=== PATIENT | female | born 1950 | race Caucasian/White ===

== ENCOUNTER 2017-06-30 22:21 | Emergency (ER) | payer MEDICARE, OTHER ==
[~2017-06-30] VITALS: Ht 162.6 cm; Wt 108.5 kg
[~2017-06-30 22:21] MED LIST: CYCLOBENZAPRINE10 MG PO; DICLOFENAC SODI75 MG PO; LEVOTHYROXINE100 MCG PO; LEVOTHYROXINE88 MCG PO; LISINOPRIL20 MG PO; LORCET HD 10-31 EACH PO; LOSARTAN POTASS25 MG PO; LOSARTAN-HCTZ1 EAC2 PO; MAGNESIUM OXID400 MG PO; MELOXICAM15 MG PO; METFORMIN HCL1000 MG PO; NORCO 5-325 TA1 EACH PO; SIMVASTATIN20 MG PO; SIMVASTATIN40 MG PO; VENTOLIN HFA18 GM INH
[2017-06-30] MEDS ORDERED: IBUPROFEN800 MG PO (23:01)
[2017-07-01] MEDS ORDERED: TAMIFLU75 MG PO (00:05)
== END 2017-07-01 00:17 | disposition home or self-care (01) ==
LOC: ED 22:21
DX: J11.1 Influenza due to unidentified influenza virus with other respiratory manifestations (principal); E78.00 Pure hypercholesterolemia, unspecified; I10 Essential (primary) hypertension; E03.9 Hypothyroidism, unspecified; E11.9 Type 2 diabetes mellitus without complications; Z87.891 Personal history of nicotine dependence; Z98.84 Bariatric surgery status; Z98.890 Other specified postprocedural states; Z88.5 Allergy status to narcotic agent; Z79.84 Long term (current) use of oral hypoglycemic drugs; Z79.899 Other long term (current) drug therapy
CPT/HCPCS: 71046; 99283

== ENCOUNTER 2019-12-08 11:41 | Emergency (ER) | payer MEDICARE, OTHER ==
[~2019-12-08] VITALS: Ht 162.6 cm; Wt 99.8 kg
[~2019-12-08 11:41] MED LIST changes: +IBUPROFEN800 MG PO; +TAMIFLU75 MG PO
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
[2019-12-08] MEDS ORDERED: BACTRIM DS TAB1 EACH PO (14:50)
--- NOTE | 2019-12-08 16:40 | EKG ---
[facility] [address] [facility] [place] [address] Signed Normal sinus rhythm Nonspecific ST and T wave abnormality Prolonged QT Abnormal ECG When compared with ECG of 15-SEP-2016 10:19, premature atrial complexes are no longer present Vent. rate has decreased BY 40 BPM T wave inversion less evident in Lateral leads Confirmed by TEODORA PEARCE DO ([id number]) on 12/08/2019 4:40:01 PM Electronically Signed By: TEODORA PEARCE DO 12/08/19 1640 PATIENT NAME: JUAN LAZO Electrocardiogram DATE OF : 50 PHYSICIAN: TEODORA PEARCE DO REPORT #: [id number] REPORT IS CONFIDENTIAL AND NOT TO BE RELEASED WITHOUT AUTHORIZATION
== END 2019-12-08 15:57 | disposition home or self-care (01) ==
LOC: ED 11:41
DX: N39.0 Urinary tract infection, site not specified (principal); E87.6 Hypokalemia; R47.81 Slurred speech; I10 Essential (primary) hypertension; E03.9 Hypothyroidism, unspecified; E11.9 Type 2 diabetes mellitus without complications; Z87.891 Personal history of nicotine dependence; Z88.5 Allergy status to narcotic agent; Z79.899 Other long term (current) drug therapy; Z79.84 Long term (current) use of oral hypoglycemic drugs
CPT/HCPCS: 70450; 70496; 70498; 71045; 80053; 81001; 84484; 85025; 85610; 85730; 93005; 93010; 99285-25; J0696; Q9967

== ENCOUNTER 2021-01-19 23:21 | Emergency (ER) | payer MEDICARE, OTHER ==
[~2021-01-19] VITALS: Ht 162.6 cm; Wt 99.8 kg
[~2021-01-19 23:21] MED LIST changes: +BACTRIM DS TAB1 EACH PO; -LOSARTAN-HCTZ1 EAC2 PO
--- OUTSIDE RECORDS SUMMARY | 2021-01-19 23:24 | XMS ---
PreManage Notification: JUAN LAZO Security Registered Nurse Obstetrics Events 1 event(s) in the past 18 months Most recent security events: Elopement at [facility] 11/26/2020 18:34 - Other Details: PATIENT LWBS. CRITERIA MET - PDMP CARE PROVIDERS NICOLASA REYES Internal Medicine: Pulmonary Disease 12/21/2018-Current PHONE: Unknown Tavo has no Care Guidelines for this patient. Care History Medical/Surgical 12/21/2018 [facility] - Patient is currently established with [facility]. If patient is seen in the ED during business hours. Please contact CHWs at [facility]. Care Recommendation: This patient has had 5 [...] care. E.D. VISIT COUNT (12 MO.) 2 [facility] TOTAL 2 NOTE: Visits indicate total known visits. ED/UCC VISIT TRACKING (12 MO.) 01/19/2021 23:22 [facility] [place] TYPE: Emergency COMPLAINT: - COLD SYMPTOMS 11/26/2020 18:34 [facility] [place] TYPE: Emergency COMPLAINT: - POST OP BRUISING INPATIENT VISIT TRACKING (12 MO.) No inpatient visits to display in this time frame [id number]
[2021-01-26] MEDS ORDERED: NITROFURANTOIN100 M1 PO (18:00)
[2021-01-26] MEDS ORDERED: NEOMYC-POLYM-DEX5 ML OU (18:00)
== END 2021-01-20 00:30 | disposition home or self-care (01) ==
LOC: ED 23:21
DX: U07.1 COVID-19 (principal); E78.00 Pure hypercholesterolemia, unspecified; I10 Essential (primary) hypertension; E03.9 Hypothyroidism, unspecified; E11.9 Type 2 diabetes mellitus without complications; Z88.5 Allergy status to narcotic agent; Z79.899 Other long term (current) drug therapy; Z79.84 Long term (current) use of oral hypoglycemic drugs
CPT/HCPCS: 94640; 99283; C9803; U0003

== ENCOUNTER 2021-01-22 20:10 | Emergency (ER) | payer MEDICARE, OTHER ==
[~2021-01-22] VITALS: Ht 162.6 cm; Wt 99.8 kg
--- OUTSIDE RECORDS SUMMARY | 2021-01-22 20:12 | XMS ---
PreManage Notification: JUAN LAZO Security Home Visitor Events 1 event(s) in the past 18 months Most recent security events: Elopement at [facility] 11/26/2020 18:34 - Other Details: PATIENT LWBS. CRITERIA MET - PDMP - [facility] - 2 Visits in 30 Days CARE PROVIDERS CHRSITINE BALDWIN Family Medicine 01/22/2021-Current PHONE: [phone] NICOLASA REYES Internal Medicine: Pulmonary Disease 12/21/2018-Current PHONE: Unknown Tavo has no Care Guidelines for this patient. Care History Medical/Surgical 12/21/2018 [facility] - Patient is currently established with [facility]. If patient is seen in the ED during business hours. Please contact CHWs at [facility]. Care Recommendation: This patient has had 5 or more Emergency Department visits in the last 12 months.\T\nbsp; Patient requires education on the scope and purpose of the ED as an acute care provider not a Primary Care Provider and should not be utilized for chronic conditions.\T\nbsp; These are guidelines and the provider should exercise clinical judgment when providing care. EElena VISIT COUNT (12 MO.) 3 [facility] TOTAL 3 NOTE: Visits indicate total known visits. ED/UCC VISIT TRACKING (12 MO.) 01/22/2021 20:10 [facility] [place] TYPE: Emergency COMPLAINT: - WEAKNESS, BODY ACHES 01/19/2021 23:22 [facility] [place] TYPE: Emergency COMPLAINT: - COLD SYMPTOMS 11/26/2020 18:34 [facility] [place] TYPE: Emergency COMPLAINT: - POST OP BRUISING INPATIENT VISIT TRACKING (12 MO.) No inpatient visits to display in this time frame [id number]
[2021-01-23] MEDS ORDERED: CEPHALEXIN500 MG PO (21:26)
[2021-01-23] MEDS ORDERED: PYRIDIUM200 MG PO (21:26)
[2021-01-23] MEDS ORDERED: ZOFRAN4 MG PO (21:31)
[2021-01-26] MEDS ORDERED: NITROFURANTOIN100 M1 PO (18:00)
[2021-01-26] MEDS ORDERED: NEOMYC-POLYM-DEX5 ML OU (18:00)
== END 2021-01-23 00:14 | disposition home or self-care (01) ==
LOC: ED 20:10
DX: U07.1 COVID-19 (principal); H10.9 Unspecified conjunctivitis; E78.00 Pure hypercholesterolemia, unspecified; I10 Essential (primary) hypertension; E03.9 Hypothyroidism, unspecified; E11.9 Type 2 diabetes mellitus without complications; Z88.5 Allergy status to narcotic agent; Z79.899 Other long term (current) drug therapy; Z79.84 Long term (current) use of oral hypoglycemic drugs
CPT/HCPCS: 71045; 80053; 85025; 99284-25; M0243; Q0244

== ENCOUNTER 2021-01-23 19:51 | Emergency (ER) | payer MEDICARE, OTHER ==
[~2021-01-23] VITALS: Ht 162.6 cm; Wt 99.8 kg
--- OUTSIDE RECORDS SUMMARY | 2021-01-23 19:54 | XMS ---
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 CRITERIA MET - [facility] - 2 Visits in 30 Days - PDMP CARE PROVIDERS CHRISTINE BALDWIN Family Medicine 01/22/2021-Current PHONE: [phone] NICOLASA REYES Internal Medicine: Pulmonary Disease 12/21/2018-Current PHONE: Unknown Tavo has no Care Guidelines for this patient. Care History Medical/Surgical 12/21/2018 [facility] - Patient is currently established with [facility]. If patient is seen in the ED during business hours. Please contact CHWs at [facility]. Care Recommendation: This patient has [...] providing care. EElena VISIT COUNT (12 MO.) 4 [facility] TOTAL 4 NOTE: Visits indicate total known visits. 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
[2021-01-23] MEDS ORDERED: CEPHALEXIN500 MG PO (21:26)
[2021-01-23] MEDS ORDERED: PYRIDIUM200 MG PO (21:26)
[2021-01-23] MEDS ORDERED: ZOFRAN4 MG PO (21:31)
--- NOTE | 2021-01-24 16:54 | EKG ---
[facility] [address] [facility] [facility] [place], [place] [address] Signed Normal sinus rhythm Nonspecific ST and T wave abnormality Abnormal ECG When compared with ECG of 08-DEC-2019 12:21, No significant change was found Confirmed by AURORA GRIMES MD ([id number]) on 01/24/2021 4:54:18 PM Electronically Signed By: AURORA GRIMES MD 01/24/21 1654 PATIENT NAME: GENE LAZOWADE LEÓN Electrocardiogram DATE OF : 50 PHYSICIAN: AURORA GRIMES MD REPORT #: [id number] REPORT IS CONFIDENTIAL AND NOT TO BE RELEASED WITHOUT AUTHORIZATION
[2021-01-26] MEDS ORDERED: NEOMYC-POLYM-DEX5 ML OU (18:00)
[2021-01-26] MEDS ORDERED: NITROFURANTOIN100 M1 PO (18:00)
== END 2021-01-23 21:53 | disposition home or self-care (01) ==
LOC: ED 19:51
DX: U07.1 COVID-19 (principal); N39.0 Urinary tract infection, site not specified; E78.00 Pure hypercholesterolemia, unspecified; I10 Essential (primary) hypertension; E03.9 Hypothyroidism, unspecified; E11.9 Type 2 diabetes mellitus without complications; Z88.5 Allergy status to narcotic agent; Z79.899 Other long term (current) drug therapy; Z79.84 Long term (current) use of oral hypoglycemic drugs
CPT/HCPCS: 81001; 93005; 93010; 99283-25

== ENCOUNTER → 2021-01-26 | Emergency (ER) | payer MEDICARE, OTHER ==
[~2021-01-26] VITALS: Ht 162.6 cm; Wt 99.8 kg
[~2021-01-26] MED LIST changes: +ACETAMINOPHEN500 MG PO; +CEPHALEXIN500 M1 PO; +CEPHALEXIN500 MG PO; +CIPROFLOXACIN500 MG PO; +DEXAMETHASONE6 MG PO; +HYDROCODON-ACE1 EA10 PO; +LOSARTAN-HCTZ1 EAC2 PO; +MELATONIN1 MG PO; +MELATONIN3 MG PO; +NEOMYC-POLYM-DEX5 ML OU; +NITROFURANTOIN100 M1 PO; +PANTOPRAZOLE SO40 MG PO; +PYRIDIUM200 MG PO; +SIMVASTATIN10 MG PO; +SUCRALFATE1 GM PT; +ZOFRAN4 MG PO
--- OUTSIDE RECORDS SUMMARY | 2021-01-26 17:54 | XMS ---
PreManage Notification: JUAN LAZO Security Cognos Administrator Events 1 event(s) in the past 18 months Most recent security events: Elopement at [facility] 11/26/2020 18:34 - Other Details: PATIENT LWBS. CRITERIA MET - PDMP - [facility] - 2 Visits in 30 Days CARE PROVIDERS CHRISTINE BALDWIN Family Medicine 01/22/2021-Current PHONE: [phone] NICOLASA REYES Internal Medicine: Pulmonary Disease 12/21/2018-Current PHONE: Unknown Tavo has no Care Guidelines for this patient. Care History Medical/Surgical 12/21/2018 [facility] - Patient is currently established with [facility]. If patient is seen in the ED during business hours. Please contact CHWs at [facility]. Care Recommendation: This patient has [...] providing care. EElena VISIT COUNT (12 MO.) 5 [facility] TOTAL 5 NOTE: Visits indicate total known visits. ED/UCC VISIT TRACKING (12 MO.) 01/26/2021 17:52 [facility] [place] TYPE: Emergency COMPLAINT: - BODY ACHES 01/23/2021 19:51 [facility] [place] TYPE: Emergency COMPLAINT: - FLU SYMPTOMS DIAGNOSES: - Fever, unspecified - Pure hypercholesterolemia, unspecified - Urinary tract infection, site not specified - Essential (primary) hypertension - watermaster (current) use of oral hypoglycemic drugs - Type 2 diabetes mellitus without complications - Hypothyroidism, unspecified - Other buttermaker (current) drug therapy - COVID-19 - Allergy status to narcotic agent 01/22/2021 20:10 [facility] [place] TYPE: Emergency COMPLAINT: - WEAKNESS, BODY ACHES DIAGNOSES: - Other buttermaker (current) drug therapy - Hypothyroidism, unspecified - Unspecified conjunctivitis - Allergy status to narcotic agent - Essential (primary) hypertension - Headache, unspecified - Pure hypercholesterolemia, unspecified - watermaster (current) use of oral hypoglycemic drugs - COVID-19 - Type 2 diabetes mellitus without complications 01/19/2021 23:22 [facility] TYPE: Emergency COMPLAINT: - COLD SYMPTOMS DIAGNOSES: - COVID-19 - Pure hypercholesterolemia, unspecified - Allergy status to narcotic agent - Headache, unspecified - watermaster (current) use of oral hypoglycemic drugs - Type 2 diabetes mellitus without complications - Other buttermaker (current) drug therapy - Hypothyroidism, unspecified - Essential (primary) hypertension 11/26/2020 18:34 [facility] [place] TYPE: Emergency COMPLAINT: - POST OP BRUISING INPATIENT VISIT TRACKING (12 MO.) No inpatient visits to display in this time frame [id number]
== END ==
LOC: ED 17:51
DX: U07.1 COVID-19 (principal); M79.10 Myalgia, unspecified site; E78.00 Pure hypercholesterolemia, unspecified; I10 Essential (primary) hypertension; E03.9 Hypothyroidism, unspecified; E11.9 Type 2 diabetes mellitus without complications; Z88.5 Allergy status to narcotic agent; Z79.899 Other long term (current) drug therapy; Z79.84 Long term (current) use of oral hypoglycemic drugs
CPT/HCPCS: 80053; 85025; 99284

== ENCOUNTER 2021-01-27 18:21 | Inpatient (IN) | payer MEDICARE, OTHER ==
[~2021-01-27] VITALS: Ht 162.6 cm; Wt 105.0 kg
[~2021-01-27 18:21] MED LIST changes: -ACETAMINOPHEN500 MG PO; -CEPHALEXIN500 M1 PO; -CIPROFLOXACIN500 MG PO; -DEXAMETHASONE6 MG PO; -HYDROCODON-ACE1 EA10 PO; -LOSARTAN-HCTZ1 EAC2 PO; -MELATONIN1 MG PO; -MELATONIN3 MG PO; -PANTOPRAZOLE SO40 MG PO; -SIMVASTATIN10 MG PO; -SUCRALFATE1 GM PT
--- OUTSIDE RECORDS SUMMARY | 2021-01-27 18:24 | XMS ---
PreManage Notification: JUAN LAZO Security Skilled Nursing Professional Events 1 event(s) in the past 18 months Most recent security events: Elopement at [facility] 11/26/2020 18:34 - Other Details: PATIENT LWBS. CRITERIA MET - PDMP - 6 ED Visits in 6 Months - [facility] - 2 Visits in 30 Days CARE PROVIDERS CHRISTINE BALDWIN [facility] 01/22/2021-Current PHONE: [phone] NICOLASA REYES Internal Medicine: Pulmonary Disease 12/21/2018-Current PHONE: Unknown Tavo has no Care Guidelines for this patient. Care History Medical/Surgical 12/21/2018 [facility] - Patient is currently established with [facility]. If patient is seen in the ED during business hours. Please contact CHWs at [facility]. Care Recommendation: This patient has had 5 [...] providing care. EElena VISIT COUNT (12 MO.) 6 [facility] TOTAL 6 NOTE: Visits indicate total known visits. 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 - Type 2 diabetes mellitus without complications - Hypothyroidism, unspecified - Other snf (current) drug therapy - COVID-19 - Allergy status to narcotic agent 01/22/2021 20:10 [facility] [place] TYPE: Emergency COMPLAINT: - WEAKNESS, BODY ACHES DIAGNOSES: - Other ferry terminal agent (current) drug therapy - Hypothyroidism, unspecified - Unspecified conjunctivitis - Allergy status to narcotic agent - Essential (primary) hypertension - Headache, unspecified - Pure hypercholesterolemia, unspecified - 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 - COVID-19 - Type 2 diabetes mellitus without complications 01/19/2021 23:22 [facility] TYPE: Emergency COMPLAINT: - COLD SYMPTOMS DIAGNOSES: - COVID-19 - Pure hypercholesterolemia, unspecified - Allergy status to narcotic agent - Headache, unspecified - 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
--- NOTE | 2021-01-27 21:00 | NUR ---
rEPORT RECIEVED FROM COMMUNICATIONS FIELD TECHNICIAN PT TRANSPORTED VIA STRETCHER BY FLOAT RN ON YARD DRIVER AND 2 L NC. PT UNABLE TO MOVE SELF FROM STRETCHER.
--- NOTE | 2021-01-27 22:00 | NUR ---
ASSESSMENT COMPLETED. PT TEARFUL, ANXIOUS, AND NOT FOLLOWING COMMANDS. PT HAS HARSH COUGH. FINE CRACKLES NOTED IN BOTH LUNG BASES. DISTAL PULSES ARE FAINT AND THREADY. IV REMDESIVIR AND MAGNESIUM NOW INFUSING. THIS RN REMAINS IN ROOM
--- NOTE | 2021-01-27 23:00 | NUR ---
IV MAGNESIUM AND POTASSIUM INFUSING. REMDESIVIR COMPLETED. PT CRYING OUT FOR WATER, DISCUSSED FLUID RESTRICTION WITH PT. DUMONT CATHETER INSERTED AND URINE SAMPLE SENT TO LAB. MULTIPLE ATTEMPTS TO START AN ADDITIONAL IV AND GET AN ABG. UNSUCCESSFUL. RT IN ROOM AT THIS TIME TO ATTEMPT AN ABG VALUE
--- NOTE | 2021-01-27 23:22 | NUR ---
2305 ABG performed. L. Radial post Tadeo's test. NC/2LPM in use = pulse oximetry reading 96%. Pressure held for 10 minutes. Stacey Clifford, SURGICAL SERVICES COORDINATOR
--- NOTE | 2021-01-27 23:25 | NUR ---
PT Given PRN medication pain (see emar). spoke with daughter on the phone to update daughter on patients condition. IV potassium and magnesium continue to infuse at this time.
--- NOTE | 2021-01-28 03:10 | NUR ---
First sample sent to lab for 2 AM labs hemolyzed. five attempts by two RNs to get blood. sent to lab. Assessment completed. Pt saline locked at this time.
--- NOTE | 2021-01-28 04:40 | NUR ---
DR MILLER UPDATED ON PT LABS. AWAITING ORDERS
--- NOTE | 2021-01-28 05:30 | NUR ---
iv fluids now infusing, PO medication given. Completed a bed change a bull care for Bowel movement. pt now resting on left side. Call light within reach. denies further needs at this time.
--- NOTE | 2021-01-28 07:00 | NUR ---
Report received from systems accountant RNs, pt resting in bed with eyes closed, respirations even and unlabored. IVF infusing WNL. On 2L O2 NC. VSS, no needs identified at this time, will continue plan of care
--- NOTE | 2021-01-28 07:30 | NUR ---
PATIENT SHIFT REPORT RECIEVED FROM PERSONAL FINANCIAL COUNSELOR RN. PATIENT RESTING IN BED AT THIS TIME. PATIENT HAS A CATHETER IN PLACE WITH CLEAR YELLOW URINE NOTED. THIS RN WITHH BE ASSISTING MICKY RN WITH PATIENT CARE. NO OTHER NEEDS AT THIS TIME. WILL CONTINUE TO FRED SARAH.
[2021-01-28] MEDS ORDERED: SIMVASTATIN10 MG PO (08:07)
[2021-01-28] MEDS ORDERED: LEVOTHYROXINE88 MCG PO (08:07)
[2021-01-28] MEDS ORDERED: HYDROCODON-ACE1 EA10 PO (08:10)
[2021-01-28] MEDS ORDERED: LOSARTAN-HCTZ1 EAC2 PO (08:17)
--- NOTE | 2021-01-28 08:30 | NUR ---
Scheduled medications administered, assessment complete. Breakfast ordered. VSS, pt A+Ox4. CBG checked and 5 units insulin administered. I/O's complete and bull care/enamorado care done. Fine crackles noted throughout MIGUEL, LL, RL lung lobes, expiratory wheeze upon auscultation in LL. Pt has occasional, generally nonproductive cough. HRR. Slight left facial droop noted, unclear if baseline, MD notified. ZULEYKA Pete in room to draw labs.
--- NOTE | 2021-01-28 09:00 | NUR ---
IV bolus complete, pt saline locked. C/O cold breakfast, applesauce given. Pt has no other needs at this time. Warm blankets wrapped around BUE for lab draw. Pt able to use call light, in reach.
--- NOTE | 2021-01-28 09:30 | NUR ---
THIS RN IN TO DRAW AM LABS AND WAS UNSUCESSFUL. WILL HAVE OTHER RN ATTEPMT AM LABS. PATIENT NOTED TO HAVE SOME SLIGHT LEFT SIDED FACIAL DROOP. NO OTHER NEUROLOGICAL ABNORMALITIES UPON ASSESSMENT. THIS RN ASKED PATIENT IF HER SMILE WAS EXACT OR IF IT DROOPS AND PATIENT STATED "MY SMILE IS KIND OFF". UPDATED MD NO NEW ORDERS. MD WILL BE IN TO SEE PATIENT. PATIENT IS ALERT AT THIS TIME AND WANTS TO EAT BREKFAST. WILL CONTINUE TO CLSOELY MONITOR.
--- NOTE | 2021-01-28 10:30 | NUR ---
JULISSA GARDINER IN TO START ULTRASOUND GUIDED PERIPHERAL LINE D/T DIFFICULT IV STARTS/DIFFICULTIES WITH DRAWING BLOOD.
--- NOTE | 2021-01-28 12:30 | NUR ---
MD MILLER IN THE UNIT. SEE NEW ORDERS FOR RECENT LABS. THIS RN AND MICKY RN IN WITH PATIENT. ASSESSMENT COMPELTED. PATIENT NOTED TO BE A LITTLE MORE DROWSY AT THIS TIME, BUT AWAKENS TO VOICE. MD MILLER IN TO SEE PATIENT. PATIENT SPOKE WITH MD MILLER. MD UPDATED PATIENT AND STAFF ON PLAN OF CARE. NO OTHER NEEDS AT THIS TIME. WILL CONTINUE TO CLOSELY MONITOR.
--- NOTE | 2021-01-28 12:55 | EKG ---
[facility] [address] [facility] [place] [address] Signed Normal sinus rhythm Nonspecific ST and T wave abnormality Abnormal ECG When compared with ECG of 23-JAN-2021 20:29, No significant change was found Confirmed by ABIMAEL MILLER MD ([id number]) on 01/28/2021 12:55:04 PM Electronically Signed By: ABIMAEL MILLER MD 01/28/21 1255 PATIENT NAME: JUAN LAZO EVELIOWAQAR Electrocardiogram DATE OF : 50 PHYSICIAN: ABIMAEL MILLER MD REPORT #: [id number] REPORT IS CONFIDENTIAL AND NOT TO BE RELEASED WITHOUT AUTHORIZATION
--- NOTE | 2021-01-28 13:28 | NUR ---
PATIENT RESTING IN BED AT THIS TIME. PATIENT CALLED ABOUT HER DUMONT CATHETER. THIS RN WAS IN JUST PRIOR AND CHECKED IT. IT CONTINUES TO DRAIN CLEAR YELLOW URINE WITH NO ISSUES. REASSURED PATIENT IT IS WORKING WELL. WILL CONTINUE TO CLOSELY MONITOR.
--- NOTE | 2021-01-28 14:00 | NUR ---
MARIOLA GARDINER IN TO DRAW LABS AFTER BOLUS OF D5 WAS FINISHED. PATIENT DENIED ANY OTHER NEEDS AT THIS TIME.
--- NOTE | 2021-01-28 14:45 | NUR ---
THIS RN AND DIRECTOR NURSING SERVICE DAVID IN TO ASSIST PATIENT UP TO CAMMODE. PATIENT WAS ABLE TO STAND WITH WALKER AND TURN TO CAMMODE WITH GUIDANCE. PATIENT IS WEAK WITH STANDING, BUT WAS ABLE TO MOVE WELL. PATIENT HAD A MEDIUM LOOSE BOWEL MOVEMENT. CLEANED PATIENT. NEW BEDDING ON BED. PATIENT MOANING AND STATES "MY BELLY HURTS". PLACED A WARM BLANKET ON PATIENTS ABD FOR COMFORT. PATIENT RESTING IN BED AT THIS TIME WITH CALL LIGHT IN REACH. CALLED MD MILLER WITH CRITICAL LABS AND TO UPDATE ABOUT PATIENTS BM AND ABD CRAMPING. MD WILL PLACE NEW ORDERS. NO OTHER NEEDS AT THIS TIME.
--- NOTE | 2021-01-28 15:30 | NUR ---
MEDICATIONS GIVEN PATIENT STATES "MY BELLY FEELS A LITTLE BETTER". PATIENT ABLE TO TAKE MEDICATIONS WITH NO ISSUES. NO OTHER NEEDS AT THIS TIME. WILL CONTINUE TO CLOSELY MONITOR.
--- NOTE | 2021-01-28 17:37 | NUR ---
JULISSA RN IN TO GIVE PATIENT PM MEDICATIONS. PATIENT AWAKE AND TOELRATED WELL. PATIENT DENIES ANY OTHER NEEDS AT THSI TIME.
--- NOTE | 2021-01-28 18:40 | NUR ---
THIS RN IN TO GIVE PATIENT HER DINNER. PATIENT DENIES ANY OTHER NEEDS AT THIS TIME. WILL CONTINUE TO CLOSELY MONITOR.
--- NOTE | 2021-01-28 19:30 | NUR ---
RECEIVED REPORT FROM DAYSHIFT RNS. pt RESTING IN BED. USED CALL LIGHT TO INFORM NURSES SHE HAD BRUSHED HER HAIR. CALL LIGHT WITHIN REACH.
--- NOTE | 2021-01-28 20:00 | NUR ---
IN TO DRAW BLOOD. pt TALKED THROUGHOUT DRAW. REPORT A SLIGHT HEADACHE. ASKED ABOUT HOW MUCH SHE COULD DRINK. EXPLAINED FLUID RESTRICTION. LAB DRAW COMPLETED. pt SITTING UP IN BED. CALL LIGHT WITHIN REACH. WHITEBOARD UPDATED.
--- NOTE | 2021-01-28 20:44 | NUR ---
UPDATED MD ON CRITICAL LAB VALUE. MD WILL PUT IN NEW ORDERS.
--- NOTE | 2021-01-28 20:51 | NUR ---
RECEIVED CALL FROM , NO NEW ORDERS AT THIS TIME. CALL WHEN 0200 LABS RESULT.
--- NOTE | 2021-01-28 21:30 | NUR ---
IN TO DO ASSESSMENT. pt SITTING IN BED. PROVIDED WATER. DISCUSSED FLUID RESTRICTION. pt HAS MINIMAL UNDERSTANDING AT THIS TIME. DUMONT CARE DONE. pt NOTED TO HAVE LIQUID BM. pt ABLE TO MOVE SELF TO SIDE OF BED. ASSISTED TO STAND AND PIVOT TO BSC 2PA. PERICARE AND DUMONT CARE DONE. LINENS CHANGED. DEPENDS ON. pt AMBULATED 1PA BACK TO BED. ABLE TO LIFT BOTH LEGS INTO BED WITHOUT ASSISTANCE. LABORED BREATHING WITH MOVEMENT. SAT 89% ON 2L NC, INCREASED TO MID 90'S AFTER A SHORT REST IN BED. ASSESSMENT DONE. BOWEL TONES ACTIVE. CRACKLES THROUGHOUT LUNGS. IV MED INFUSING PER ORDERS. CALL LIGHT WITHIN REACH.
--- NOTE | 2021-01-28 21:36 | NUR ---
blood drawn and sent to lab. Pt repositioned onto right side with the help of two nurses. redness noted on left hip. will continue to monitor bony prominences. Urine remains tea colored and odiforous. call light within reach. Will continue to monitor.
--- NOTE | 2021-01-28 22:01 | NUR ---
PRN TYLENOL GIVEN FOR HEADACHE 09/16 (SEE MAR). pt TOOK PILL WITH APPLESAUCE, NO ISSUES SWALLOWING. IV INFUSION COMPLETED. SL. ROOM TIDIED. CALL LIGHT WITHIN REACH.
--- NOTE | 2021-01-28 23:59 | NUR ---
CALL LIGHT ON. pt REQUESTED WATER. PROVIDED, EDUCATION DONE ON FLUID RESTRICTION. pt REQUESTED TO BE TURNED ON HER RIGHT SIDE, REPOSITION. THEN REQUESTED TO BE TURNED TO HER LEFT SIDE. pt ABLE TO MOVE SELF UP IN A WITH MUCH COACHING. REPOSITIONED ON LEFT SIDE. ASSESSMENT DONE. NO CHANGES. HEADACHE "BETTER" CALL LIGHT WITHIN REACH.
--- NOTE | 2021-01-29 00:12 | NUR ---
CALL LIGHT ON. pt REQUESTED THE TV OFF AND THE CURTAIN PULLED. DONE PER REQUEST. CALL LIGHT IN HAND.
--- NOTE | 2021-01-29 00:20 | NUR ---
CALL LIGHT ON. pt REPORTED DISCOMFORT AROUND CATHETER. ASSISTED TO REPOSITION. CALL LIGHT WITHIN REACH.
--- NOTE | 2021-01-29 00:45 | NUR ---
CALL LIGHT ON. pt REPORTS DISCOMFORT WITH CATHETER. APPLIED BARRIER CREAM. CALL LIGHT WITHIN REACH.
--- NOTE | 2021-01-29 01:38 | NUR ---
CALL LIGHT ON. pt CONTINUES TO COMPLAIN OF DISCOMFORT WITH DUMONT. pt HAD LIQUID BM. VERY TENDER WITH DUMONT CARE BEFORE. pt RELATED THAT SHE HAD A UTI AND THE DOCTOR WAS TREATING IT, AT HOME SHE REPORTED PUTTING VASOLINE ON HER LABIA. pt MOANED IN PAIN WHILE BEING CLEANED. DRIED AND BARRIER CREAM APPLIED. pt ASSISTED TO ROLL ON LEFT SIDE FOR COVID PROTOCOL. CALL LIGHT WITHIN REACH.
--- NOTE | 2021-01-29 02:37 | NUR ---
IN TO DRAW LAB. FOUR ATTEMPTS. pt MOANING WHEN THIS RN ENTERED ROOM AFTER BEING TOUCHED TO PREPARE FOR DRAW pt BECAME SILENT AND RESPIRATIONS WERE REGULAR AND EVEN. pt BEGAN MOANING AGAIN WHEN LIGHTS WERE SWITCHED OFF. CALL LIGHT WITHIN REACH.
--- NOTE | 2021-01-29 02:53 | NUR ---
CALL LIGHT ON. pt REPORTED "A HEADACHE" PRN PAIN MEDICATION GIVEN (SEE MAR). ASSISTED TO REPOSITION. CALL LIGHT WITHIN REACH.
--- NOTE | 2021-01-29 03:05 | NUR ---
CRITICAL VALUE RECEIVED, CALLED MD. NO NEW ORDERS AT THIS TIME.
--- NOTE | 2021-01-29 05:21 | NUR ---
CALL LIGHT ON. pt REPORTED 3/10 HEADACHE. ASSISTED pt TO REPOSITION. DUMONT EMPTIED. NO BM AT THIS TIME. CALL LIGHT WITHIN REACH. DISCUSSED PAIN MANAGEMENT
--- NOTE | 2021-01-29 05:30 | NUR ---
CALL LIGHT ON. pt REQUESTED PRN PAIN MEDICATION. EXPLAINED WHEN THE NEXT AVAILABLE MEDICATION IS. pt MOANING. PROVIDED A COOL COMPRESS. CALL LIGHT WITHIN REACH.
--- NOTE | 2021-01-29 06:38 | NUR ---
pt CONTINUES TO CALL. IN TO GIVE PAIN MEDICATION. pt QUIT MOANING WHILE DISCUSSING BREAKFAST OPTIONS, INTERESTED IN EATING. WATER PROVIDED. ASSISTED pt TO REPOSITION. pt ABLE TO BOOST IN BED WITH COACHING. DEPENDS DRY AT THIS TIME. CALL LIGHT WITHIN REACH.
--- NOTE | 2021-01-29 07:36 | NUR ---
REPORT RECEIVED FROM NIGHTSHIFT RN, WILL CONTINUE PLAN OF CARE.
--- NOTE | 2021-01-29 08:00 | NUR ---
Scheduled medications administered including 1 unit SS insulin. Assessment complete, noted crackles throughout lungs and pt c/o pain "everywhere". Pt continually moaning out between words. Pt can answer questions and is alert to self, situation, place, date. Unaware of specific time of day. Up to BSC with 1PA and FWW to have BM. Linens and attends changed, bull care done with barrier spray. Cohen care complete. VSS, on 2L O2 NC with desat to 80% with exertion, quickly returns to 95%. Repositioned in bed, warm blankets provided, made plan for next available PRN medications. Breakfast ordered. No other needs at this time, call light in reach
--- NOTE | 2021-01-29 08:55 | NUR ---
DR. MILLER NOTIFIED OF PT'S CRITICAL LAB VALUE, SODIUM OF 117, ORDERS TO BE GIVEN, WILL CONTINUE PLAN OF CARE.
--- NOTE | 2021-01-29 09:45 | NUR ---
THIS RN IN TO CHECK ON PT AND ADMINISTER ORDERED IVF. PT LAYING IN BED AWAKE AND ALERT. NEW BREAKFAST PROVIDED TO PT AT THIS TIME AND OXYGEN SLOWLY TITRATED FROM 3L O2 NC TO COMPLETELY OFF OXYGEN AT REST DURING THIS TIME. PT DENIES SHORTNESS OF BREATH AT THIS TIME BOTH WHILE ON 3L O2 AND WHEN OFF OF OXYGEN. PT ASSESSED AT THIS TIME. ORDERED 3% SALINE STARTED AT ORDERED RATE OF 35 ML/HR. PT REPORTS NO FURTHER NEEDS WHEN ASKED AND IS RESTING IN BED, IVF INFUSING ORDERED, PT ON ROOM AIR, SPO2 MAINTAINING 90-93% WHILE RESTING. CALL LIGHT IN REACH, BED IN LOWEST POSITION, WILL CONTINUE PLAN OF CARE.
--- NOTE | 2021-01-29 10:04 | NUR ---
THIS RN IN TO PLACE PT BACK ON OXYGEN. PT NOTED TO DESATURATE TO 86-87% WHEN SLEEPING WHILE ON ROOM AIR. PT PLACED ON 1L O2 NC, SPO2 NOW AT 96%. PT REPORTS NO FURTHER NEEDS AND RETURNED BACK TO SLEEP, WILL CONTINUE PLAN OF CARE. CALL LIGHT IN REACH, BED IN LOWEST POSITION, IVF INFUSING ORDERED.
--- NOTE | 2021-01-29 12:05 | NUR ---
Call light answered, pt states catheter hurting her, okay with removal of enamorado. Removed by this RN, 100ml in bag. CBG checked, 166. Lunch ordered, no other needs at this time. On room air. Call light in reach.
--- NOTE | 2021-01-29 12:48 | NUR ---
Scheduled medications administered, 1 unit SS insulin provided. Lunch provided. Pt transfers to BS with SBA and FWW. Moderate sized BM, 50 ml void of concentrated urine. Noemy care complete, underpad and attends changed. Titrated pt to 1L O2 NC during exertion as sats dropping to 86-89%. Pt recovers quickly and returned to room air once settled in bed. No other needs at this time, pt eating lunch and watching tv. call light within reach
--- NOTE | 2021-01-29 14:00 | NUR ---
Update from Rn, 02 at 2l with sat 96%. Will contact pt by phone or contact family for assessment.
--- NOTE | 2021-01-29 14:00 | NUR ---
THIS RN IN TO CHECK ON PT AND DRAW LABS. PT SPO2 88% ON ROOM AIR AT THIS TIME AND DECREASED TO 86%. PT TOLD TO TAKE DEEP BREATHS AND WAS PLACED ON 1L O2 NC. PT DENIED SOB WHEN ASKED AT THIS TIME. SPO2 INCREASED AND IS NOW MAINTAINING AT 97%. PT STILL DROWSY AND STATES SHE WANTS TO REST. PT LAB DRAWN AT THIS TIME OFF OF 18G IV IN JONATHAN. LABS SENT AND IV SALINE LOCKED. PT REPORTS NO FURTHER NEEDS AT THIS TIME WHEN ASKED, WILL CONTINUE PLAN OF CARE. CALL LIGHT IN REACH, BED IN LOWEST POSITION, IVF INFUSING AT ORDERED RATE.
--- NOTE | 2021-01-29 14:45 | NUR ---
DR. MILLER NOTIFIED OF PT'S CRITICAL LAB VALUE'S WITH A SODIUM OF 116 AND CALCIUM OF 6.8. NEW ORDERS GIVEN TO INCREASE RATE OF 3% SALINE TO 50MLS/HR. WILL CONTINUE PLAN OF CARE.
--- NOTE | 2021-01-29 14:52 | NUR ---
THIS RN IN TO INCREASE RATE OF 3% NS. PT LAYING IN BED SLEEPING WHILE ON 1L O2 NC. RATE OF 3% IV SALINE INCREASE TO 50ML/HR AT THIS TIME. PT AWOKE TO VOICE AND REPORTED NO FURTHER NEEDS, PT STILL DROWSY BUT ANSWERING QUESTIONS AND FOLLOWING COMMANDS. DINNER ORDER TAKEN FOR PT AT THIS TIME. PT REPORTS NO FURTHER NEEDS WHEN ASKED, WILL CONTINUE PLAN OF CARE. CALL LIGHT IN REACH, BED IN LOWEST POSITION, IVF INFUSING AT ORDERED RATE.
--- NOTE | 2021-01-29 15:13 | NUR ---
RESPONDED TO PT CALL LIGHT, PT LAYING IN BED ON 1L O2 NC AWAKE. PT STATED THAT HER BACK HURT AND WANTED ASSISTANCE IN REPOSITIONING. PT ALSO STATED SHE WOULD TAKE A PRN TYLENOL. THIS RN IN TO ASSIST PT AND ADMINISTER PRN MEDICATION. PRN TYLENOL ADMINISTERED AT THIS TIME (SEE MAR). PT THEN ASSISTED IN TURNING TO HER LEFT SIDE TO REST. PT REPORTS NO FURTHER NEEDS AT THIS TIME WHEN ASKED AND DENIES THE NEED TO VOID AT THIS TIME. WILL CONTINUE PLAN OF CARE. CALL LIGHT IN REACH, BED IN LOWEST POSITION, IVF INFUSING ORDERED.
--- NOTE | 2021-01-29 16:00 | NUR ---
In room for vitals, assessment. Pt continues to have fine crackles in lower lung lobes, SOB and desaturation to 85% with exertion. Titrated to 2L with exertion to maintain sats above 90%. Pt has intermittent cough with occasional sputum production. Pt transfers to BSC with 1PA, increasingly weak with this transfer. Continues to c/o burning pain with voiding, when asked if she took her home dose of ABX for previous dx of UTI, pt states "a couple". notified regarding this. Pt has approx 10 ml liquid stool along with void. Back to bed, VSS, no further needs at this time, call light in reach
--- NOTE | 2021-01-29 17:37 | NUR ---
Scheduled medications administered, pt resting in bed with 1.[address] at this time, SPO2 90-92%. Pt able to swallow pills with water with no difficulty. 1 unit SS insulin administered for CBG 170. Pt states "I still hurt", this RN reassured we are working on her care plan and she is agreeable to this. IVF infusing WNL. Dinner provided. No other needs at this time, call light in reach.
--- NOTE | 2021-01-29 18:00 | NUR ---
UA collected via mini cath, pt tolerated well. Dinner complete, remote control given to patient. No other needs at this time, call light in reach.
--- NOTE | 2021-01-29 19:30 | NUR ---
RECEIVED REPORT FROM DAYSHIFT RNS. pt AWAKE AND ALERT. REQUESTED TO VOID. UP 1PA TO BSC AND BACK TO BED. URINE AND A SMALL STOOL. pt REQUIRED VERBAL COACHING. ABLE TO GET LEGS BACK IN BED BY SELF. CALL LIGHT WITHIN REACH.
--- NOTE | 2021-01-29 20:00 | NUR ---
IN TO DRAW LABS. pt RESTING IN BED. CALL LIGHT WITHIN REACH.
--- NOTE | 2021-01-29 21:03 | NUR ---
CALL MD ABOUT SODIUM VALUE. ORDERED TO STOP 3% SALINE.
--- NOTE | 2021-01-29 21:30 | NUR ---
IN TO DO ASSESSMENT. pt DROWSY, PRONOUNCED DROOP TO LEFT MOUTH, SIMILAR TO WHAT HAS BEEN REPORTED. 2PA TO BOOST IN BED. SAT UP FOR MEDICATIONS. pt TOOK WITHOUT ISSUE. LUNGS HAVE CRACKLES THROUGHOUT. pt ON 2L O2 VIA NC. DENIED PAIN AT THIS TIME BUT DID REQUEST PRN PAIN MEDICATION, GIVEN WITH SCEDULED MEDS. pt IS CONTINENT OF STOOL AND URINE AT THIS TIME. ASSISTED pt TO LAY ON LEFT SIDE. CALL LIGHT WITHIN REACH. pt IS MOANING CONSTANTLY, CONTINUES TO DENY PAIN.
--- NOTE | 2021-01-29 22:00 | NUR ---
DR MILLER PLACED ORDERS FOR 3% SALINE TO BE INFUSED, INFUSING PER ORDERS.
--- NOTE | 2021-01-29 22:37 | NUR ---
CALL LIGHT ON. pt UP TO BSC. REPORTED PAIN NEAR IV SITE. REMOVED COBAN, pt REPORTED RELIEVE. SLIGHT REDNESS NOTED AT IV SITE, DC'D PER PROTOCOL. IFV CONTINUES TO INFUSE PER ORDERS. CALL LIGHT WITHIN REACH. pt RESTING IN BED ON RIGHT SIDE.
--- NOTE | 2021-01-29 23:40 | NUR ---
ROUNDED ON pt. RESTING ON SIDE. QUIET. EYES CLOSED, RESPIRATIONS REGULAR RATE = 22. CALL LIGHT WITHIN REACH.
--- NOTE | 2021-01-30 00:21 | NUR ---
IV PUMP BEEPING, ERROR RESOLVED pt REQUESTED ASSISTANCE TO VOID. SAMRA GARDINER ASSISTED TO BSC 1PA AND BACK TO BED. LAYING ON LEFT SIDE. MOANING. NO CHANGES IN ASSESSMENT. IV INFUSING PER ORDERS. CALL LIGHT WITHIN REACH. WARM BLANKET PROVIDED.
--- NOTE | 2021-01-30 02:30 | NUR ---
IN TO DO LAB DRAW. SAMRA GARDINER ASSISTED pt TO BSC. pt COMPLAINS OF BEING COLD. PROVIDED WARM BLANKETS. 1PA BACK TO BED. UNMEASURED VOID. pt REPORTED A HEADACHE 2/10, PRN GIVEN (SEE MAR). pt RESTING IN BED ON LEFT SIDE. MULTIPLE ATTEMPTS TO DRAW LABS. SPECIMEN SENT TO LAB. CALL LIGHT WITHIN REACH.
--- NOTE | 2021-01-30 03:12 | NUR ---
CALLED MD WITH LAB DRAW RESULTS. ORDERED TO STOP 3% SALINE. DONE. pt SL ON ALL IV'S. RESTING IN BED WITH EYES CLOSED, RESPIRATIONS REGULAR. CALL LIGHT WITHIN REACH.
--- NOTE | 2021-01-30 03:49 | NUR ---
CALL LIGHT ON. pt UP TO VOID 1PA BSC AND BACK TO BED. MOANING CONSTANTLY. PROVIDED WARM BLANKETS. NO FURTHER REQUESTS AT THIS TIME. CALL LIGHT WITHIN REACH.
--- NOTE | 2021-01-30 04:24 | NUR ---
CALL LIGHT ON. pt UP TO BSC 1PA AND BACK TO BED. ASSESSMENT DONE. LUNGS DIM IN THE BASES WITH CRACKLES. EXP WHEEZE. pt CONTINUED TO MOAN THROUGHOUT ASSESSMENT. REPORTED 2/10 PAIN FOR A HEADACHE. DISCUSSED PAIN MANAGEMENT. pt IN BED. CALL LIGHT WITHIN REACH.
--- NOTE | 2021-01-30 04:31 | NUR ---
CALL LIGHT ON. pt REPORTED "A HEADACHE" DISCUSSED PAIN MANAGEMENT. CALL LIGHT WITHIN REACH.
--- NOTE | 2021-01-30 05:56 | NUR ---
CALL LIGHT ON. pt UP TO VOID AND BACK TO BED. LAYING ON LEFT SIDE. CALL LIGHT WITHIN [facility].
--- NOTE | 2021-01-30 06:46 | NUR ---
CALL LIGHT ON. pt UP TO BSC AND BACK TO BED. REQUESTED SHADE BE SHUT, DONE. CALL LIGHT WITHIN REACH.
--- NOTE | 2021-01-30 08:12 | NUR ---
Spoke with Rn and Aid. Pt sleeping, they request no visit. Will check back tomorrow. Pt on 2l nc.
--- NOTE | 2021-01-30 08:58 | NUR ---
PATIENT USES CALL LIGHT AND NEEDS TO VOID. UP TO BS TO VOID 180 ML URINE. PT MOANING IN DISCOMFORT AND STATES SHE HURTS EVERYWHERE. PT ON 2 L NC. LUNGS HAVE CRACKLES IN BASES. PT STATES SHE DOES HAVE A LITTLE BIT OF SHORTNESS OF BREATH. SP02 IS 94-97% ON 2L NC. BREAKFAST ORDERED FOR PATIENT. NEW IV STARTED IN LEFT AC AND 0800 LABS DRAWN FROM IV START. IV D/C IN LEFT HAND DUE TO NOT FLUSHING-PT TOLERATED WELL. PT ASKING FOR HOT COCOA. PT OVERALL SEEMS LIKE SHE DOENS'T FEEL WELL. WARM BLANKETS PROVIDED AND PRN PAIN MEDICATIONS TO BE GIVEN WHEN AVAILABLE/ELIGIBLE. CONTINUE TO MONITOR CLOSELY.
--- NOTE | 2021-01-30 11:21 | NUR ---
PT UP TO BSC TO VOID AND BACK TO BED. D5 STARTED AT 500 ML/HR FOR A TOTAL OF 1L. LABS TO BE DRAWN AT 1300.
--- NOTE | 2021-01-30 14:59 | NUR ---
PT USES CALL LIGHT AND NEEDS TO VOID. UP TO BSC X1 ASSIST TO VOID 325 ML YELLOW URINE. PT BACK TO BED NOW AND LAYING ON RIGHT SIDE. SODIUM WAS 126 ON THE 1300 LABS. SP02 IS 94% ON 1 L NC. PT TO TRANSFER TO MEDICAL FLOOR.
--- NOTE | 2021-01-30 19:33 | NUR ---
RECEIVED REPORT FROM [facility] RNS. pt RESTING IN BED ON PHONE. GAVE PRN FOR URINARY BURNING. ASSISTED WITH COVERS. MAG INFUSING PER ORDERS. CALL LIGHT WITHIN REACH. WHITEBOARD UPDATED.
--- NOTE | 2021-01-30 20:00 | NUR ---
IV MAG COMPLETED. IV REMDESIVIR STARTED. pt RESTING IN BED WITH EYES CLOSED. CALL LIGHT WITHIN REACH.
--- NOTE | 2021-01-30 21:29 | NUR ---
IN TO DO ASSESSMENT AND MEDICATIONS. pt UP TO BSC, 1PA, VOID, BACK TO BED. pt COMPLAINED OF BEING COLD. PROVIDED WARM BLANKETS. PRN PAIN MEDICATION FOR 2/10 GENERALIZED PAIN. pt HAS A COUGH, NON PRODUCTIVE. LUNGS CLEAR IN THE UPPERS, CRACKLES IN THE BASES. 1L O2 VIA NC. MEDICATIONS GIVEN (SEE MAR). pt RESTING IN BED. CALL LIGHT WITHIN REACH.
--- NOTE | 2021-01-30 23:19 | NUR ---
CALL LIGHT ON. pt UP 1PA TO BSC AND BACK TO BED. TURNED TO LEFT SIDE. CALL LIGHT WITHIN REACH.
--- NOTE | 2021-01-31 01:04 | NUR ---
CALL LIGHT ON. pt UP TO VOID AND HAVE BM. BACK TO BED 1PA, UNSTEADY ON FEET. PROVIDED WARM BLANKETS CALL LIGHT WITHIN REACH.
--- NOTE | 2021-01-31 03:16 | NUR ---
CALL LIGHT ON. pt REQUESTED WATER. PROVIDED. NO FURTHER NEEDS. CALL LIGHT ON AGAIN. pt UP TO BSC 1PA MIXED URINE AND BM. INCONT OF STOOL. CHUX CHANGED. PERICARE DONE. pt MOANED THROUGHOUT, O2 SAT HIGH 80'S, 2L O2 VIA NC. BACK TO BED. CALL LIGHT WITHIN REACH.
--- NOTE | 2021-01-31 05:03 | NUR ---
CALL LIGHT ON pt REPORTED INCONT BM. UP TO BSC 1PA. SMALL BM AND VOID. PERICARE DONE. pt MOANED THROUGHOUT. COMPLAINED OF SIMILAR ABD PAIN BEFORE. PRN PAIN MEDICATION GIVEN (SEE MAR). LABS DRAWN. VITALS RECORDED. BLANKETS PROVIDED. CALL LIGHT WITHIN REACH.
--- NOTE | 2021-01-31 06:59 | NUR ---
ROUNDED ON pt. PAIN IS "BETTER" CALL LIGHT WITHIN REACH.
--- NOTE | 2021-01-31 09:15 | NUR ---
PT ARRIVED FROM CCU. V/S OVERALL WDL, PT DOING WELL ON 2L O2 NC. LOBES ARE CLEAR BUT DIMINISHED. NO NEW OR OTHER CONCERNS WERE NOTED WITH ASSESSMENT.
--- NOTE | 2021-01-31 12:03 | NUR ---
PT IN ROOM. PT OVERALL IS DOING WELL. MAY D/C TODAY. PT REMAINS ON 2L O2 NC. NO NEW CONCENRNS NOTED AT THIS TIME.
--- NOTE | 2021-01-31 12:15 | NUR ---
MED REC COMPLETE
--- NOTE | 2021-01-31 14:00 | NUR ---
Spoke with pt and she states she lives in a small 1 story home with her daughter and two grandsons. She does not use any DME. If she requires 02 on dc she would like to use [facility]. States daughter is a stay at home mom and will be with her. Pt denies financial issues. Plans on dc to home when medically ready. Pt has harsh cough during our phone conversation. Will speak with Dr. Fields to check if this pt is ready for dc.
--- NOTE | 2021-01-31 14:00 | NUR ---
PT IN ROOM AND IS CALLING FREQUENTLY FOR ALL SORTS OF MINUTE THIINGS. NO NEW CONCERNS NOTED.
--- NOTE | 2021-01-31 14:04 | NUR ---
PATIENT UP TO COMMODE WITH STANDBY ASSIST TO VOID AND BM. PATIENT BACK TO BED AND LYING ON LEFT SIDE. 3L O2 VIA NC IS ON.
--- NOTE | 2021-01-31 14:49 | NUR ---
PATIENT CALLED FOR ASSISTANCE TO BR. PATIENT WAS ABLE TO USE BSC WITH LITTLE ASSISTANCE FROM THE CAR PRE COOLER. LIQUID STOOL, THIS CAR PRE COOLER EDUCATED PATIENT ON CLEANING HERSELF FROM FRONT TO BACK AFTER BM. VITALS AND I&OS CHARTED PATIENT HAS A CONTINUAL MOAN/WHINE WHILE SHES AWAKE, STATES IT'S DUE TO HER PAIN. FRESH ICE WATER PROVIDED. CALL LIGHT IN REACH, NO OTHER NEEDS AT THIS TIME
[2021-01-31] MEDS ORDERED: CEPHALEXIN500 M1 PO (15:35)
[2021-01-31] MEDS ORDERED: DEXAMETHASONE6 MG PO (15:35)
--- NOTE | 2021-01-31 16:00 | NUR ---
LOBES HAVE SOME WHEEZING PRESENT. PT DENIES SOB. V/S WDL, URINE OUTPUT WDL, PT DOES STILL HAVE SOME DIARRHEA THOUGH. NO NEW CONCERNS NOTED WITH SECOND ASSESSMENT.
--- NOTE | 2021-01-31 16:00 | NUR ---
Spoke with Dr. Fields following converstation with pt and daughter. Pt stating she is weak and can't go home. Per RT pt destated to 88 during phone conversation and was unable to participate in any activity for an 02 qualifier. I spoke with daughter who staed she did not feel pt is ready for dc as she is not at baseline. Daughter plans on returning her to the ER if she feels there is any issues. Dr. Fields decided pt should remain in the hospital.
--- NOTE | 2021-01-31 19:53 | NUR ---
RECEIVED REPORT FROM DAY SHIFT RN. PATIENT DENIES ANY NEEDS. SPINNING MACHINE TENDER IS IN THE ROOM.
--- NOTE | 2021-01-31 20:30 | NUR ---
ASSESMENT COMPELTED. VITALS TAKEN AND RECORDED. INTAKE AND OUPUT RECORDED. PATIENT REPORTS PAIN IN HER BACK AND STOMACH CRAMPS. PRN MEDICATION GIVEN PER ORDER. PATIENT ASSISTED IN REPOSITIONING. PATIENT MOANS WHILE THIS RN IS IN ROOM. WHEN THIS RN INQUIRED ABOUT MOAINING. PATIENT STATED "I MOAN ALL THE TIME". PATIENT GIVEN SCHEDULED MEDICATIONS GIVEN PER ORDER. PATIENT DENIES ANY SOB AND REMAINS ON 2L VIA NC. PATIENT REFUSED TO DO IS AT THIS TIME. PATIENT EDUCATED ON IMPORTANCE. SHEBA STATED "I CAN'T". IVS FLUSHED AND SL X2. PATIENT DENIES ANY FURTHER NEEDS. CALL LIGHT IN REACH.
--- NOTE | 2021-01-31 21:10 | NUR ---
PATIENT CALLED AND STATED "I AM COLD". PATIENT PROVIDED WITH WARM BLANKET. PATIENT CONTINUES TO MOAN. PATIENT DENIES ANY FURTHER NEEDS. CALL LIGHT IN REACH.
--- NOTE | 2021-01-31 23:04 | NUR ---
PATIENT CALLED AND REQUESTED A WARM BLANKET. PATIENT PROVIDED WITH A WARM BLANKET. NO FURTHER NEEDS. NOTED. CALL LIGHT IN REACH.
--- NOTE | 2021-01-31 23:24 | NUR ---
PATIENT IS RESTING IN BED WITH EYES CLOSED, RR 16. CALL LIGHT IN REACH.
--- NOTE | 2021-02-01 01:16 | NUR ---
PATIENT ASSISTED TO REPOSITION. PATIENT REPORTS PAIN IN HER BACK. PRN TYLENOL GIVEN PER REQUEST. PATIENT DENIES ANY FURTHER NEEDS. CALL LIGHT IN REACH.
--- NOTE | 2021-02-01 05:10 | NUR ---
IN TO GET PT UP TO THE BSC, SBA PIVOT, PT BACK TO BED AND VITALS DONE, NO FURTHER NEEDS AT THIS TIME
--- NOTE | 2021-02-01 05:44 | NUR ---
PATIENTS VITALS TAKEN AND RECORDED. INTAKE AND OUPUT RECORDED. PATIENT REPORTS BACK PAIN AND ABD CRAMPING. PATIENT GIVEN PRN MEDICATION PER ORDER. PATIENTS BLOOD DRAWN AND SENT TO LAB. PATIENT PROVIDED WITH FRESH ICE WATER. PATIENT REMAINS ON 2L VIA ND. PATIENT DENIES ANY SOB. NO FURTHER NEEDS NOTED. CALL LIGHT IN REACH.
--- NOTE | 2021-02-01 07:11 | NUR ---
REPORT RECIEVED FROM ZULEYKA TARANGO. PT RESTING ON BACK, CALLING FREQUENTLY WITH CALL LIGHT. HAS CALLED 4 TIMES DURING REPORT. PT REQUESTS SODA, WATER, TO SEE HER NURSE, AND VARIOUS OTHER ITEMS. ITEMS DELIVERED, FLUIDS HELD AT THIS TIME UNTIL INTAKE CAN BE ASSESSED, WATER ALREADY AT BEDSIDE. CALL LIGHT WITHIN REACH. BED RAILS UP.
--- NOTE | 2021-02-01 08:12 | NUR ---
MORNING ASSESSMENT AND MEDICATION DUE. PT CONTINUES TO HIT CALL LIGHT FREQUENTLY. THIS RN TO ROOM. PT MOANING AND GROANING. WHEN ASKED WHAT IS WRONG AND WHAT SHE NEEDS PT STATES "NOTHING, I DON'T KNOW." THIS RN TO ROOM. CURTAINS OPENED. STAND BY ASSIST UP TO CHAIR. PT ABLE TO STAND. PT STATES SHE FEELS "A LITTLE" WEEK BUT "STRONGER TODAY." PT REPORTS BACK PAIN HAS RESOLVED, NOW REPORTS 3/10 STOMACH PAIN. SEE MAR FOR MEDICATION GIVEN. IVS FLUSHED, WNL, NO S/S OF PHLEBITIS NOTED, ALCOHOL CAPS APPLIED. PT ORIENTED TO ALL BUT DATE. LUNG SOUNDS CLEAR BUT FOR OCCATIONAL WHEEZE IN RIGHT UPPER LOBE. I.S. USE DEMONSTRATED X5 PT REACHES 1250ML. CPOX IN PLACE. O2 SATURATIONS ABOVE 90% ON 2L. PT REPORTS "I FEEL STRONG ENOUGH TO GO HOME." BUT THEN STATES LATER "I'M TOO WEAK TO DO ANYTHING." COMPLAINTS INCONSISTANT. PTS DAUGHTERESTEBAN CALLED, NO ANSWER AT THIS TIME. PTS DAUGHTER JESSE CALLED, NUMBER NOT IN SERVICE. PTS DAUGHTER JESSE CALLED, NO ANSWER AT THIS TIME. PT REMAINS UP TO CHAIR. EATING BREAKFAST. NO ADDITIONAL REQUESTS OR COMPLAINTS. CALL LIGHT WITHIN REACH.
--- NOTE | 2021-02-01 09:17 | NUR ---
THIS RN TO ROOM TO CHECK ON PT. BREAKFAST ARRIVED. PT CONTINUES TO WINE STATING "I NEED MY BREAKFAST, AND I MY VICTOR MANUEL." ITEMS ALREADY IN FRONT OF PT. PT DENIES ADDIITIONAL REQUESTS OR COMPLAINTS STATING SHE HAS EVERYTHING SHE NEEDS. CALL LIGHT WITHIN REACH. PT WEANED TO ROOM AIR. OXYGEN SATURATIONS MAINTAINING ABOVE 90%.
--- NOTE | 2021-02-01 10:00 | NUR ---
Received call from pts daughter Julia stating she wants to transfer pt to [facility] as nurses are being mean and her sister has set this up. Lengthy discussion transfers are usually completed through Doctor to Doctor. Pt could be discharged and then go to the [facility] ER, but I am not sure they would admit her. She states pts is Dr. Sidhu in [facility]. We discussed he is not a hospitalist. She states she will call her sister and find out what the plan is. Received call from Pita pt's other daughter. She has also received a call from her mom stating she is being kicked out of the hospital this morning. Updated, pt has not been seen by Dr. Fields yet. Plan was for pt to work with PT/OT to obtain level of ability. Per daughter Pita, pt lives in a very small home an only takes 5-10 steps to go to the bathroom or kitchen. Sheis not active. She also states sister is not capable of caring for mom as she is an addict. Pita would prefer pt dc to a SNF if she is not at baseline and request no narcotics to be dispensed. 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 She drove to [place] the beginning of January to picking crew supervisor her granddaughter. Informed I will speak with PT/OT today to detemine how pt did with therapy. Pita will call and encourage pt to participate in therapy. Pt unable to tolerate therapy, she will discuss with her going to a SNF on dc.
--- NOTE | 2021-02-01 10:30 | NUR ---
THIS RN TO ROOM TO CHECK ON PT. PT UP TO CHAIR. PT CONTINUES WINING AND MOANING. PT UNABLE TO CLARIFY WHAT IS WRONG, STATES "I NEED MY HOT CHOCOLATE." HOT CHOCOLATE IN PTS HAND. PT TOERLATING ROOM AIR WITH OXYGEN SATURATIONS ABOVE 90%. STAND BY ASSIST WITH FRONT WHEEL WALKER, TO SHOWER. PT PLACED ON 2L O2 BY NC WITH OXGYEN SATURATIONS ABOVE 90%. PT INDEPENDANT IN SHOWER, ABLE TO WASH SELF, AND SHAMPOO ON HER OWN. THIS RN PRESENT FOR STAND BY ASSIST. PT CONTINUES WINING THROUGHOUT SHOWER. OCCUPATIONAL THERAPY TO SHOWER TO OBSERVE AND ASSIST PT WITH REMAINDER OF SHOWER. ABX GIVEN. PT CONTINUES WORKING OCCUPATIONAL THERPAY. PTS DAUGHTER JESSE CALLED AND UPDATED ON PLAN OF CARE. JESSE VERBALIZES UNDERSTANDING AND STATES HER QUESTIONS HAVE BEEN ANSWERED.
--- NOTE | 2021-02-01 11:57 | NUR ---
THIS RN TO ROOM TO CHECK ON PT. PT RESTING ON RIGHT SIDE WITH EYES CLOSED. RESPIRATIONS EVEN AND UNLABORED. OXGYEN SATURATIONS 98% ON 2L O2 BY NC. PT WEANED BACK TO ROOM AIR WITH OXYGEN SATURATIONS MAINTAINING ABOVE 90%. BLOOD SUGAR TAKEN. LUNCH ORDER PLACED. PT DENIES ADDIITONAL REQUESTS OR COMPLAINTS. RESTING PEACEFULLY WITH NO WHINING/MOANING/OR GROANING NOTED. BED RAILS UP. CALL LIGHT WITHIN REACH.
--- NOTE | 2021-02-01 13:15 | NUR ---
LUNCH ARRIVED. STAND BY ASSIST UP TO CHAIR. PT CONTINUES WINING WITH ACTIVITES. O2 SATURATIONS REMAIN ABOVE 90% ON 2L O2 BY NC WITH ACTIVITY. PT DENIES PAIN AND NAUSEA. I.S. USE DEMONSTRATED REACHING 1000ML X5. INSULIN GIVEN. PT DENIES ADDITIONAL REQUESTS OR COMPLAINTS. CALL LIGHT WITHIN REACH.
--- NOTE | 2021-02-01 14:27 | NUR ---
AFTERNOON ASSESSMENT DUE. PT REMAINS UP TO CHAIR. OXGYEN SATURATIONS ABOVE 90% ON 2L O2 BY NC, CURRENTLY 94%. PT ALERT AND OREINTED TO ALL, VERBALIZES UNDERSTANDING OF REASON FOR STAY AT THE HOSPITAL AND PLAN OF CARE. PT DENIES PAIN AND NAUSEA. PT REPORTS IV TO LEFT AC IS PAINFUL, REQUESTS IV BE DC'D. IV DC'D PER PROTOCOL, GAUZE AND TAPE APPLIED. PT CONTINUES MOANING AND WIMPHERING, PT UNABLE TO VERBALIZE WHY SHE IS MOANING. LUNG SOUNDS CLEAR IN UPPER LOBES BUT CRACKES NOTED IN BASES. PT DEMONSTRATES USE OF I.S. REACHING 1000ML X5. PT DENIES PAIN WITH URINATION AT THIS TIME. CHARAN ABDOMINAL PAIN. STAND BY ASSIST BACK TO BED, PT REPORTS SHE WOULD LIKE TO TAKE A NAP THIS AFTERNOON. PT POSITIONED ON LEFT SIDE, SUPPORTED WITH PILLOWS. PT WEANED TO ROOM AIR WHILE RESTING. OXGEYN SATRUATIONS REMAIN ABOVE 90%. NO ADDIITONAL REQUESTS OR COMPLAINTS. CALL LIGHT WITHIN REACH. BED RAILS UP.
--- NOTE | 2021-02-01 15:00 | NUR ---
Spoke with pt and she is resting. Pt has showered and was able to walk in the room. Discussed dc plan and pt wants to go home, but did speak with daughter and states she will go to a SNF if she needs therapy.
--- NOTE | 2021-02-01 15:28 | NUR ---
THIS RN TO ROOM TO CHECK ON PT. PT RESTING ON LEFT SIDE WITH EYES CLOSED, RESPIRATIONS EVEN AND UNLABORED. O2 SATURATIONS DROPING TO 88% ON ROOM AIR WHILE SLEEPING. 2L O2 BY NC PLACED. PT REMAINS ALSEEP. OXGYEN SATURATIONS INCRESE TO 94% ON 2L O2 BY NC. BED RAILS UP. CALL LIGHT WIHTIN REACH.
--- NOTE | 2021-02-01 16:15 | NUR ---
THIS RN TO ROOM TO CHECK ON PT. PT AWAKEN AND WINING IN BED. PT DENIES PAIN AND NAUSEA. PT ENCOURAGED TO GET UP TO CHAIR RATHER THAN LYING IN BED. STAND BY ASSIST UP TO CHAIR. PT REMAINS ON 2L O2 BY NC WITH OXYGEN SATURATIONS ABOVE 90%. PTS LUZTHERJESSE, CALLED WITH UPDATE. JESSE VERBALIZES UNDERSTANDING AND STATES HER QUSTIONS HAVE BEEN ANSWERED. PT DENIES ADDITIONAL REQUESTS OR COMPLAINTS AT THIS TIME. CALL LIGHT WITHIN REACH. UNEMPLOYMENT BENEFITS CLAIMS TAKER TO BEDSIDE FOR BLOOD SUGAR.
--- NOTE | 2021-02-01 17:48 | NUR ---
DINNER DELIVERED TO PT. PT UP TO CHAIR. OXYGEN SATURATIONS ABOVE 90% ON 2L O2 BY NC. PT REPORTS 4/10 STOMACH "BURNING" PAIN, SEE MAR FOR MEDICATION GIVEN. WATER REFILLED. NO ADTIIONAL REQUESTS OR COMPLAINTS. CALL LIGHT WITHIN REACH.
--- NOTE | 2021-02-01 18:42 | NUR ---
PT HERE FOR COVID RELATED PNEUMONIA. PT UP WITH STAND BY ASSIST AND FRONT WHEEL WALKER. PT ABLE TO SHOWER SELF AND PROVIDE SELF CARES WITH STAND BY ASSISTANCE. BLOOD SUGAR CHECKS WITH MEALS, SLIDING SCALE INSULIN GIVEN. PT TOELRATING 60G CARB DIET WITH MODERATE APPITITE. PT TOELRATING 1200ML FLUID RESTRICTION. PT REMAINS ON 2L O2 BY NC WITH ACTIVITIES. CASE MANAGEMENT INVOLVED FOR PLAN OF CARE AND FUTURE CARES. PT CONTINUES TO WHINE FREQUENTLY AND IS UNABLE TO CLARIFY WHAT IS BOTHERING HER. ABX GIVEN. SHOWER THIS SHIFT. UP TO CHAIR FOR ALL MEALS. PT VOIDING QUANTITY SUFFICIENT. PT USES CALL LIGHT AND MAKES NEEDS KNOWN.
--- NOTE | 2021-02-01 18:45 | NUR ---
THIS RN TO ROOM TO CHECK ON PT PT REMAINS UP TO CHAIR. OXYGEN SATURATIONS 98% ON 2L O2 BY NC. PT DENIES PAIN AND NAUSEA. PT UPDATED ON PLAN OF CARE. PT DENIES ADDITIONAL REQUESTS OR COMPLAINTS AT THIS TIME. CALL LIGHT WITHIN REACH.
--- NOTE | 2021-02-01 19:55 | NUR ---
IN TO ASSIST PT BACK FORM THE TOILET, PT BACK TO BED, VITALS DONE, WARM BLANKET AND ICE WATER PROVIDED, PT ASKING FOR PM MEDS AND RN WILL BE IN THE RM SHORTLY, NO FURTHER NEEDS AT THIS TIME
--- NOTE | 2021-02-01 20:41 | NUR ---
was in chair earlier, up to br, voided, back to bed, hob elevated. O2 2LNC, lungs w exp wheezibng and ins crackles at bases. harsh moist cough present. medicate with Azo per urinary discomfort, tylenol and Bentyl per h/a and abd from coughing, repositions self in bed,. hob elevted to comofrt. moaning and groaning, stated "I dont know why" when asked. proning positioning to l side, and explained, ujnklnown degree of assimilation. childlike behavior, aware of self and place but not date or situation. cooperative and redirectable. bed alarm on. tele cpox #[address] coughing
--- NOTE | 2021-02-01 21:20 | NUR ---
PT UP TO THE TOILET, BED ALARM SET OFF, PT BACK TO BED, NO FURTHER NEEDS AT THIS TIME
--- NOTE | 2021-02-01 21:45 | NUR ---
IN TO ASSIST PT WITH PHONECALL FROM DAUGHTER, NO FURTHER NEEDS AT THIS TIME
--- NOTE | 2021-02-01 22:40 | NUR ---
PT BED ALARM SET OFF, IN TO ASSIST PT TO THE TOILET, BM AND VOID, PT BACK TO BED, NO FURTHER NEEDS AT THIS TIME
--- NOTE | 2021-02-01 23:57 | NUR ---
AWAKE, REPOSITIONS SELF IN BED, O2 2LNC, BED ALARM, TOLERATING FLUIDS RESTRICTION
--- NOTE | 2021-02-02 00:13 | NUR ---
PT UP TO BR, VOIDED, HAD SMEAR OF SOFT BM, DID OWN CARE, BACK TO BED, REPOSITIONS SELF, HAD TAKES O2 OFF, BACK ON 2LNC, NO SOB NOTED, TELECPOX IN PLACE, 99%, TACHY AT TIMES WITH EXERTION. NO C/O PAIN
--- NOTE | 2021-02-02 01:33 | NUR ---
bed alarm going off pt up to br sba/fww, voided, back to bed, coop with assessment O2 2LNC, lungs dim at base, no sob with exertion. on 1200 cc fluid restrition, oral sponges given. tolerating restriction fair. continues to require and ask for multiple times about watrer intake. explained to pt. semi receptive, back to bed, bed alarm on
--- NOTE | 2021-02-02 02:38 | NUR ---
PT CALLED, REQUESTING MORE WATER, EXPLAINED TO PT EARLIER THAT SHE HAS NO MORE LEFT ON HER 1200ML RESTRICTON ORDER, PREVOUISLY EXPLAINED TO PT BY RN WELL, RN WILL BE IN AT 033
--- NOTE | 2021-02-02 03:05 | NUR ---
C/O BUTCHER 09/16, MEDICATE WITH TYLENOL, CONTINUES TO BE UPSET OVER FLUID RESTRICTION. TOOK MEDS WITH SIPS OF WATER
--- NOTE | 2021-02-02 06:29 | NUR ---
up to br, voided and had small soft bm. was incoantinent of urine and bm in attends, does own care. back to bed, O2 in place telecpox place. pt reminded of fluid restriction, stated awareness. hob elevated for comfort. Bed alarm on
--- NOTE | 2021-02-02 07:54 | NUR ---
Shift report received from ZULEYKA Quesada, pt resting safely in bed w/ call light in reach. Pt states she is hungry, pt reassured that breakfast will be delivered soon.
--- NOTE | 2021-02-02 10:00 | NUR ---
PT TRANSFERED FROM BED TO CHAIR VIA SBA W/FWW. PT LAYING ON LEFT SIDE, O2 SATS 97% ON 2L VIA NC, PT DENIES SOB. MORNING ASSESMENT COMPLETED AND SCHEDULED MEDS GIVEN PER PROVIDER ORDERS. CALL [facility] IN REACH PT GIVEN ICE WATER UPON REQUEST.
--- NOTE | 2021-02-02 12:00 | NUR ---
PT SITTING UP IN CHAIR FOR LUNCH, BLOOD GLUCOSE IN RANGE, NO SLIDING SCALE INSULIN NEEDED. PT DENIES PAIN OR SOB, O2 SATS 95% ON 2L VIA NC
--- NOTE | 2021-02-02 14:00 | NUR ---
PT RESTING IN BED ON LEFT SIDE W/ CALL LIGHT IN REACH. PT DENIES SOB, O2 SATS 97% ON 2L VIA NC.
--- NOTE | 2021-02-02 16:30 | NUR ---
PT SITTING UP IN CHAIR W/ CALL LIGHT IN REACH. CM IN ROOM TALKING W/ PT, NO NEEDS AT THIS TIME
--- NOTE | 2021-02-02 16:33 | NUR ---
TRIED TO TALK WITH PATIENT SEVERAL TIMES THIS MORNING AND COULD NOT CONNECT DUE TO SLEEPING, STAFF IN. FINALLY GOT PATIENT ON HER CELL PHONE AROUND 1PM. DISCUSSED THAT HER DAUGHTER JESSE, DR PEARCE AND THE THERAPISTS ALL FEEL SHE NEEDS REHAB STAY BEFORE RETURNING HOME. DISCUSSED WEAKNESS IS OFTEN WITH COVID AND ILLNESS. PATIENT STATES SHE DOES NOT USUALLY NEED HELP AT HOME. STATES SHE IS ABLE TO TOILET SELF, SHOWER, FIX MEALS. SHE AGREES SHE IS TOO WEAK TO DO THIS. PATIENT IS TEARFUL AND IS VERY WHINNY WITH ALL SPEAKING. SHE IS AGREEABLE TO GO TO [facility] FOR A STAY BEFORE HOME. DISCUSSED THAT WE DO NOT HAVE LOCAL FACILITIES TAKING COVID PATIENTS. THAT WE WOULD NEED TO CALL FOR POSSIBLITIES OUT OF TOWN. SHE IS AGREEABLE. DOES NOT KNOW HOW SHE WOULD GET THERE. DOESN'T THINK HER KIDS CAN TAKE HER. SHE THEN KEPT SAYING SHE NEEDED TO GO TO THE BATHROOM. REMINDED HER TO PUSH HER CALL L[facility] [place] IF SHE NEEDS HELP TO THE BATHROOM. SHE WAS ABLE TO PUSH IT AND TELL THEM WHAT SHE WANTED WHILE ON PHONE WITH ME. ENCOURAGED HER TO WORK WITH THERAPY THIS WEEKEND AND WE WILL SEE WHERE SHE IS FRIDAY ON HER NEEDS. CALLED ONLY FACILITY THAT WE KNOW WHO TAKES COVID IN THE [facility] IN [place]. SPOKE WITH LUCY IN ADMITING. SHE STATES THEY ARE NOW GOING [facility]ROUGH [facility] FOR [facility]. SHE STATES SHE WILL SEND A FORM TO US, IT WOULD NEED TO BE FILLED OUT AND SENT TO THE [facility]. GAVE HER OUR FAX NUMBER. RECEIVED FORM AROUND [phone]. UPDATED DR PEARCE AND STAFF.
--- NOTE | 2021-02-02 17:28 | NUR ---
RECEIVED AGING & PEOPLE WITH DISABILITIES COVID-19 [facility] ADMISSIONS REFERRAL FORM VIA FAX FROM [facility]. FILLED OUT AND EMAILED TO [email or web address] AL[facility] WITH COVID TEST/FACESHEET/ALL PROGRESS NOTES/CURRENT MAR.
--- NOTE | 2021-02-02 19:00 | NUR ---
PT UP IN CHAIR FOR MEALS AND RESTED IN BED LYING ON LEFT SIDE INBETWEEN. O2 SATS 95-97% ON 2L VIA NC, PT DENIES SOB W/ ACTIVITY, SBA W/FWW TO BATHROOM. PT HAS POOR APPETITE. PT FREQUENTLY ASKED FOR MORE ORAL FLUIDS AND WAS RE-EDUCATED ON FLUID RESTRICTION. SUFFICIENT URINE OUTPUT.
--- NOTE | 2021-02-02 20:37 | NUR ---
O2 weaned down from 2 to 1L, sats were 94% in bed. up to br, voided, had med size soft bm, back to bed, sats 89.90% on return, resp 24. O2 up to 1.5L, sats 90-95% on 1.5L, denies sobon return, lungs with RL fice exp crackles. clear L. abd soft. 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 pt more cooperative. aware of fluid restriction and stated "I know this is all the water i can have til 0600am", mentality better, still moanaing and groning but much more easily redirectable, call light at bedside, bed alarm on. medicated with bentyl and tylenol per h/a and back opain, azo per abd urinary pain and melatonin on requests per insomnis
--- NOTE | 2021-02-02 23:42 | NUR ---
up to br, voided, was incontinent of urine, clean attend given. back to bed. tolerated well. O2 downto 1L NC, sats 94% on return Bed alarm on, repositions self tachy at 120
--- NOTE | 2021-02-03 01:15 | NUR ---
O2 1LNC, sats 96%, up to br, voided, plus was incontinent of urine and had small soft liquid bm, does own bull care. back to bed, no raise in resp at this time, tolerated well, will be medicated with tylenol and bentyl per back, abd pain. fair tolerance to fluid restriction.bed alarm on SBA/FWW. tele cpox #[address]
--- NOTE | 2021-02-03 05:07 | NUR ---
Pt continues on airborne isolation precautions. has been weaned off from 2L O2NC to 1L nc, tele/cpox #[address], sats at 97%, pulse irregular ranging from 44-131 non sustained. denies CP, resp had stayed stable when up to br, pulse goes up with exertion and when repositioning in bed. Lungs with fine crackles t/o. tolerating diet and well. Has been on 1200 fluid restriction and tolerating poorly. Requiring many cues and explanations on it, semi compliant. Incontinent of liquid soft bm and urine several times, attends changed by self with minimum of assist. red bull, lotion applied. SL patent. call light at hands reach, Bed alarm on Continues to have regressive behavior for her age but much improved, semi compliant and repeats back partially information being give. redirectable
--- NOTE | 2021-02-03 06:45 | NUR ---
Up to br, voided, back to bed, tolerated well, tachychardic when up, no change in resp noted, sats stayed same at 94-95%, denies sob. Aware of fluid restriction,
--- NOTE | 2021-02-03 07:47 | NUR ---
Shift report received from ZULEYKA Quesada. Pt resting in bed safely w/ call light in reach, eyes closed, RR even and unlabored.
--- NOTE | 2021-02-03 08:53 | NUR ---
PT SITTING UP IN CHAIR EATING BREAKFAST W/ CALL LIGHT IN REACH. MORNING ASSEMENT COMPLETED AND SCHEDULED MEDS GIVEN PER PROVIDER ORDERS. NO SLIDING SCALE INSULIN NEEDED, CBG IN RANGE. PT DENIES SOB, O2 SATS 98% ON 1L VIA NC. PT DENIES ANY NEEDS AT THIS TIME. LUNGS SOUNDS HAVE IMPORVED STILL SOME FINE CRACKLES IN RLL.
--- NOTE | 2021-02-03 12:59 | NUR ---
THIS MORNING WAITED UNTIL THEY DELIVERED PATIENT FOOD GOT GOWNED UP AND WENT IN DID HER BLOOD SUGAR. THAN GOT HER UP OUT OF BED SHE WALKED IN THE BATHROOM WITH HER WALKER IS JUST STOOD BY IN CASE SHE NEEDED ANY HELP. THAN SHE WASHED HER HANDS AND WE WALKED BACK TO HER CHAIR SHE SET UP FOR BREAKFAST.
--- NOTE | 2021-02-03 14:00 | NUR ---
Pt sitting up in chair, eating lunch. Pt denies SOB, O2 sats 93% on 1L.
--- NOTE | 2021-02-03 19:19 | NUR ---
eyes closed, no resp distress. call light at bedside. Cont on airborne isolation precautions
--- NOTE | 2021-02-03 21:12 | NUR ---
IN TO TAKE BLOOD SUGAR. pt RESTING IN BED. REPORTED SHE HAD BEEN UP TO THE BATHROOM TO DO PM CARES AND CLOSED THE WINDOW SHADE, INDEPENDENT IN ROOM. BLOOD SUGAR CHECKED, INSULIN ADMINISTERED. PRIMARY RN IN ROOM.
--- NOTE | 2021-02-03 22:53 | NUR ---
PATIENT CALLED NURSES STATION REQUESTING ASSISTANCE TO BR. NURSE SAID PATIENT HAD BEEN INDEPENDENT TO AND FROM BATHROOM ALL DAY AND TO LET HER KNOW SHE COULD USE THE BATHROOM. NO SUPERVISION NECESSARY.
--- NOTE | 2021-02-04 01:01 | NUR ---
PT RESTING, O2 1L NC, TELECPOX #[address] SATS 95%, PULSE HAS STAYED STABLE 60-76, RESP EVEN AND UNLABORED WHEN UP TO BR, DENIES SOB, MORE INDEPENDENT IN ROOM, MUCH IMPROVED GAIT AND STAMINE, MENTALITY MUCH IMPROVED TOO, MORE APPROPRIATE
--- NOTE | 2021-02-04 04:54 | NUR ---
WEANED OFF O2 AT THIS TIME, HER REQUEST, ON ROOM AIR STAYING STABLE AT 91-95% ROOM AIR, DID NOT WENT DOWN WITH TURNING/REPOSITIONING OR TALKING, NO SOB PULSE STABLE AT 60'S. COOPERATIVE, MUCH IMPROVED MENTALITY, ALERT AND ORIENTED TO PLACE, SITUATION AND OFF DATE BY 1-2 DAYS. STATED SHE IS BETTER AND WANT TO GO TO HER HOME NOT A GROUP HOME. STATED THAT WALKER WOULD BE HARD SHE HAS 10 STEPS TO GO UP TO HER HOUSE.
--- NOTE | 2021-02-04 05:20 | NUR ---
Pt on room air at her requests, has been toleratting well sats WNL, p has stayed steady in mid 60-80's. no sob, no increaed on resp or pulse with exertion.Lungs dim with faint crackles, has slept off and on this shift. received Tylenol per c/o h/a and AZO per c/o stomach pain, Melatoning per insomnia, partially effective. turns and repositions self in bed, has been independent anmol br, voiding qs, fww. much improved gait and mentality, appropriate, alert and oriented. no moaning and groaning, sl patent.
--- NOTE | 2021-02-04 06:53 | NUR ---
pt on room air, desatted to 86-88% on room air. placed back on 1L NC
--- NOTE | 2021-02-04 07:24 | NUR ---
Shift report received from ZULEYKA Quesada. Pt resting in bed safely w/ call light in reach and eyes closed, RR even and unlabored, O2 sats 95% on 1L via NC.
--- NOTE | 2021-02-04 09:03 | NUR ---
Pt sitting up in chair eating breakfast, trialed on RA but destats to 87-88%. Pt's O2 stats 95% on 1L via NC. Morning assesment completed and scheduled meds given except for sliding scale insulin as CBG was in range. Pt denies SOB or any other needs at this time.
[2021-02-04] MEDS ORDERED: DEXAMETHASONE6 MG PO (10:52)
[2021-02-04] MEDS ORDERED: CIPROFLOXACIN500 MG PO (10:52)
--- NOTE | 2021-02-04 19:43 | NUR ---
FOR LAST THREE DAYS WE HAD A ROUTINE GOING I WOULD GO IN AND TAKE HER FOOD DO THE BLOOD SUGAR CHECKS THAN SHE WOULD GET UP OUT OF BED SHE WOULD USE HER WALKER TO WALK TO THE BATHROOM. THAN AFTER SHE WAS FINISHED SHE WOULD WASH HER HANDS. AND WALK TO HER CHAIR. PUT UP HER FEET AND SHE WOULD EAT HER BREAKFAST. I WAS RIGHT NEXT TO HER AT ALL TIMES.
== END 2021-02-04 12:55 | disposition home health service (06) | DRG 177 ==
LOC: ED 18:21 → CCU 20:47 → MS 01-31 09:15
PROVIDERS: ADMIT Internal Medicine; ATTEND Internal Medicine
PROC: 3E0333Z Introduction of Anti-inflammatory into Peripheral Vein, Percutaneous Approach (ICD-10-PCS; principal; 2021-01-27)
PROC: XW033E5 Introduction of Remdesivir Anti-infective into Peripheral Vein, Percutaneous Approach, New Technology Group 5 (ICD-10-PCS; 2021-01-27)
PROC: 8E0ZXY6 Isolation (ICD-10-PCS; 2021-01-27)
DX: U07.1 COVID-19 (principal); J12.82 Pneumonia due to coronavirus disease 2019; J96.01 Acute respiratory failure with hypoxia; G93.41 Metabolic encephalopathy; N39.0 Urinary tract infection, site not specified; E87.1 Hypo-osmolality and hyponatremia; E87.6 Hypokalemia; E83.42 Hypomagnesemia; E83.51 Hypocalcemia; E11.9 Type 2 diabetes mellitus without complications; M54.9 Dorsalgia, unspecified; I10 Essential (primary) hypertension; E03.9 Hypothyroidism, unspecified; G89.4 Chronic pain syndrome; E78.5 Hyperlipidemia, unspecified; M19.90 Unspecified osteoarthritis, unspecified site; Z87.891 Personal history of nicotine dependence; Z98.890 Other specified postprocedural states; Z98.51 Tubal ligation status; Z98.84 Bariatric surgery status; Z88.5 Allergy status to narcotic agent; Z79.899 Other long term (current) drug therapy; Z79.84 Long term (current) use of oral hypoglycemic drugs
CPT/HCPCS: 36600; 71045; 80048; 80053; 80076; 81001; 82803; 83735; 84550; 85007; 85025; 87088; 93005; 93010; 94760; 94761; 96374; 97110; 97116; 97162; 97165; 97535; 99285-25; A9270; J0696; J1100; J1650; J1815; J2597; J3475; J3480; J7050; J7070; J7131

== ENCOUNTER 2021-02-04 15:03 | Inpatient (IN) | payer MEDICARE, OTHER ==
[~2021-02-04] VITALS: Ht 162.6 cm; Wt 104.8 kg
[~2021-02-04 15:03] MED LIST changes: +CEPHALEXIN500 M1 PO; +CIPROFLOXACIN500 MG PO; +DEXAMETHASONE6 MG PO; +HYDROCODON-ACE1 EA10 PO; +LOSARTAN-HCTZ1 EAC2 PO; +SIMVASTATIN10 MG PO
--- OUTSIDE RECORDS SUMMARY | 2021-02-04 15:06 | XMS ---
PreManage Notification: JUAN LAZO Security Rivet Catcher Events 1 event(s) in the past 18 months Most recent security events: Elopement at [facility] 11/26/2020 18:34 - Other Details: PATIENT LWBS. CRITERIA MET - PDMP - [facility] - 2 Visits in 30 Days - 6 ED Visits in 6 Months CARE PROVIDERS CHRISTINE BALDWIN [facility] 01/22/2021-Current PHONE: [phone] NICOLASA REYES Internal Medicine: Pulmonary Disease 12/21/2018-Current PHONE: Unknown Tavo has no Care Guidelines for this patient. Care History Medical/Surgical 12/21/2018 [facility] - Patient is currently established with [facility]. If patient is seen in the ED during business hours. Please contact CHWs at [facility]. Care Recommendation: This patient has had 5 [...] providing care. EElena VISIT COUNT (12 MO.) 7 [facility] TOTAL 7 NOTE: Visits indicate total known visits. 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 - Type 2 diabetes mellitus without complications - Allergy status to narcotic agent - Diarrhea, unspecified - Other detention (current) drug therapy - COVID-19 01/23/2021 19:51 [facility] [place] TYPE: Emergency COMPLAINT: - FLU SYMPTOMS DIAGNOSES: - Fever, unspecified - Pure hypercholesterolemia, unspecified - Urinary tract infection, site not specified - Essential (primary) hypertension - detention (current) use of oral hypoglycemic drugs - Type 2 diabetes mellitus without complications - Hypothyroidism, unspecified - Other detention (current) drug therapy - COVID-19 - Allergy status to narcotic agent 01/22/2021 20:10 [facility] [place] TYPE: Emergency COMPLAINT: - WEAKNESS, BODY ACHES DIAGNOSES: - 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 - Hypothyroidism, unspecified - Unspecified conjunctivitis - Allergy status to narcotic agent - Essential (primary) hypertension - Headache, unspecified - Pure hypercholesterolemia, unspecified - detention (current) use of oral hypoglycemic drugs - COVID-19 - Type 2 diabetes mellitus without complications 01/19/2021 23:22 [facility] [place] TYPE: Emergency COMPLAINT: - COLD SYMPTOMS DIAGNOSES: - COVID-19 - Pure hypercholesterolemia, unspecified - Allergy status to narcotic agent - Headache, unspecified - detention (current) use of oral hypoglycemic drugs - Type 2 diabetes mellitus without complications - Other detention (current) drug therapy - Hypothyroidism, unspecified - Essential (primary) hypertension 11/26/2020 18:34 [facility] TYPE: Emergency COMPLAINT: - POST OP BRUISING INPATIENT VISIT TRACKING (12 MO.) 01/27/2021 20:47 [facility] TYPE: Medical Surgical COMPLAINT: - HYPONATREMIA/COVID PNA [email or web address]
--- NOTE | 2021-02-04 22:39 | NUR ---
02/04/212238 Leighann Myers 2220 PATIENT ARRIVES TO CCU ON VENT. REPORT TO VALENTINE GARDINER, NO PACU PHASE.
--- NOTE | 2021-02-04 23:00 | NUR ---
pt ARRIVED TO ROOM AT 2222. MAXIMUS GUTIÉRREZ AND RADHA RN IN ROOM. XRAY DONE FOR INTUBATION AND CENTRAL LINE. DR BATISTA REVIEWED XRAY AT BEDSIDE, OKAY TO USE CENTRAL LINE. JJ STROUD IN ROOM TO SET UP VENT. pt HAS 7.5 MM ET TUBE 22 AT LIP. pt HAS LAP SITES X4, TWO MIDLINE LAP SITES VISUALIZED, CDI. RIGHT UPPER QUANDRANT LAP SITES COVERED WITH GAUZE AND SOBIA DRAIN, DRESSING CDI. SS DRAINAGE IN SOBIA DRAIN. pt PLACED ON PROPOFOL GTT AT 10MCG/KG/HR. VENT SETTINGS Fi02 OF 80, VT OF 500, SET RESPIRATION RATE OF 12, PEEP OF 5. pt RESTRAINED PER PROTOCOL. DR GRIMES IN ROOM TO DO ASSESSMENT.
--- NOTE | 2021-02-04 23:15 | NUR ---
ROUNDED ON pt. CPOT OF 5, PRN PAIN MEDICATION GIVEN (SEE MAR). STARTED IVF PER ORDERS. pt RESTING IN BED. SOFT RESTRAINTS ON WRISTS PER PROTOCOL. HOB 30 DEGREES. CURTAIN OPEN TO NURSES STATION.
--- NOTE | 2021-02-04 23:28 | NUR ---
pt SATS 99%, Fi02 TITRATED TO 65%.
--- NOTE | 2021-02-04 23:46 | NUR ---
TITRATED Fi02 TO 60%
--- NOTE | 2021-02-05 00:34 | NUR ---
IN TO DO CARES. pt WOKE AND STARTED COUGHING, TEARS FROM EYES. SIRENA RN IN TO ASSIST. PRN PAIN MEDICATION GIVEN (SEE MAR). PROPOFOL GTT INCREASED TO MAINTAIN RASS GOAL OF -3. pt RESPONDED TO TREATMENT. PROPOFOL GTT TITRATED TO 20MCG/KG/HR. RASS -3. DUMONT EMPTIED. RESTRAINTS RELEASED, ROM, REAPPLIED. CURTAIN OPEN TO NURSES STATION. Fi02 OF 50% SATS MID TO HIGH 90'S.
--- NOTE | 2021-02-05 01:38 | NUR ---
PROPOFOL TITRATED AT THIS TIME BASED ON BLOOD PRESSURE TO 15MCG. ALSO PT TITRATED TO 45% FIO2, OXYGEN SATURTION AT 99%.
--- NOTE | 2021-02-05 04:35 | NUR ---
PROPOFOL TITRATED TO 10MCG/HR AT THIS TIME BASED ON B/P. RASS -3.
--- NOTE | 2021-02-05 06:30 | NUR ---
BLOOD PRESSURE LOW, TITRATED PROPOFOL TO 5MCG/KG/MIN
--- NOTE | 2021-02-05 06:46 | NUR ---
NOTIFIED DR BATISTA OF LOW BLOOD PRESSURES. DR BATISTA ORDERED IV PAIN MEDS. ORDER ENTERED.
--- NOTE | 2021-02-05 07:28 | NUR ---
CHEST XRAY DONE. pt RASS SCORE +1 AT THAT TIME, CHEWING ON ET TUBE, PULLING ON RESTRAINTS. INCREASED PROPOFOL TO 10MCG/KG/MIN FOR A FEW MINUTES UNTIL pt SETTLED, GTT TITRATED TO 5MCG/KG/MIN. pt RESTING RASS -2 AT THIS TIME.
--- NOTE | 2021-02-05 08:46 | NUR ---
PROPOFOL TURNED OFF AT 0800. INFUSION WAS GOING AT 5 MCG/KG/MIN PRIOR TO BEING TURNED OFF.
--- NOTE | 2021-02-05 09:00 | NUR ---
both nares swabbed for covid-19 without complication. smaple taken to lab.
--- NOTE | 2021-02-05 09:29 | NUR ---
IN ROOM TO GIVE MEDS. RT IN ROOM AND PLACES PATIENT ON CPAP TRIAL AT 0905. PT AWAKE, SITTING UP, STRONG ENOUGH TO LIFT HER HEAD OFF THE BED, AND TOLERATING CPAP TRIAL WELL THUS FAR. IV TYLENOL GIVEN PER ORDER. PT HAS BEEN OFF PROPOFOL SINCE 0800. PT ABLE TO FOLLOW INSTRUCTIONS AND IS STAYING RELATIVELY CALM, BUT STILL APPEARS SOMEWHAT LETHARGIC/MEDICATED. PT BOOSTED IN BED X2 PERSON ASSIST. DUMONT DRAINING CONCENTRATED URINE. IVF CONTINUE AT 85 ML/HR.
--- NOTE | 2021-02-05 09:57 | NUR ---
DR. BATISTA AND DR. GRIMES UPDATED ON WEANING TRIAL. OKAY TO GO AHEAD AND EXTUBATE PATIENT. RT IN ROOM.
--- NOTE | 2021-02-05 10:14 | NUR ---
PATIENT EXTUBATED AT 1010 AND IS NOW ON 4 L NC. SP02 IS 94%. PT SHOWS NO SIGN OF STRIDOR OR DIFFICULTY BREAHTING. PT STILL SEEMS A LITTLE GROGGY AND WILL CONTINUE TO RE-ORIENT NEEDED. PT DENIES PAIN.
--- NOTE | 2021-02-05 11:04 | NUR ---
PATIENT SITTING UP IN BED AND DOING WELL S/P EXTUBATION. PT'S COVID TEST REMAINS POSITIVE AT THIS TIME. PT IS ABLE TO TALK CLEARLY AND IS ORIENTED TO PLACE AND SITUATION. PT DENIES FURTHER NEEDS. CONTINUE TO MONITOR.
--- NOTE | 2021-02-05 12:23 | NUR ---
2PA TO ASSIST PATIENT FROM BED TO CHAIR. PATIENT THE SHORT DISTANCE WELL, NEEDING A FEW CUES. BATH PACK USED TO WASH PATIENT AND LINENS/GOWN CHANGED. NO OTHER NEEDS AT THIS TIME
--- NOTE | 2021-02-05 13:47 | NUR ---
PATIENT SITTING UP IN CHAIR, NC IN PLACE. VITALS AND I&OS CHARTED. HANSA DRAINED. 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 CALL LIGHT IN REACH, NO OTHER NEEDS AT THIS TIME
--- NOTE | 2021-02-05 15:25 | NUR ---
PATIENT RESTING IN CHAIR, 2LNC AND SPO2 MONITOR IN PLACE. DUMONT EMPTIED, POOR OUTPUT, RN NOTIFIED. VITALS CHARTED. CALL LIGHT IN REACH
--- NOTE | 2021-02-05 15:58 | NUR ---
PATIENT WAS DISCHARGED AND RETURNED IN UNDER 24 HOURS THIS WEEKEND WITH NEW DIAGNOSIS AND SURGICAL NEED. PATIENT DID GO HOME WITH OXYGEN FROM [place] ACCORDING TO STAFF WHO WERE HERE ON WEEKEND. PATIENT WAS EXTUBATED FROM [facility] THIS MORNING. WAS UP IN CHAIR WHEN BRIEFLY SPOKE WITH HER AT THE DOOR. SHE IS MEDICATED AND DROWSY. PLANS TO RETURN HOME AGAIN AT DISCHARGE. CM WILL CONTINUE TO FOLLOW.
--- NOTE | 2021-02-05 17:05 | NUR ---
CBG [address] BATISTA BACK IN TO SEE PATIENT. ORDERS REC'D FOR CHANGING IVF TO LR INSTEAD OF D5 LR. DIET TO BE ADVANCED TO 60 GM CONS CARB. PT REMAINS IN GOOD SPIRITS, DENIES PAIN. PT ORIENTED TO PLACE, EVENT, TIME, BUT STILL SAYS SOME THINGS AT TIMES THAT DO NOT MAKE 100% COMPLETE SENSE. CONTINUE TO MONITOR. DINNER ORDERED FOR PATIENT. HANSA DRAINING MORE SANGINOUS COLORED DRAINAGE AT THIS TIME. URINE OUTPUT REMAINS LOW BUT DR. BATISTA AWARE AND NOT WANTING TO BOLUS PATIENT ANY FURTHER AT THIS TIME. CONTINUE TO MONITOR.
--- NOTE | 2021-02-05 17:50 | NUR ---
PATIENT HELPED TO STAND NEXT TO CHAIR AND REPOSITION SELF FOR DINNER. PATIENT ABLE TO DO THIS WITH 1 PERSON ASSIST. PT DENIES PAIN, BUT DOES NOTICE MORE HER INCISIONS MORE WHEN SHE STIMULATES HER ABDOMEN TO STAND. PT NOW EATING DINNER IN CHAIR, AND THEN WILL LIKELY GO BACK TO BED. IVF SWITCHED TO LR. CALL LIGHT WITH IN REACH.
--- NOTE | 2021-02-05 18:29 | NUR ---
PATIENT HELPED BACK TO BED X1 PERSON ASSIST. PT STATES HER ABDOMEN IS STARTING TO HURT AGAIN, AND RATES IT A 7/10. MORE SANGINOUS DRAINAGE NOTED EARLIER IN HANSA ON RIGHT SIDE OF ABDOMEN, AND JUST NOW SOME OF FLUID IN TUBING SEEMED MORE BILE-LIKE. 40 ML TOTAL EMPTIED AT THIS TIME, AND WAS EMPTIED 2 OTHER TIMES TODAY, BUT THE COLOR SEEMED DIFFERENT THIS TIME. DR. BATISTA TO BE NOTIFIED. PT WAS ABLE TO EAT SOME FOOD, BUT STATES THE PAIN DID INCREASE AFTER SHE ATE. IVF ARE GOING AT 100 ML/HR. SCDs ON. CALL LIGHT WITHIN REACH. URINE OUTPUT REMAINS LOW BUT HAS INCREASED SINCE EARLIER TODAY.
--- NOTE | 2021-02-05 19:05 | NUR ---
DR. BATISTA CALLED AND UPDATED ON PT'S DARKER GREEN BILE-LIKE OUTPUT THAT IS BEING NOTICED IN PATIENT'S HANSA DRAIN. SP02 IS 94% ON 1 L NC. NO FURTHER ORDERS AT THIS TIME.
--- NOTE | 2021-02-05 19:30 | NUR ---
RECEIVED REPORT FROM [facility]. pt RESTING IN BED WITH EYES CLOSED, RESPIRATIONS REGULAR AND UNLABORED. CALL LIGHT WITHIN REACH.
--- NOTE | 2021-02-05 20:00 | NUR ---
IN TO DO ASSESSMENT. LOW URINE OUTPUT RECORDED, DRAIN IN RIGHT UPPER QUADRANT HAS BROWN DRAINAGE MENTIONED IN REPORT. BOWEL TONES ARE HYPOACTIVE. pt WOKE TO VOICE, ALERT AND ORIENTED. DENIES PAIN AT THIS TIME. IV MEDICATION GIVEN PER ORDER. CALL LIGHT WITHIN REACH.
--- NOTE | 2021-02-05 21:30 | NUR ---
IN TO GIVE NIGHTLY MEDICATIONS. pt TALKED CONSTANTLY, DOES NOT REMEMBER MUCH FROM HER PRIOR HOSPITAL VISIT BUT IS ABLE TO TELL THE STORY ABOUT GOING HOME, HAVING PAIN AND COMING RIGHT BACK. pt TALKED ABOUT HER CAREER AND THE KNEE SURGERY SHE HAD IN NOVEMBER. pt TOOK MULTIPLE PHONE CALLS FROM HER DAUGHTERS. BRUISES NOTED ON ABD, THIGHS, AND ARMS FROM LAB DRAWS BLOOD THINNER AND IV STARTS. MEDICATIONS GIVEN (SEE MAR). pt DENIES PAIN. CALL LIGHT WITHIN REACH. PROVIDED WITH JELLO AND ICE WATER.
--- NOTE | 2021-02-05 22:08 | NUR ---
NEW RHYTHM NOTED, pt HR 140'S, AFIB RHYTHM. DR GRIMES IN DEPARTMENT, UPDATED.
--- NOTE | 2021-02-05 22:17 | NUR ---
UPDATED DR BATISTA ON CHANGE IN RHYTHM AND OUTPUT FROM SOBIA DRAIN. LYNNE REQUESTED DR GRIMES HANDLE HEART RATE. NO NEW ORDERS AT THIS TIME.
--- NOTE | 2021-02-05 22:22 | NUR ---
GAVE 10MG DILTIZEM PUSH PER ORDERS. DR GRIMES PRESENT.
--- NOTE | 2021-02-05 22:40 | NUR ---
DILT GTT STARTED AT 5 PER ORDERS. CHEST XRAY COMPLETED. DR GRIMES REVIEWED AT BEDSIDE. EKG COMPLETED, DR GRIMES REVIEWED. CENTRAL LINE OKAY TO USE PER DR GRIMES, GTT, IVF, AND ANTIBIOTIC INFUSING PER ORDERS. THIS RN REMAINS IN ROOM. pt DENIES CHEST PAIN, PALPATATION OR ANY OTHER SIGNS OR SYMPTOMS. pt ALERT AND ORIENTED, CONTSTANTLY TALKING. DID REPORT DISCOMFORT WHERE THE SOBIA DRAIN IS LOCATED AND ITCHING UNDER SCDS.
--- NOTE | 2021-02-05 23:33 | NUR ---
HR REMAINS OVER 100, MAP ABOVE 65, DILT GTT TITRATED TO 7.5.
--- NOTE | 2021-02-05 23:42 | NUR ---
ATTEMPTED TO CALL pt's DAUGHTER JESSE PHONE NUMBER [phone]. NO ANSWER, LEFT A MESSAGE WITH HOSPITAL NUMBER FOR HER TO RETURN CALL. pt UPDATED.
--- NOTE | 2021-02-06 00:20 | NUR ---
IN TO DO ASSESSMENT. pt RESTING IN BED AWAKE. NO CHANGES IN ASSESSMENT AT THIS TIME. CALL LIGHT WITHIN REACH.
--- NOTE | 2021-02-06 01:25 | NUR ---
PUMP ALARMING, ISSUE RESOLVED. pt RESTING ON LEFT SIDE AWAKE. REPORTED SHE WAS HAVING TROUBLE SLEEPING. LIGHTS OFF FOR COMFORT. ASSISTED TO REPOSITION. CALL LIGHT WITHIN REACH.
--- NOTE | 2021-02-06 01:37 | EKG ---
[facility] [address] [facility] [place] [address] Signed Atrial flutter with variable AV block ST \T\ T wave abnormality, consider lateral ischemia Abnormal ECG When compared with ECG of 27-JAN-2021 18:30, Atrial flutter has replaced Sinus rhythm Vent. rate has increased BY 37 BPM Confirmed by AURORA GRIMES MD ([id number]) on 02/06/2021 1:37:28 AM Electronically Signed By: AURORA GRIMES MD 02/06/21 0137 PATIENT NAME: JUAN LAZO Electrocardiogram DATE OF : 50 PHYSICIAN: AURORA GRIMES MD REPORT #: [id number] REPORT IS CONFIDENTIAL AND NOT TO BE RELEASED WITHOUT AUTHORIZATION
--- NOTE | 2021-02-06 02:27 | NUR ---
CALL LIGHT ON. pt REPORTED SHE COULDN'T SLEEP. DISCUSSED OPTIONS. pt TALKED FOR A WHILE AND TOLD A FEW STORIES, REASSURED THAT WATCHING TV WOULD BE OKAY. IV MED GIVEN (SEE MAR). PROVIDED WITH CLEAR LIQUIDS. CALL LIGHT WITHIN REACH.
--- NOTE | 2021-02-06 02:53 | NUR ---
PAUSE NOTED ON ECG, pt CONVERTED FROM AFLUTTER TO SINUS RHYTHM. DILT GTT STOPPED.
--- NOTE | 2021-02-06 03:12 | NUR ---
pt CONVERTED BACK TO A FLUTTER RATE UNDER 100 AT THIS TIME. pt RESTING IN BED, EYES CLOSED, RESPIRATIONS REGULAR AND UNLABORED. CALL LIGHT WITHIN REACH.
--- NOTE | 2021-02-06 04:33 | NUR ---
CALL LIGHT ON. pt REPORTED SHE WAS AWAKE, STATED "I GOT A LITTLE NAP" NO NEEDS AT THIS TIME. ASSESSMENT DONE. BOWEL TONES ACTIVE. SOBIA DRAIN WAS MORE SEROUS IN COLOR THAN BROWN ALTHOUGH IT STILL HAS BILE PRESENT. DUMONT EMPTIED. pt REPOSITIONED. NO REQUESTS AT THIS TIME. CALL LIGHT WITHIN REACH.
--- NOTE | 2021-02-06 05:51 | NUR ---
IN TO GIVE SCHEDULED MEDICATION (SEE MAR). pt IN GOOD SPIRITS. TALKED ABOUT ILLNESS. URINE OUTPUT IMPROVED. NO REQUESTS AT THIS TIME. CALL LIGHT WITHIN REACH.
--- NOTE | 2021-02-06 07:51 | NUR ---
MED REC COMPLETE
--- NOTE | 2021-02-06 08:17 | NUR ---
PATIENT AWAKE IN BED, PATIENT IN GOOD SPIRITS BUT ANXIOUSLY WAITING TO SEE DR THIS MORNING. FACE AND HANDS WASHED. DUMONT EMPTIED. CALLL IGHT IN REACH
--- NOTE | 2021-02-06 10:22 | NUR ---
DR. BATISTA IN ROOM TO SEE PATIENT. PLAN WILL BE FOR PATIENT TO GO TO SURGERY LATER THIS AFTERNOON TO EXPLORE HER ABDOMEN FOR A POTENTIAL BILE LEAK. PATIENT EAGER TO HAVE SURGERY BECAUSE SHE IS HUNGRY. PT IS WANTING TO KNOW ABOUT HER DUMONT CATHETER AND WHEN THIS WILL BE D/C. DUMONT WILL STAY FOR NOW. IVF TO CONTINUE AT 85ML/HR. HR IN 100-115 RANGE, AFIB.
--- NOTE | 2021-02-06 11:53 | NUR ---
PATIENT AWAKE IN BED, DUMONT AND HANSA EMPTIED. RN NOTIFIED. CALL LIGHT IN REACH
--- NOTE | 2021-02-06 12:33 | NUR ---
COMPUTER GAME TESTER IN ROOM AND NOW FINISHED. PT TO BE GOING TO SURGERY SOON AND IS READY TO GO. IVF CONTINUE AT 85 ML/HR. PT REMAINS IN AFIB 90s. SCDs ON.
--- NOTE | 2021-02-06 13:40 | NUR ---
CHLORHEXIDINE WIPES USED ON PATIENT. NEW GOWN PROVIDED. JULIA AND HANSA DRAINED. CALL LIGHT IN REACH
--- NOTE | 2021-02-06 14:05 | NUR ---
PATIENT TAKEN TO SURGERY AT 1400 ON STRETCHER. PATIENT ABLE TO STAND TO GET ONTO STRETCHER. DENTURES REMOVED PRIOR TO PATIENT GOING. CONTINUE TO MONITOR.
--- NOTE | 2021-02-06 14:09 | NUR ---
PATIENT NOTED TO HAVE CONVERTED FROM AFIB TO SINUS RHYTHM AT 1337, BUT THEN BACK TO AFIB SHORTLY AFTER AT 1342.
--- NOTE | 2021-02-06 16:00 | NUR ---
Spoke with Rn, and pt has returned to surgery. Will follow up tomorrow.
--- NOTE | 2021-02-06 18:01 | NUR ---
02/06/21 1801 Rachell Corbin 1705 PT ARRIVED IN CCU NON RESPONSIVE TO NOXIOUS STIMULI WITH OPA IN PLACE. 1715 PT REACTIVE. UNABLE TO FOLLOW COMMANDS. 1720 REACTIVE AND FOLLOWING COMMANDS. OPA REMOVED. 1730 O2 REMOVED. SATS DROPPED TO 88% ON RA. O2 @ 4L NC PLACED. SATS INCREASED TO 92-96%. PT DRAWING ARMS UP TO CHEST AND HOLDING IN PLACE. DECLINED PAIN MED WHEN OFFERED. BLOOD SUGAR 139 BY CCU RN. 1745 MOVING ARMS AROUND IN BED. NO C/O'S. 1750 REPORT GIVEN TO CCU RN.
--- NOTE | 2021-02-06 18:06 | NUR ---
CARE OF PATIENT RESUMED BY THIS RN AT 1750. PATIENT RETURNS FROM AN EXPLORATION OF ABDOMEN AND SURGICAL REPAIR OF GASTRODUODENAL ULCER PERFORATION WITH G-TUBE PLACEMENT. G-TUBE IS CONNECTED TO A DUMONT DRAINAGE BAG TO GRAVITY DRAIN AT THIS TIME WITH CLEAR LIQUID IN A SMALL AMOUNT DRAINING. PT IS ON 4L NC AND SP02 IS 95%, THEREFORE TURNED DOWN TO 3L NC. MIDLINE INCISION IS COVERED WIHT GAUZE AND OPSITE. IVF ARE INFUSING AT 85 ML/HR. DUMONT DRAINING CLEAR YELLOW URINE. HANSA DRAIN ON RIGHT SIDE HAS SANGINOUS DRAINAGE IN HANSA DRAIN. PATIENT'S DAUGHTER ADRIENNE CALLS AND GIVEN UPDATE ON PATIENT'S SURGERY. PT ALSO CONVERTED TO SINUS RHYTHM DURING SURGERY, AND REMAINS IN SINUS AT THIS TIME, HR 70s. LAST BP 132/68. CONTINUE TO MONITOR CLOSELY.
--- NOTE | 2021-02-06 19:30 | NUR ---
RECEIVED REPORT FROM [facility] RNS. pt RESTING IN BED. DR BATISTA IN TO SEE pt. MD ENTERED NEW ORDERS. CALL LIGHT WITHIN REACH.
--- NOTE | 2021-02-06 20:20 | NUR ---
TALKED TO pt ABOUT SURGERY AND PLAN OF CARE. pt REPORTED 10/10 PAIN IN SURGICAL AREA. [place] RN IN TO GIVE PAIN MEDICATION AND SCHEDULED MEDICATIONS.
--- NOTE | 2021-02-06 21:23 | NUR ---
PATIENTS SCHEDULED MEDICATIONS GIVEN PER ORDER. PATIENT RATES PAIN AT A 10/10. PATIENT GIVEN PRN PAIN MEDICATION PER ORDER. PATIENT REPOSITIONED IN BED. PATIENTS G-TUBE CLAMPED AT THIS TIME. PATIENT DENIES ANY FURTHER NEEDS. CALL LIGHT IN REACH. IV INFUSING PER ORDER.
--- NOTE | 2021-02-06 21:40 | NUR ---
pt MOANING, REPORTS PAIN REMAINS AT 10/10. PRN GIVEN (SEE MAR). ASSESSMENT COMPLETED. pt WAS ROLLED TO REMOVE SURGICAL LINENS, PAINFUL WITH MOVEMENT. INCISION SITE HAS ACTICOAT SURGICAL DRESSING, SCANT DRAINAGE FROM DISTAL END. DRAIN TO RIGHT SIDE AND G TUBE TO LEFT SIDE ARE BOTH INTACT, DRESSINGS INTACT. SANGUINEOUS DRIANAGE FROM HANSA DRAIN. G TUBE TO GRAVITY DRAIN AFTER BEING CLAMPED FOR CARAFATE ADMINISTRATION. CALL LIGHT WITHIN REACH. CURTAIN OPEN TO NURSES STATION.
--- NOTE | 2021-02-06 22:19 | NUR ---
IN TO GIVE IV MEDICATIONS (SEE MAR). pt RESTING IN BED WITH EYES CLOSED, RESPIRATIONS REGULAR AND UNLABORED. CALL LIGHT WITHIN REACH. CURTAIN OPEN TO NURSES STATION.
--- NOTE | 2021-02-06 23:18 | NUR ---
ROUNDED ON pt. REPOSITIONED. pt RESTING WITH EYES CLOSED, FACE RELAXED, RESPIRATIONS REGULAR AND UNLABORED. SATS 96% ON 2L. CALL LIGHT WITHIN REACH. CURTAIN OPEN TO NURSES STATION.
--- NOTE | 2021-02-07 00:18 | NUR ---
pt MOVING IN BED. THIS RN IN TO ASSESS. pt AWAKE, ORIENTED TO SELF, PLACE AND EVENT. pt IS A LITTLE DROWSY BUT ANSWERS QUESTIONS CORRECTLY. DENIES PAIN AT THIS TIME. 2PA TO BOOST AND REPOSITION. NO CHANGES IN DRESSINGS OR DRAINAGE. NO CHANGES IN ASSESSMENT. BOWEL TONES REMAIN HYPOACTIVE. CALL LIGHT WITHIN REACH. CURTAIN OPEN TO NURSES STATION.
--- NOTE | 2021-02-07 01:40 | NUR ---
IV ANTIBIOTIC INFUSION COMPLETED. SL BROWN LUMEN. pt RESTING IN BED WITH EYES CLOSED, RESPIRATIONS REGULAR AND UNLABORED. CALL LIGHT WITHIN REACH. CURTAIN OPEN TO NURSES STATION. O2 AT 1L.
--- NOTE | 2021-02-07 02:25 | NUR ---
IN TO GIVE MEDICATION. EMPTIED GRAVITY BAG FROM G TUBE, CLEAR LIQUID WITH SOME MUCUS. pt WOKE WITH CARES. DENIED PAIN AT THIS TIME. NO REQUESTS. REPOSITIONED. CALL LIGHT WITHIN REACH. CURTAIN OPEN TO NURSES STATION.
--- NOTE | 2021-02-07 03:08 | NUR ---
IN TO GIVE IV MEDS (SEE MAR). pt AWAKE AND ALERT. NO REQUESTS AT THIS TIME. DENIES PAIN. CALL LIGHT WITHIN REACH.
--- NOTE | 2021-02-07 05:11 | NUR ---
pt AWAKE. ORIENTED TO SELF AND SITUATION. ORIENTED pt TO FULL STORY OF HOSPITALIZATION AND WHAT HAPPENED DURING SURGERY. pt IS ABLE TO REMEMBER PIECES BUT STATED "I FEEL LIKE I'M MISSING SOME HOURS" DENIES PAIN AND SOB AT THIS TIME. SOBIA DRAIN IS PUTTING OUT A SCANT SS DRAINAGE. G TUBE IS TO GRAVITY NO OUTPUT NOTED. pt REPOSITIONED, MOVING SELF IN BED. LABS DRAWN. CALL LIGHT WITHIN REACH.
--- NOTE | 2021-02-07 08:39 | NUR ---
DR. GRIMES IN ROOM TO SEE PATIENT. PATIENT STATES, "I JSUT DIDN'T KNOW THE SURGERY WAS GOING TO BE SO INVOLVED." DISCUSSED WITH PATIENT HER CURRENT ILLNESS AND EVERYTHING THAT HAS HAPPENED OVER THE LAST 2 WEEKS.PT STATES HER PAIN IS 2/10. MIDLINE INCISION IS C/D/I. HANSA DRAINING SEROSANGINOUS FLUID AND THE G TUBE IS DRAINING CLEAR FLUID. CARAFATE GIVEN A SLURRY INTO G-TUBE. PT REMAINS ON 1L NC. TRIALED OFF OXYGEN AND STILL DESATS TO 86%. PT DENIES SHORTNESS OF BREATH. DUMONT DRAINING YELLOW URINE.
--- NOTE | 2021-02-07 09:16 | NUR ---
VITALS AND I&OS CHARTED. JULIA AND HANSA EMPTIED. CALL LIGHT IN REACH
--- NOTE | 2021-02-07 11:34 | NUR ---
PATIENT UP TO CHAIR X2 PERSON STANDBY ASSIST. PT GIVEN FULL BED BATH AND LINEN CHANGED PER MANAGER LEARNING. HR REMAINS IN THE 70s, SINUS. PT REMAINS ON 1L NC. PT TOLERATED THIS ACTIVITY WELL. HANSA DRAIN CONTINUES TO DRAIN SEROSANGINOUS FLUID, AND G-TUBE PUTTING OUT SMALL AMOUNT OF CLEAR DRAINAGE. WILL CONTINUE TO MONITOR.
--- NOTE | 2021-02-07 13:03 | NUR ---
PATIENT CONTINUES TO REST IN CHAIR AT THIS TIME. PT REMAINS IN SINUS RHYTHM. LAST BP 136/65 (86). HANSA DRAIN CONTINUES WITH SEROSANGINOUS DRAINAGE. PT IN CHAIR STILL AND HELPED TO RECLINE FURTHER SO SHE CAN REST. PT IS TIRED AND ALSO HUNGRY. WAITING ON DR. BATISTA TO ROUND ON PATIENT.
--- NOTE | 2021-02-07 13:24 | NUR ---
PT's nurse thought PT would appreciate a visit. She was asleep so I told the nurse I would try back. When I tried again PT was receiving PT care.
--- NOTE | 2021-02-07 15:20 | NUR ---
Spoke with Yeni, and she states she feels 100% better. Will start clear liq and she is very happy. Plans on dc to home when medically stable and ready for dc. Plans on return to work when able.
--- NOTE | 2021-02-07 17:45 | NUR ---
IN ROOM TO EMPTY DRAINS AND DUMONT. DRESSINGS CDI. SMALL AMOUNT OF RED DRAINAGE OUT OF HANSA AND SMALL AMT ALMOST CLEAR FLUID OUT OF LEFT SIDE DRAIN. U\O QS. PT DENIES NEEDS OR CONCERNS. SITTING UP IN CHAIR. CALL LIGHT IN REACH.
--- NOTE | 2021-02-07 20:00 | NUR ---
PATIENT ASSISTED FROM THE RECLINER TO THE BED. PATIENT MOVES WITH LIMITED ASSIST BUT VERY SLOWLY DUE TO PAIN AND WEAKNESS. PATIENT'S VS STABLE. MIDLINE INCISION HAS SMALL AMOUNT OF DRAINAGE DISTAL END. HANSA DRAIN HAS MINIMAL OUTPUT THAT IS SEROSANGUENOUS, LIGHT RED IN COLOR. SITE WNL. BLOOD NOTED ON LFQ FROM LAST HEPARIN SUB-Q INJECTION. BANDAID REMOVED, AREA CLEANS. GAUZE AND TAPE PLACED OVER AREA. G-TUBE SITE WNL. CARAFATE CRUSHED IN WATER AND INJECTED INTO G-TUBE SLOWLY. TUBE CAPPED. MINIMAL CLEAR DRAINAGE NOTED IN DRAINAGE BAG. ABD IS TENDER, MILDLY DISTENDED. BOWEL SOUNDS HYPOACTIVE. NO NAUSEA. DUMONT CARE DONE, GOOD URINE OUTPUT. SCDs IN PLACE. LUNG SOUNDS ARE CLEAR THROUGHOUT. CENTRAL LINE DRAWS BACK BLOOD IN ALL 3 LUMENS, FLUSHED WELL. ASSISTED PATIENT WITH EVENING CARE. CALL LIGHT IN REACH.
--- NOTE | 2021-02-07 21:00 | NUR ---
PATIENT APPEARS TO BE SLEEPING SOUNDLY. REQUIRES 2L NC DUE TO DESAT WHILE SLEEPING. PATIENT WAKES ONLY BREIFLY. SEVERAL MINS LATER THE PATIENT'S DAUGHTER CALLED TO INFORM STAFF HER MOTHER HAD CALLED CONFUSED ABOUT WHERE SHE WAS AND ACTIVITIES SHE WAS DOING, LIKE SAYING SHE WAS DRIVING A TRUCK. PATIENT THEN CALLED BACK TO SAY SHE KNEW SHE WAS DELUSIONAL AND THOUGHT SHE HAD BEEN MAYBE DREAMING. WHEN THIS RN ENTERED THE PATIENT'S ROOM SHE WAS ALERT AND ORIENTED X4. REMEMBERS MAKING THE PHONE CALL AND KNOWS SHE WAS CONFUSED. ENCOURAGED PATIENT TO TRY TO SLEEP.
--- NOTE | 2021-02-07 23:38 | NUR ---
PATIENT WOKE SLIGHTLY CONFUSED ON HER SURROUNDINGS AND ANXIOUS. PATIENT EASILY REORIENTED AND STATES "I KNEW I WAS DELUSIONAL AGAIN". PATIENT ENCOURAGED TO REST AND TRY TO SLEEP. REPORTS PAIN IN HER ABD AND IS MOANING SLIGHLTY, REPORTS PAIN 4/10. PRN MORHINE PROVIDED. ASSISTED PATIENT TO POSITION FOR COMFORT. BED ALARM ACTIVE. CALL LIGHT IN REACH.
--- NOTE | 2021-02-08 02:00 | NUR ---
patient appears to be sleeping soundly. vs stable.
--- NOTE | 2021-02-08 03:47 | NUR ---
PATIENT RESTING IN BED WATCHING TV. STATES THAT SHE IS UNABLE TO SLEEP ANY MORE TONIGHT. CARAFATE PROVIDED PER G-TUBE. PATIENT REPORTS ADEQUATE PAIN CONTROL AND DENIES NAUSEA. VS STABLE. GOOD URINE OUTPUT. DRESSINGS ARE INTACT, SMALL AMOUNT OF DRAINAGE NOTED FROM PRIOR ASSESSMENT. PATIENT IS ORIENTED X4.
--- NOTE | 2021-02-08 06:31 | NUR ---
patient provided with prn morhpine for 4/10 pain. patient is alert and oriented. vs stable. iv abx started, fluids per order. no gi upset. afia drain had 20mls out. enamorado emptied. scant drainage from g-tube. patient denied further needs. call light in reach.
--- NOTE | 2021-02-08 07:30 | NUR ---
RECEIVED REPORT AT 0700, PT IN BED RESTING.
--- NOTE | 2021-02-08 09:00 | NUR ---
UPPER LOBES CLEAR, LOWER LOBES DIMINISHED. RUQ AND LUQ SOUNDS ABSENT, LLQ AND RLQ SOUNDS PRESENT. MIDLINE DRESSING C/D/I, HANSA INSERTION SITE SOME SEROUS DRAINANGE PRESETN, HANSA-DRAIN OUTPUT SEROUS IN NATURE, OVERALL NO NEW CONCERNS NOTED. GI-TUBE HAS HAD NO OUTPUT TO SPEAK OF.
--- NOTE | 2021-02-08 11:00 | NUR ---
PT IN ROOM. NO NEW CONCERNS NOTED AT THIS TIME. G-TUBE UNCLAMPED. IT WAS CLAMPED FOR CARAFATE ADMINISTRATION SINCE 1029.
--- NOTE | 2021-02-08 13:00 | NUR ---
UPPER LOBES CLAR, LOWER LOBES DIMINISHED WITH OCCASIONAL EXP. WHEEZING AT THIS TIME. RUQ AND LUQ HAVE RARE TONES, RLQ AND LLQ SOUNDS ARE PRESENT. DRESSINGS ARE UNCHANGED. NO PERIPH. EDEMA NOTED WITH +2 PEDIS PULSES. NO NEW CONCERNS NOTED AT THIS TIME.
--- NOTE | 2021-02-08 14:58 | NUR ---
1445 G-TUBE CLAMPED FOR CRAFATE ADMININSTRATION. NO NEW CONCERNS NOTED AT THAT TIME.
--- NOTE | 2021-02-08 15:32 | HP ---
[facility] [address], [place] [address] Signed ADMISSION DATE: 02/04/2021 TIME: 06:40 p.m. PROBLEM: Probable perforated duodenal ulcer with peritonitis, recent discharge from hospital with COVID pneumonia. HISTORY OF PRESENT ILLNESS: This obese 70-year-old white woman was discharged from the hospital today having been hospitalized for bilateral pneumonia related to COVID-19 infection. The patient was unvaccinated. She is considered to be 9 days since her infection. Within an hour of discharge, she returned to the hospital with complaints of epigastric pain. Review of her hospitalization shows she was treated with steroids and other supportive medications. She was said to have a small bowel movement earlier in the day. Evaluation by Dr. Rowland showed that to have rather severe, but nonfocal abdominal pain and tenderness. On that basis, she underwent a CT scan of the abdomen, which shows bubbles of free air around the duodenum and thickening of the gallbladder highly suggestive of a perforated duodenal ulcer. As regard to COVID issue, the CT scan does show bilateral pneumonia and typical distribution of COVID pneumonia. Laboratory studies show white count of 12.1 with hematocrit of 33.5 and platelets of 253,000. Her chemistry showed sodium of 129 (was lower during hospitalization apparently), chloride of 93, creatinine of 0.74, glucose of 198, calcium 7.9, and total protein of 5.3. Urinalysis was found to be positive for nitrites, 1+ bacteria. Review of her recent hospitalization records included a progress note from Dr. Fields yesterday showing improving strength, ability to perform ADLs and treatment for urinary tract infection to include Cipro. She did have severe hyponatremia, which has now improved. She was considered to have metabolic encephalopathy related to her respiratory failure and hypoxemia from multi-lobar pneumonia, but resolved by time of discharge. REVIEW OF SYSTEMS: She denies any lower abdominal pain. Her problem is mostly in the upper abdomen. She has had no hemoptysis. PHYSICAL EXAMINATION: Electronically Signed By: ELSI BATISTA MD 02/08/21 1532 PATIENT NAME: JUAN LAZO HISTORY AND PHYSICAL DATE OF : 50 REPORT #: [id number] PHYSICIAN: ELSI BATISTA MD PCP: CHRISTINE BALDWIN MD REPORT IS CONFIDENTIAL AND NOT TO BE RELEASED WITHOUT AUTHORIZATION [facility] [address], [place] [address] Signed GENERAL: This is an obese white woman, who does not look diaphoretic. VITAL SIGNS: Her temperature is 97.9, pulse is 71, blood pressure 148/74, O2 saturation 97% on 2 L nasal cannula oxygen. HEENT: Mucous membranes are quite dry, an IV is not running. Trachea is midline. CHEST: Shows diminished respiratory excursion. She has no tachypnea. ABDOMEN: Quite obese. There is tenderness in the epigastric area, which is quite marketing consistent with peritonitis. EXTREMITIES: Obese. She has no clubbing, cyanosis, or edema at this time. LABORATORY DATA: Lab studies are as previously described. ASSESSMENT: The patient has the unfortunate finding of probable perforated duodenal ulcer as manifested by extraluminal air bubbles around the duodenum and pericholecystic thickening. She does not have gross amounts of free air, though I suspect her perforated. She has a perforated ulcer, which is rather acute. Complicating matter is not only her obesity, but her recent COVID pneumonia, for which she has been recovering. I do not believe that conservative management in her case would be appropriate. She will require operation. Laparoscopic approach to include lavage, identification of the ulcer and patching with omental patch may be beneficial, but she may require open surgery as well. Whether or not the gallbladder with its thickening is secondarily inflamed or another primary problem is uncertain. The biggest hazard in her situation is the underlying bilateral COVID related pneumonia, for which endotracheal intubation and general anesthesia can make much worse. I do not believe there is any real choice against this, however. She may well from the intervention, but will very clearly have a high mortality without it I believe. Discussed all this very candidly with the patient, she understands and wishes to proceed. I have initiated meropenem antibiotic and initiating fluid resuscitation. An orogastric or nasogastric tube will be placed as well. Heparin subcutaneously will be administered as such patients are certainly well known to have micro thrombi. ASSESSMENT AND PLAN: The relationship between her perforated duodenal ulcer and administration of steroids during her hospitalization is uncertain. I am not entirely sure regarding ulcer prophylaxis and whether or not it was initiated during the course of hospitalization. We will investigate this further. She has been treated with intravenous Pepcid. Electronically Signed By: ELSI BATISTA MD 02/08/21 1532 PATIENT NAME: JUAN LAZO HISTORY AND PHYSICAL DATE OF : 50 REPORT #: [id number] PHYSICIAN: ELSI BATISTA MD PCP: CHRISTINE BALDWIN MD REPORT IS CONFIDENTIAL AND NOT TO BE RELEASED WITHOUT AUTHORIZATION [address] [address] Signed MD NICO [place]/MODL /[id number] cc: MD Sigifredo Prieto Rowland Copies: TEODORA FIELDS PHONG ~ Electronically Signed By: ELSI BATISTA MD 02/08/21 1532 PATIENT NAME: JUAN LAZO HISTORY AND PHYSICAL DATE OF : 50 REPORT #: [id number] PHYSICIAN: ELSI BATISTA MD PCP: CHRISTINE BALDWIN MD REPORT IS CONFIDENTIAL AND NOT TO BE RELEASED WITHOUT AUTHORIZATION
--- NOTE | 2021-02-08 16:32 | NUR ---
PT TRANSFERED TO MS AT 1620. REPORT GIVEN TO JAN GARDINER.
--- NOTE | 2021-02-08 16:40 | NUR ---
REPORT RECEIVED FROM NIGHT RN AND PT. CARE RESUMED. PT. IS ALERT AND ORIENTED. G-TUBE RECONNECTED TO CATHETER BAG TO DRAIN TO GRAVITY. HANSA DRAIN EMPTIED OF 30ML SERISANGUINOUS FLUID. MIDLINE DRESSING IS CDI WITH A VERY SMALL AMOUNT OF SHADOWING. PT. RATES ABDOMINAL PAIN 3/10 AND TOLERABLE. PT. REPORTS NOT PASSING GAS AT THIS TIME. PT. LEFT RESTING WITH CALL LIGHT IN REACH.
--- NOTE | 2021-02-08 17:50 | NUR ---
No change in plan for dc.
--- NOTE | 2021-02-08 19:19 | NUR ---
Shift report received from ZULEYKA Srinivasan. Pt resting in bed safely w/ call light in reach. Pt denies any needs at this time, whiteboard updated.
--- NOTE | 2021-02-08 20:00 | NUR ---
Pt resting in bed safely w/ call light in reach. Pt c/o pain in abd, PRN oral pain medication given per pt request/provider order. Evening assesment completed and scheduled meds given per provider orders.
--- NOTE | 2021-02-08 22:29 | NUR ---
Pt resting safely w/ call light in reach and eyes closed, RR even and unlabored. IV abx hung and insfusing per provider order. VSS on RA.
--- NOTE | 2021-02-09 00:05 | NUR ---
Pt resting in bed safely w/ call light in reach and eyes closed, RR even and unlabored.
--- NOTE | 2021-02-09 02:14 | NUR ---
Pt resting safely in bed w/ call light in reach, watching TV, pt given jello per request. Scheduled medication given in Gtube and IV fluids/abx infusing per provider orders.
--- NOTE | 2021-02-09 04:32 | NUR ---
Pt resting in bed safely w/ call light in reach, watching TV. Pt denies any pain or nausea, pudding and jello given roslyn request.
--- NOTE | 2021-02-09 06:30 | NUR ---
Pt slept until 0400, has been awake since then watching TV. Pt c/o pain in abd but denied any nausea, PRN oral pain medication given per pt request/provider order. Pt has had sufficient fluid intake aand urine output for the shift. Pt A+O x3. G-tube to gravity w/ small amount of sludgy brown drainage, HANSA w/ small amount of serosanguines drainage.
--- NOTE | 2021-02-09 09:55 | OR ---
[facility] [address], [place] [address] Signed DATE OF OPERATION: 02/04/2021 SURGEON: Elsi Batista MD PREOPERATIVE DIAGNOSES: 1. Peritonitis likely related to the perforated duodenal ulcer. 2. Recovery phase of bilateral COVID pneumonia hospitalization at [facility], discharged today, returned to the ER. 3. Distant history of gastric bypass operation and obesity. POSTOPERATIVE DIAGNOSIS: Perforated bulbar duodenal ulcer (large) pyloric channel PROCEDURES: 1. Laparoscopy. 2. Laparoscopic Jose patch repair of duodenal ulcer. 3. Peritoneal lavage and placement of drain. 4. Left subclavian central venous catheter placement. ANESTHESIA: General endotracheal, Carmen Hitchcock BIOENGINEER and local 20 mL of 0.25% Marcaine with epinephrine. INDICATIONS: This obese 70-year-old white woman was hospitalized for a number of days at [facility], most recently under the direction of Dr. Fields for severe COVID disease. She did have Intensive Care Unit treatment, though she was not intubated. Review of records, show that she was treated with Decadron and other interventions. She was discharged today with home oxygen of 2 L/minute. Within an hour of arriving at home, she had severe epigastric pain and was transported by EMS services back to the hospital emergency room and evaluated by Dr. Rowland. She was found to have peritonitis. A CT scan was obtained, which showed small bubbles of free air in the region of the duodenal bulb. Notably, she has undergone gastric bypass operation number of years ago. Gallbladder was markedly edematous and inflamed without sign of gallstones. I was consulted and evidence suggests perforated duodenal ulcer, as suspected by the radiologist. Given the anatomy of the patient related to gastric bypass operation, the amount of free air is limited, but her peritonitis is rather significant and severe. Electronically Signed By: ELSI BATISTA MD 02/09/21 0955 PATIENT NAME: JUAN LAZO OPERATIVE REPORT DATE OF : 50 REPORT #: [id number] PHYSICIAN: ELSI BATISTA MD PCP: LETICIA BALDWIN MD REPORT IS CONFIDENTIAL AND NOT TO BE RELEASED WITHOUT AUTHORIZATION [facility] [address], [place] [address] scan additionally shows bilateral infiltrates related to COVID problem. She was diagnosed with COVID on the 19 of January (today is the ), which makes her in her convalescent phase, but still possibly infected. I have recommended emergency operation for control of presumed duodenal perforation either laparoscopically or by open technique. A laparoscopic approach may be preferred if it can diminish limitations of her breathing effects from operation. I have discussed this with the patient and her daughter. She is at high risk of serious complication or and large part related to the underlying COVID disease. Understanding all of this, they wished to proceed. FINDINGS: Laparoscopy did confirm generalized peritonitis within watery bilious fluid leak in the upper abdomen. The gallbladder was markedly secondarily inflammed at the infundibulum providing some coverage in the area of duodenal perforation. Thin bilious fluid with secondary inflammation was noted without sign of food particulates, no doubt related to her anatomy from gastric bypass. By conclusion, cleanup of the abdomen was undertaken with peritoneal lavage and closure of the defect by Jose patch in the classic sense (omentum) within the defect and secured circumferentially. Cholecystectomy was not performed. DESCRIPTION OF PROCEDURE: The patient was given fluid resuscitation in the emergency room and intravenous antibiotic meropenem and Protonix intravenously administered. A nasogastric tube was placed, which drained no evidence of biliary fluid consistent with presumed anatomy of a Marco-en-Y gastric bypass. The patient had very severe peritoneal inflammatory tenderness. She was given a general endotracheal anesthetic. A Cohen catheter was placed. The abdomen was prepared with a chlorhexidine solution and draped sterilely. The nasogastric tube was removed as it was draining only scant fluid. An infraumbilical incision was made and using an open Rodrigo cannula technique and pneumoperitoneum achieved to a level of 14 mmHg with carbon dioxide gas. Intraabdominal inspection confirmed inflammatory changes in the upper abdomen including biliary fluid, it was turbid in the upper abdomen over the dome of the liver. An epigastric 10 mm port was placed and single hand manipulation of the colon, which was draped over the liver as well as an area of the gallbladder was undertaken. Biliary staining and dark inflammatory changes were noted on the liver bed. A right subcostal 5 mm port was placed and with two hand manipulation, further manipulation of the liver edge in the gallbladder could be undertaken. The gallbladder was elevated cephalad and was noted to be markedly inflamed and edematous. Doing so allowed for revealing of the duodenal perforation related to a somewhat linear oriented ulcer in the duodenal bulb. Electronically Signed By: ELSI BATISTA MD 02/09/21 0955 PATIENT NAME: JUAN LAZO OPERATIVE REPORT DATE OF : 50 REPORT #: [id number] PHYSICIAN: ELSI BATISTA MD PCP: LETICIA BALDWIN MD REPORT IS CONFIDENTIAL AND NOT TO BE RELEASED WITHOUT AUTHORIZATION [address] [address] Signed There was no particular matter no doubt related to the anatomy of her gastrointestinal tract with the dominant portion of the stomach and duodenum isolated from the gastric pouch from Marco-en-Y gastric bypass. Irrigation was undertaken and the gallbladder was taken advantage of by elevating it cephalad, which allowed for a better plane between the gallbladder and the duodenum. Using blunt and electrocautery dissection, the edematous adhesions between the infundibulum of the gallbladder and the duodenal bulb posteriorly was undertaken. This allowed for good visualization of the duodenal ulcer defect. It was essentially at the pylorus. A segment of viable and mobile omentum just to the right of the duodenal bulb was identified. Using 0-silk suture on a taper needles, laparoscopic application of a Jose patch in the classic sense was undertaken. Four such sutures were used. The duodenal defect was packed with the omentum rather than closing of the duodenal defect itself. There appeared to be no evidence of leakage and irrigation was undertaken and vigorous manipulation of the duodenum again showing no sign of leakage. Tisseel was applied to the area. The gallbladder was allowed to treat to its natural anatomic position. Through the right-sided trocar site, a 7 mm flat Lukas drain was placed in the subhepatic space over the duodenum. There appeared to be no sign of bile leak or other problem. It is noted that typical insufflation of the stomach to assess for leakage at the repair was not possible as the gastric remnant proximal to the repair was not in continuity of the gi tract-- a so called " isolated gstric remnant". Attention was turned towards closure. The trocars removed under direct visualization showing no sign of bleeding. The infraumbilical fascial edges were reapproximated with interrupted 0-Vicryl suture. A 20 mL of 0.25% Marcaine with epinephrine injected locally in the trocar sites. The drain was attached to bulb suction. The skin was closed with interrupted 3-0 Vicryl. Steri-Strips were applied. Plans were then made for a central line as her peripheral access was rather precarious. Left arm was placed at the side in the left infraclavicular space was prepared with a chlorhexidine solution and using the Arrow blue tip triple-lumen catheter kit. The patient was placed in a mild Trendelenburg position. Using the Seldinger technique, the left subclavian vein was easily accessed showing dark nonpulsatile blood. A flexible J-wire was passed down the needle. Ectopy was noted and the wire was retracted a bit. The site was incised with an #11 blade and dilated with enclosed blue dilator and a previously inspected and irrigated air blue tip triple-lumen catheter passed over the wire. The wire was removed. Aspiration on the distal port showed dark nonpulsatile blood. Clave connectors have been applied and flushing of the catheters was without Electronically Signed By: ELSI BATISTA MD 02/09/21 0955 PATIENT NAME: JUAN LAZO OPERATIVE REPORT DATE OF : 50 REPORT #: [id number] PHYSICIAN: ELSI BATISTA MD PCP: LETICIA BALDWIN MD REPORT IS CONFIDENTIAL AND NOT TO BE RELEASED WITHOUT AUTHORIZATION [facility] [address] [place] [id number] Signed impediment. The device was secured to the skin within close collar device and secured in two point. An anti-infective disk was applied as was an op-site dressing. The patient was attempted for extubation, but despite reversal agents and so forth was drawing only 150 mL in tidal volume and this would certainly be inadequate and therefore she was transported to the Intensive Care Unit with full COVID precautions, ventilated by hand, and ultimately attached to the ventilator in the Intensive Care Unit. A postprocedure chest x-ray showed good position of the endotracheal tube and the tip of the central line catheter in the atriocaval junction. The operation was prolonged, complicated, and difficult, but was performed without complications. Sponge, needle, and instrument counts reported as correct x3. MD NICO Houston/FORRESTL /[id number] cc: MD Leticia Sauceda MD Copies: DORITA ROWLAND BRIAN DO ~ Electronically Signed By: ELSI BATISTA MD 02/09/21 0955 PATIENT NAME: JUAN LAZO OPERATIVE REPORT DATE OF : 50 REPORT #: [id number] PHYSICIAN: ELSI BATISTA MD PCP: LETICIA BALDWIN MD REPORT IS CONFIDENTIAL AND NOT TO BE RELEASED WITHOUT AUTHORIZATION
--- NOTE | 2021-02-09 09:55 | OR ---
[facility] [address] [place], [place] [address] Signed DATE OF OPERATION: 02/06/2021 SURGEON: Elsi Batista MD PREOPERATIVE DIAGNOSES: 1. Recent severe COVID pneumonia requiring hospitalization. 2. Large duodenal ulcer with perforation; recent laparoscopic Jose patch closure of gastroduodenal ulcer and placement of drain. 3. Postoperative bile leak of drain, postoperative day #2. 4. Area of persistent defect of recent ulcer at gastroduodenal junction. 5. History of Marco-en-Y gastric bypass; morbid obesity. POSTOPERATIVE DIAGNOSES: 1. Recent severe COVID pneumonia requiring hospitalization. 2. Large duodenal ulcer with perforation; recent laparoscopic Jose patch closure of gastroduodenal ulcer and placement of drain. 3. Postoperative bile leak of drain, postoperative day #2. 4. Area of persistent defect of recent ulcer at gastroduodenal junction. 5. History of Marco-en-Y gastric bypass; morbid obesity. 6. Persistent leakage at Jose patch site superiorly. PROCEDURES: 1. Open exploration of abdomen and removal of Jose patch. 2. Closure of gastroduodenal (pyloric channel) perforated ulcer (pyloroplasty Heineke-Mikulicz type). 3. Omental patch to repair. 4. CRISTELA gastrostomy placement (18-Lao) proximal to ulcer repair in isolated distal gastric remnant. ANESTHESIA: General endotracheal, Mika Garnett CRNA INDICATIONS: This 70-year-old white woman was admitted on February 04, 2021, with severe epigastric pain to the emergency room. She had only been discharged from the hospital an hour previously having been in the hospital for about nine days with COVID infection including bilateral severe pneumonia. She was found on CT scan to have periduodenal air bubbles highly suggestive of perforated duodenal ulcer. Of special note, the patient has undergone Marco-en-Y gastric bypass elsewhere a number of years ago, but does still have a fair amount of obesity. She underwent emergency operation, which included Electronically Signed By: ELSI BATISTA MD 02/09/21 0955 PATIENT NAME: JUAN LAZO OPERATIVE REPORT DATE OF : 50 REPORT #: [id number] PHYSICIAN: ELSI BATISTA MD PCP: CHRISTINE BALDWIN MD REPORT IS CONFIDENTIAL AND NOT TO BE RELEASED WITHOUT AUTHORIZATION [facility] [address] [place] [address] Signed laparoscopy, confirmation of a perforated duodenal ulcer at the gastroduodenal junction and a Jose patch repair laparoscopically performed. A drain was additionally placed. 48 hours after operation, she was noted by nurses to have some bilious drainage. Although the drainage does not appear green at this time and is light fuller and much choral teacher, concern is maintained for possible failure of the Jose patch or closure and I have recommended open exploration and remedy of the problem, so as to diminish chances of a duodenal fistula. The risk of bleeding, infection, development of fistula, need for unforeseen operations to cure the problem all reviewed in detail. She understands and wished to proceed. FINDINGS: There was no sign of gross contamination of the peritoneal cavity, but there was definitely inflammatory change in the area of the galen hepatis and the supraduodenal area. There appeared to be a small leak at the area of Jose patch closure. Notably, the Jose patch was a classic type with the omentum within the ulcer defect. The Jose patch was removed though it was healing quite well except in the superior posterior aspect. Complete kocherization of the duodenum was undertaken with meticulous care confirming the ulcer to be rather large and extending essentially across the gastroduodenal junction. A transverse closure was undertaken with meticulous care in a style typical of Heineke-Mikulicz pyloroplasty as well as application of an omental pedicle graft to bolster the repair. A drain was additionally placed in the supra duodenal area. As the patient has anatomy consistent with Marco-en-Y gastric bypass, the isolated stomach segment proximal to the ulcer had no continuity to the esophagus quite obviously and a gastrostomy tube was used to allow for decompression, further imaging as necessary as well as direct application of Carafate. It is postulated that her ulcer occurred related to persistent steroid administration during the course of her COVID infection. There were dense adhesions of small bowel elsewhere in the abdomen consistent with Marco-en-Y gastric bypass. Insufflation of a nasogastric tube placed orally did not insufflate the isolated stomach segment (nor was it expected to) which additionally justified placement of the gastrostomy tube proximal to the perforation repair. DESCRIPTION OF PROCEDURE: The patient was brought to the operating room, given a general endotracheal anesthetic with COVID precautions, though she is 10 days or more out from an initial infection. Electronically Signed By: ELSI BATISTA MD 02/09/21 0955 PATIENT NAME: JUAN LAZO OPERATIVE REPORT DATE OF : 50 REPORT #: [id number] PHYSICIAN: ELSI BATISTA MD PCP: CHRISTINE BALDWIN MD REPORT IS CONFIDENTIAL AND NOT TO BE RELEASED WITHOUT AUTHORIZATION [address] [address] Signed Quite notably her COVID test yesterday was still positive. She tolerated intubation well. A Cohen catheter was already in place as well as a central catheter in the left subclavian area. The drain was prepared in continuity with the abdominal wall. The abdomen was prepared with chlorhexidine solution and draped sterilely. An upper midline incision was made and dissection carried through the thick abdominal wall pannus allowing for entry into the abdomen. Notably, the midline fascia was not easily identified, therefore, some rectus muscle was transected during the course of incision. Upon entering to the abdomen, examination was undertaken of the drain. There appeared to be inflammatory fluid in the region of the duodenum. The Bookwalter retractor was affixed to the table. The drain was removed. Examination of the previous laparoscopic Jose patch showed good adherence of the omentum to the gastroduodenal junction but contamination superiorly and what appeared to be a small defect in this region. Whether omentum was not adequately secured to the area or if extension of the ulcer was part of the problem is uncertain. The sutures securing the Jose patch were removed and the omental pedicle taken down. Dense inflammation of the healing omental patch was noted. There was fibrinous debris in the subhepatic space. Areas of fibrin glue which had been applied were notably present as well. The ulcerative defect was rather significant in its size. Meticulous care was made in performing a Kristine maneuver to mobilize the C-loop of the duodenum more fully as well as the area of the pylorus and the perforated ulcer. In aggregate, the ulcer was on the gastric side of the pylorus dominantly. Small clips were used in the retroduodenal area to secure hemostasis as appropriate to allow for a tension-free closure of this defect. Care was taken to be mindful of the local anatomical structures, particularly head of the pancreas and the common bile duct position. It appeared feasible to close the ulcer defect. A transverse closure was deemed most advisable. This was undertaken with a technique of interrupted 3-0 Vicryl suture in the mucosal layer and interrupted 3-0 silk suture in the serosal layer. Friability of the serosa was noted. Care was taken to avoid pull through of the sutures. Edema and fragility of the duodenum and stomach was significant. Consideration was made for transverse closure of the proximal duodenum, but such a manuever would necessitate drainage of the defunctionalized gastric remnant and the local anatomic features of small bowel and adhesions would make such an anastomosis much more hazardous than closure of the ulcer itself. A right-sided pedicle of viable omentum was freed with electrocautery and blunt dissection and laid over the repair. Application of fibrin glue in the retroperitoneal area was undertaken for its hemostatic effect. The omental patch was secured to the Electronically Signed By: ELSI BATISTA MD 02/09/21 0955 PATIENT NAME: JUAN LAZO OPERATIVE REPORT DATE OF : 50 REPORT #: [id number] PHYSICIAN: ELSI BATISTA MD PCP: CHRISTINE BALDWIN MD REPORT IS CONFIDENTIAL AND NOT TO BE RELEASED WITHOUT AUTHORIZATION [address] [address] Signed serosal layer of the stomach and duodenum to additionally provide support for healing of this ulcer. Through a right sided separate stab incision, a 10 mm flat lukas drain was placed in the in the subhepatic space, not far from the duodenal closure itself. The overall anatomy was considered that of a Marco-en-Y gastric bypass. Thus, the distal stomach is isolated from the proximal gastric pouch. Review of the CT scan during operation showed the stomach to have a relatively normal contour, though the patient had described a " gastric bypass" many years ago. Given the appearance of the stomach on ct scan, consideration was made that perhaps she had in fact a sleeve gastrectomy rather than a gastric bypass. The transport coordinator was directed to pass a nasogastric tube, which showed no sign of bilious fluid. The tube was then injected with air... there was no distention of the portion of stomach visible to me. There were small bowel loops to the left side of the abdomen, likely corresponding to the Marco limb. These were not taken down particularly but left as is to avoid encumbrance or internal herniation. Mindful of the size of the ulcer, its etiology, and inability to image or even decompress the stomach proximal to the ulcer repair, a gastrostomy tube was deemed advisable. A Mary gastrostomy was placed at the antral junction using a 2-0 silk pursestring with application of previously inspected 18-Lao CRISTELA gastrostomy tube. The balloon was insufflated, allowing the stomach to be secured against the inner table of the upper abdomen. Serosal bites of 2-0 silk sutures of the stomach to the peritoneum of the abdominal wall were undertaken. Flushing of the CRISTELA tube was without impediment and no sign of leakage at the repair site of the gastroduodenal repair. Irrigation was undertaken. There was no sign of ongoing bleeding or other issues. Midline fascia was reapproximated with running bidirectional #1 PDS suture. Irrigation was undertaken in the subcutaneous space and skin closed with a stapling device. The flange of the CRISTELA tube was secured to the skin with interrupted 2-0 nylon and a #1 nylon was used to secure the flange to the G-tube itself. An Acticoat dressing was applied to the midline wound. The gastrostomy tube and the drain were secured to the skin with OpSite to avoid dislodgement. Drainage from the Lukas drain showed no evidence of enteric leakage or anything of that sort. Electronically Signed By: ELSI BATISTA MD 02/09/21 0955 PATIENT NAME: JUAN LAZO OPERATIVE REPORT DATE OF : 50 REPORT #: [id number] PHYSICIAN: ELSI BATISTA MD PCP: CHRISTINE BALDWIN MD REPORT IS CONFIDENTIAL AND NOT TO BE RELEASED WITHOUT AUTHORIZATION [facility] [address] [place] [id number] Signed The operation was rather prolonged, complicated and difficult mostly related to a significant friability of soft tissues, her obesity and anatomic variation. It was accomplished safely and with secure closure of the defect. She was able to be extubated and taken directly back to the intensive care unit. Blood loss was less than 50 cc and sponge and needle counts were reported as correct. MD NICO Houston/RADHA /[id number] cc: MD Verena Prieto MD Gwen Libby, MD Lohith Veerappa Reddy, MD Copies: TEODORA PEARCE CYNTHIA MD REDDY, LOHITH VEERAPPA MD ~ Electronically Signed By: ELSI BATISTA MD 02/09/21 0955 PATIENT NAME: JUAN LAZO OPERATIVE REPORT DATE OF : 50 REPORT #: [id number] PHYSICIAN: ELSI BATISTA MD PCP: CHRISTINE BALDWIN MD REPORT IS CONFIDENTIAL AND NOT TO BE RELEASED WITHOUT AUTHORIZATION
--- NOTE | 2021-02-09 10:00 | NUR ---
PT.'S G-TUBE RECONNECTED TO DUMONT BAG AFTER CARAFATE COMPLETED.
--- NOTE | 2021-02-09 10:30 | NUR ---
Patient is in chair slowly eating breakfast. Vitals, I&Os are complete. RN fixed IV. Call light is in reach and there are no requests from the patient.
--- NOTE | 2021-02-09 10:44 | NUR ---
REPORT RECEIVED FROM NIGHT RN AND PT. CARE RESUMED. PT. IS ALERT AND ORIENTED. CENTRAL LINE DRESSING INTACT AND IV ABX, IVF INFUSING. LUMENS FLUSH WELL AND AND RETURN BLOOD. PT. DENIES PAIN OR NAUSEA. BOWEL TONES HYPOACTIVE IN LUQ. G-TUBE DRAINING A SMALL AMOUNT OF SLUDGY BROWN LIQUID. DUMONT PATENT AND URINE YELLOW. SCDS IN PLACE AND PT. ASSISTED WITH FWW AND 2 STAFF WITH AMBULATING TO CHAIR. DISCUSSED POC AND SAFETY. LEFT RESTING WITH CALL LIGHT IN REACH.
--- NOTE | 2021-02-09 11:00 | NUR ---
Spoke with Adela. She cont. to feel better every day. Is eating full liq diet today and very happy. Cont. to plan to dc to home when medically stable. She did ask if she could have HH and I will leave a note for the
--- NOTE | 2021-02-09 11:04 | NUR ---
Patient has been in house x5 days. She had exploratory surgery of the abdomen with removal of Jose patch and closure of gastroduodenal perforated ulcer on 02/06/21. She is now on a FL diet now and tolerating well. She has a G-tube for administering Carafate. Diet advancement shouldn't be a problem. BMI is 39.6. Will continue to monitor.
--- NOTE | 2021-02-09 16:51 | NUR ---
ROUNDING ON PT. SHE DENIES PAIN OR NAUSEA AT THIS TIME. SHE IS DROWSY BUT EASILY AWAKENED. G-TUBE RECONNECTED TO DUMONT BAG. PT. LEFT RESTING WITH CALL LIGHT IN REACH.
--- NOTE | 2021-02-09 19:25 | NUR ---
SHIFT REPORT FROM NURSE MONTOYA. PT IS SITTING UP IN CHAIR, STATES THAT SHE IS TIRED AND WOULD LIKE TO GO TO BED SOON. WILL RETURN SHORTLY AFTER REPORT. PT AGREES. CALL LIGHT WITHIN REACH
--- NOTE | 2021-02-09 20:20 | NUR ---
IN ROOM TO ASSIST PT BACK TO BED FROM CHAIR AND TO GIVE CARAFATE SLURRY IN G-TUBE. PT REPORTS PAIN WITH MOVEMENT WHICH IMPEDES HER ABILITY TO AMBULATE WELL FROM CHAIR TO BED. PT IS ABLE TO MAKE THE TRANSFER WITH SBA AND VERY SMALL STEPS. WHILE PT IS SITTING AT BEDSIDE, NEW GOWN PUT ON, HANSA DRAINED, GTUBE INFUSED WITH CARAFATE SLURRY PER ORDER. ASSISTED PT INTO BED, CALL LIGHT WITHIN REACH. PT REQUESTS PRN PAIN MEDS.
--- NOTE | 2021-02-09 21:00 | NUR ---
IN ROOM FOR ASSESSMENT AND EVENING MEDS. PRN NORCO X 1 BROUGHT FOR PAIN IN ABDOMEN. VSS. URINE OUTPUT QS. HANSA DRAIN 6ML OUT, MIDLINE BANDAGE INTACT, SOME SHADOWING, SLIGHT DRAINAGE AT DORSAL PART OF BANDAGE. ABDOMEN FIRM ON RIGHT SIDE, PT STATES TENDER WITH PALPATION. CENTRAL LINE LUMENS FLUSH WELL WITH GOOD BLOOD RETURN. CMS INTACT. PT REPORTS TRANSIENT NUMBNESS IN RT HAND THAT "COMES AND GOES". SCDS ON. PT REPORTS THAT HER BOWELS "ARE STARTING TO REACT" WHEN ASKED IF SHE HAD PASSED GAS. BOWEL TONES SOMEWHAT HYPOACTIVE. DUMONT CARE PERFORMED. CALL LIGHT WITHIN REACH. BEDSIDE TABLE WITHIN REACH. NO FURTHER CARE NEEDS AT THIS TIME.
--- NOTE | 2021-02-09 22:15 | NUR ---
IN ROOM TO HANG IV ANTIBIOTICS. PT APPEARED TO BE SLEEPING THIS NURSE ENTERED THE ROOM. PT AWAKES TO ACTIVITY IN THE ROOM. PT REPORTS RELIEF FROM PAIN AFTER PO NORCO. BED RAILS PUT UP, CALL LIGHT WITHIN REACH. NO CARE NEEDS AT THIS TIME.
--- NOTE | 2021-02-10 00:19 | NUR ---
CALL LIGHT ANSWERED. IV PUMP ALARMING. PROBLEM SOLVED. NO CARE NEEDS AT THIS TIME.
--- NOTE | 2021-02-10 01:00 | NUR ---
CALL LIGHT ANSWERED. PT REQUESTS FRESH ICE WATER. PT STATES SHE IS "PROBABLY AWAKE FOR THE NIGHT NOW". HERBAL TEA OFFERED AND ACCEPTED SLEEP AID. CALL LIGHT WITHIN REACH.
--- NOTE | 2021-02-10 04:28 | NUR ---
IN ROOM FOR MORNING ASSESSMENT. PT REMAINS AWAKE SINCE 29. PT REPORTS NO PAIN AT THIS TIME. BOWEL TONES IMPROVING, MORE ACTIVE SINCE BEGINNING OF SHIFT. PT REPORTS NO PASSING OF GAS THUS FAR. CALL LIGHT WITHIN REACH. PT CONTINUES TO WATCH TV.
--- NOTE | 2021-02-10 05:25 | NUR ---
PER PARAMJIT ADKINS, PT REQUESTS PRN PAIN MEDICATON FOR ABDOMINAL PAIN. PT REPORTS 08/16 WHICH CAUSES PT TO MOAN. 1000MG PO TYLENOL ADMINISTERED AT THIS TIME. CALL LIGHT WITHIN REACH.
--- NOTE | 2021-02-10 07:10 | NUR ---
REPORT RECEIVED FROM ZULEYKA BRICEÑO. PT RESTING IN BED, AWAKE, ALERT AND ORINETED. DRESSINGS SHOW DRY SHADOWED DRAINAGE, NO FRESH DRAINAGE NOTED. PT REPORTS SHE IS "READY FOR BREAKFAST." NO ADDITIONAL REQUESTS OR COMPLAINTS. CALL LIGHT WITHIN REACH. BED RAILS UP.
--- NOTE | 2021-02-10 08:00 | NUR ---
MORNING ASSESSMENT AND MEDICATION DUE. PT RESTING IN BED, AWAKE ALERT AND ORIENTED. PT REPORTS 3/10 PAIN AND DENIES NEED FOR ADDIITONAL PAIN MEDICAITON. 1 PERSON ASSIST UP TO CHAIR. PT UNSTEADY ON FEET AND REPORTS FEELING WEEK. PT ABLE TO TAKE A FEW SHUFFELING STEPS TO CHAIR. G TUBE FLUSHED WITH 20ML TAP WATER. CLOGGED AND UNABLE TO FLUSH. 10ML 7-UP USED, TUBE CLEARS AFTER 5 MINUTES OF 7-UP SITTING IN TUBE. MEDICAITON GIVEN. TUBE FLUSHED WITH ADDITIONAL 50ML TAP WATER. CENTRAL LINE ASSESSED, DRESSING C/D/I. ALL LINES SHOW BRISK BLOOD RETURN. MEDICATION GIVEN THROUGH BLUE LINE, FLUSHED AND THEN HEPARIN LOCKED. BROWN AND WHITE LINES INFUSING. PT REPORTS SHE IS NOT YET PASSING GAS, PT DOES REPORT HUNGER AND IS EAGER TO EAT BREAKFAST. DRESSING OVER HANSA DRAIN SATURATED WITH OLD DRAINAGE. MIDLINE DRESSING 30% SATURATED WITH OLD RED SHADOWING. DRESSING TO G-TUBE C/D/I, NO DRAINAGE NOTED. STERI STRIPS OVER HANSA SITES INTACT, MOSTLY COVERED BY OTHER DRESSINGS. PT DENIES NAUSEA. NO ADDITIONAL REQUESTS OR COMPLAINTS. MEDICATIONS GIVEN. CALL LIGHT ES ERNST.
--- NOTE | 2021-02-10 09:36 | NUR ---
THIS RN TO ROOM TO CHECK ON PT. PT FINISHED WITH BREAKFAST. REMAINS UP TO CHAIR. PUMP ALARMING, INFUSION AND FLUSH COMPLETE. BROWN LUMEN FLUSHED AND HEPARIN LOCKED PER PROTOCOL, ALCOHOL CAP APPLIED. SCD'S REAPPLED. G-TUBE RETURNED TO GRAVITY DRAIN. PT CONTINUES TO STATE SHE IS NOT PASSING GAS YET. DRESSINGS UNCHANGED. PT RESTING WITH EYES CLOSED, PT MAKES NOISES IN SLEEP SIMILAR TO GROANS. PT AWAKENED AND ASKED IF SHE IS IN PAIN. PT STATES "NO, NOT AT ALL." PT ALLOWED TO CONTINUE RESTING. NO ADDITIONAL REQUESTS OR COMPLAINTS. CALL CLAUDETTE ERNST.
--- NOTE | 2021-02-10 11:29 | NUR ---
PT AWAKE IN ROOM IN CHAIR. CALL LIGHT WITHIN REACH. DUMONT EMPTIED NO FURTHER NEEDS AT THIS TIME.
--- NOTE | 2021-02-10 11:38 | NUR ---
THIS RN TO ROOM TO CHECK ON PT. PT REMAINS UP TO CHAIR. BLOOD SUGAR WITHIN RANGE, NO INSULIN NEEDED. PT REPORTS 2/10 PAIN AND DENIES NEED FOR PAIN MEDICATION. LUNCH ORDER PLACED. NO ADDITIONAL REQUESTS OR COMPLAINTS. CALL CLAUDETTE ERNST.
--- NOTE | 2021-02-10 13:40 | NUR ---
AFTERNOON ASSESSMENT AND MEDICATION DUE. PT REMAINS UP TO CHAIR. PT REPORTS 2/10 PAIN AND REQUESTS PAIN MEDICAITON. ONE TIME DOES OF IV TYLNOL GIVEN PER DR. BATISTA. CENTRAL LINE WNL. WHITE LINE INFUSING IV FLUIDS. BLUE LINE INFUSING ABX. BROWN LINE HEPARIN LOCKED. PT REPORTS TINGLING IN RIGHT HAND. PT ENCOURAGED TO MOVE ARMS AND HANDS AROUND. LUNG SOUNDS CLEAR. OCCATIONAL COUGH NOTED, NO SPUTUM NOTED. ABDOMEN SOFT BUT TENDER TO TOUCH. MEDICAITON GIVEN THROUGH G-TUBE WHICH REMAIND CLAMPED FOR 30 MINUTES AFTER MEDICATION ADMINISTRATION AND 30M TAP WATER FLUSH. AFTER 30 MINUTES, G-TUBE RETURNED TO GRAVITY DRAIN. MD TO BEDSIDE FOR ROUNDS. ORDERS GIVEN TO DC DUMONT CATHTER, CATHETER DC'D PER PROTOCOL. DRESSINGS TO ABDOMEN UNCHANGED, INTACT WITH SHADOWING NOTED PREVIOUSLY MENTIONED. DRESSINGS REMAIN IN PLACE PER MD ORDER. PT REPORTS "FEELING TIRED" RESTING IN CHAIR. CALL LIGHT IN HAND. ORAL FLUIDS ENCORUAGED. NO ADDITIONAL REQUESTS OR COMPLAINTS. CALL LIGHT WIHTIN REACH.
--- NOTE | 2021-02-10 14:21 | NUR ---
REPORT GIVEN TO ZULEYKA WEEKS. WHO IS ASSUMING CARE OF PT.
--- NOTE | 2021-02-10 15:00 | NUR ---
Assumed care of this paitent at this time. Pt is resting in bed with no needs, on room air, states no pain. IVF ABX infusing WNL. G tube WNL, HANSA drain draining WNL serosanguinous fluid. Cohen removed by Magdalene GARDINER. Midline incision C/D/I, along with drain site dressings. Lung sounds clear bilaterally. No further needs now, call light in reach.
--- NOTE | 2021-02-10 15:30 | NUR ---
Pt up to BSC with 2PA for BM and small, unmeasured void. Pt able to pivot transfer and tolerates well. States no pain at this itme. No other needs, call light in reach
--- NOTE | 2021-02-10 16:08 | NUR ---
Patient talked with doctor briefly. Patient vitals, I&Os are complete. MAP was 64. RN has been notified. Ice water will be given as requested. Call light is in reach and there are no other requests.
--- NOTE | 2021-02-10 16:45 | NUR ---
Rounded on patient, IV pump alarming, error resolved. Dinner ordered, plan of care reviewed and pt is agreeable to all at this time. Call light in reach
--- NOTE | 2021-02-10 18:20 | NUR ---
PATIENT SITTING UP IN BED WORKING ON DINNER. VITALS AND I&O'S CHARTED. CALL LIGHT IN REACH. NO FURTHER NEEDS AT THIS TIME.
--- NOTE | 2021-02-10 19:15 | NUR ---
SHIFT REPORT FROM NURSE WEEKS. PT LAYING IN BED AWAKE, DENIES NEEDS AT THIS TIME. CALL LIGHT WITHIN REACH.
--- NOTE | 2021-02-10 19:50 | NUR ---
IN TO ASSIST PT TO THE BSC, PT VOIDED AND BACK TO BED, VITALS DONE, ICE WATER PROVIDED
--- NOTE | 2021-02-10 21:00 | NUR ---
IN ROOM FOR ASSESSMENT AND MEDS. PT APPEARS DROWSY BUT DOES ANSWER QUESTIONS APPROPRIATELY. PT REQUESTS PRN TYLENOL WHICH IS PROVIDED. HANSA DRAIN 5ML SEROSANGUINOUS DISCHARGE, GTUBE SCANT DRAINAGE IN BAG, MIDLINE BANDAGE UNCHANGED. LUNG SOUNDS CLEAR. PT DENIES FURTHER NEEDS AT THIS TIME. CALL LIGHT WITHIN REACH.
--- NOTE | 2021-02-10 22:30 | NUR ---
IN TO ASSIST PT TO THE BSC, PT BACK TO BED, NEW ATTENDS ON, NEW SCDS CUFFS IN PLACE DUE TO THE URINE SOILED, NO FURTHER NEEDS AT THIS TIME
--- NOTE | 2021-02-10 23:50 | NUR ---
CALL LIGHT ANSWERED. MIDDLE CARD TENDER REQUESTS ASSISTANCE IN PT ROOM. THIS RN ENTERS ROOM AND PT IS LAYING ON FLOOR, FACE DOWN, PROPPING HERSELF UP ON ELBOWS. THIS RN ASKED PT IF SHE HIT HER HEAD, PT REPLIES ON THE CUSHION OF THE RECLINER. THIS RN ASKED PT IF SHE HURTS ANYWHERE NEW OR IF SHE THINKS THAT SHE HIT ANYTHING ELSE DURING THE FALL. PT REPLIES NO. THIS RN AND MIDDLE CARD TENDER THEN TURN PT TO RT SIDE AND THEN ASSIST PT INTO SITTING POSITION. VSS STABLE. SMALL REDDENED AREA ON RT SCIENTOLOGIST, PT REPORTS SHE "CAN FEEL IT" BUT NO PAIN. PT AGAIN REPORTS NO PAIN IN ANY NEW AREAS. 3RD RN RETRIEVED, CHARGE NURSE INFORMED. PT TILTED SIDE TO SIDE TO MOVE MARIBETH SHEET UNDER PT. WITH 4 NURSING STAFF, PT IS LIFTED TO BED WITH MARIBETH. FULL ASSESSMENT PERFORMED. 2 SMALL BRUISES ON PT'S LEGS THAT APPEAR NEW. MIDLINE INCISION HAS SCANT ELOY RED BLOOD ON GAUZE AT DORSAL END OF INCISION; STOPS IMMEDIATELY. PT THEN ON BEDPAN TO TRY TO URINATE. MIDDLE CARD TENDER AND THIS RN STAY IN ROOM
--- NOTE | 2021-02-11 | NUR ---
THIS HYDROCHLORIC AREA SUPERVISOR IN TO ASSIST PT TO THE BSC, PT SITS UP AT THE EDGE OF THE BED, BSC SCOOTED UP TO THE EDGE, NEXT TO THE BED, PT STANDS AND PIVOTS TO BSC, BENDS FORWARD TO LOWER ATTENDS, THIS HYDROCHLORIC AREA SUPERVISOR STEPPED AROUND THE PT TO ASSIST WITH ATTENDS, PT SUDDENLY TUMBLES FORWARD AND FALLS, PT HITS HER HEAD, RIGHT TAOIST AREA ON THE CUSHON PART OF THE RECLINER, PT DID NOT HIT ANYTHING ELSE AND DOES NOT HURT IN ANY OTHER SPOTS, RN CALLED INTO THE FOR IMMEIDATE ASSISTENCE, ROLLED PT UP THE A SITTING POSITION, THIRD RN IN WITH A MARIBETH TRANSFER SHEET, CARTRIDGE MAKER IN TO ASSIST, HOYERED PT TO BED FROM OF THE FLOOR, BED BOND PROVIDED, PT UNBLE TO VOID, ICE WATER PROVIDED, PRIMARY RN ASSESSING PT AT THIS TIME, NO FURTHER NEEDS
--- NOTE | 2021-02-11 00:45 | NUR ---
CALL TO DR BATISTA TO INFORM HIM THAT PT HAD FALLEN. NO NEW ORDERS AT THIS TIME. PLEASE USE 2PA WHEN TRANSFERRING OR MOBILIZING PT.
--- NOTE | 2021-02-11 01:30 | NUR ---
IN WITH RN TO ASSIST PT TO THE BSC, 1-2P FWW, PT ABLE TO PIVOT AND STEP BACK TO THE BSC, VOIDED AND SMALL BM, PROVIDED NEW ATTENDS, PT BACK TO BED 1-2P FWW, NO FURTHER NEEDS AT THIS TIME
--- NOTE | 2021-02-11 02:28 | NUR ---
IN ROOM FOR 0200 MEDS. PT IS SLEEPING, DOES AWAKE BRIEFLY DURING INTERVENTION. CALL LIGHT AND BEDSIDE TABLE WITHIN REACH.
--- NOTE | 2021-02-11 03:01 | NUR ---
CALL LIGHT ANSWERED. 2PA FWW TO SBC. PT URINATES AND HAS SOFT BM. PT RETURNED TO BED, CALL LIGHT AND BEDSIDE TABLE WITHIN REACH.
--- NOTE | 2021-02-11 04:53 | NUR ---
IN TO ASSIST PT TO THE BSC, 2PA FWW PIVOT, PT BACK TO BED, VITALS, ICE WATER AND RM TIDELMAR, WHITEBOARD UPDATED, NO FURTHER NEEDS
--- NOTE | 2021-02-11 05:45 | NUR ---
IN ROOM TO ASSIST PT TO BSC. 2PA FWW. PT VOICES EXHAUSTION FROM HAVING TO GET UP SO OFTEN TO BSC. URINE OUTPUT EACH TIME IS +/-300ML. 0600 ABX HUNG, PT RETURNED TO BED, CALL LIGHT WITHIN REACH.
--- NOTE | 2021-02-11 07:05 | NUR ---
IN TO ASSIST PT TO THE BSC, 1PA FWW PIVOT, PT PROVIDED FRESH ATTENDS, BACK TO BED, CALL LIGHT IN REACH, NO FURTHER NEEDS AT THIS TIME
--- NOTE | 2021-02-11 07:05 | NUR ---
Report received from Carolynn GARDINER. Pt resting in bed with eyes closed at this time, respirations unlabored and even. No apparent needs, will continue plan of care.
--- NOTE | 2021-02-11 08:13 | NUR ---
THIS RN ATTEMPTED TO CALL pt's DAUGHTER ESTEBAN MISHRA REGARDING pt FALL EARLIER THIS SHIFT. UNABLE TO REACH DAUGHTER AT THIS TIME. VOICEMAIL LEFT AND INSTRUCTED DAUGHTER TO CALL HOSPITAL FOR UPDATE ON pt STATUS. DAYSHIFT LIGHT INDUSTRIAL SUPERVISORZULEYKA ENG.
--- NOTE | 2021-02-11 08:20 | NUR ---
PT WAS IN BED EATING BREAKFAST. THIS LAB COORDINATOR GAVE PT A WARM WASHCLOTH FOR THEIR FACE. WHITEBOARD WAS UPDATED. NO FURHTER NEEDS AT THIS TIME. CALL LIGHT IS WITHIN REACH.
--- NOTE | 2021-02-11 08:27 | NUR ---
Scheduled medications administered, assessment complete. G tube WNL, carafate administered and flushed gently, pt tolerates well. Dressings remain unchanged per report, old shadowing noted on gauze. HANSA drain WNL. IVF infusing, pt states feeling urinary frequency/urgency. Breakfast ordered, no other needs at this time as pt denies pain, nausea. Call light in reach.
--- NOTE | 2021-02-11 09:15 | NUR ---
New orders received from Georgie SOARES tube clamped. Actecote dressing removed, segundo to midline WNL, incision well approximated with no drainage noted. G tube, HANSA sites WNL. Pt updated on plan of care, agreeable to this. Encouraged to shower/ambulate, pt adamantly refuses at this time but will continue to reinforce.
--- NOTE | 2021-02-11 10:00 | NUR ---
stock speculator to administer tylenol, pt reports generalized pain at this time.
--- NOTE | 2021-02-11 12:00 | NUR ---
Rounded on patient, who is stating no pain or needs at this time. Pt is alert and oriented, cheerful, drains and dressings are WNL. Call light in reach, will continue to monitor.
--- NOTE | 2021-02-11 14:40 | NUR ---
Scheduled carafate administered via G tube and reclamped, WNL. Pt sitting up in chair and in good spirits, states having no pain and has no needs at this time. Pt reports tolerating her lunch well and this RN assists with oral care.
--- NOTE | 2021-02-11 16:23 | NUR ---
PT AMBULATED TO RESTROOM FOR VOID. ABLE TO SIT AND STAND WITH MINIMAL ASSITANCE.
--- NOTE | 2021-02-11 18:07 | NUR ---
PATIENT UP TO BATHROOM AND BACK TO CHAIR, 1PA FWW. PATIENT TOLERATED WELL. VITALS AND I&O'S CHARTED. FRESH WATER GIVEN. PATIENT COMPLAINING OF PAIN AND SAYS ITS AT ABOUT A 3 OUT OF 10 PAIN, RN NOTIFIED. CALL LIGHT IN REACH. NO FURTHER NEEDS AT THIS TIME.
--- NOTE | 2021-02-11 19:10 | NUR ---
SHIFT REPORT FROM NURSE WEEKS. PT REQUESTS SOUP; PARAMJIT GODINEZ SENT TO OBTAIN A SNACK FOR PT. NO FURTHER NEEDS AT THIS TIME. CALL LIGHT WITHIN REACH.
--- NOTE | 2021-02-11 20:28 | NUR ---
IN ROOM FOR ASSESSMENT AND MEDS. PT IS UP IN CHAIR EATING A SNACK. PT REPORTS OVERALL ACHE/PAIN BUT DECLINES PAIN MEDS AT THIS TIME. BLE 1+ EDEMA, CMS INTACT, BOWEL TONES ACTIVE. HANSA DRAIN 25ML SEROSANGUINOUS FLUID. CARAFATE IN GTUBE. LUNG SOUNDS CLEAR. PT TO CALL WHEN SHE WANTS TO RETURN TO BED. CALL LIGTH WITHIN REACH
--- NOTE | 2021-02-11 22:15 | NUR ---
in room to take pt to bed. pt request prn tylenol for 3/10 abd pain. scds on, call light within reach.
--- NOTE | 2021-02-12 02:04 | NUR ---
call light answered. sba fww to toilet to void. 0200 carafate administered at this time. pt back to bed. scds on. call light within [facility]. no further needs at this time
--- NOTE | 2021-02-12 05:40 | NUR ---
CALL LIGHT ANSWERED.CHARGE NURSE IN ROOM TO TAKE PT TO TOILET AND TO DO VITALS.
--- NOTE | 2021-02-12 08:25 | NUR ---
Scheduled medications administered, carafate flushed into G tube with no difficulty. Assessment complete. Dressings removed surrounding Hansa drain and G tube, 4x4 gauze piece applied around g tube insertion as small amount yellow drainage noted. HANSA WNL. Midline incision closed with segundo, well approximated with no redness or drainage noted. Pt ambulates to BR with FWW and 1PA and tolerates well. She has 1 incontinent void as she walks to BR, small BM in BR. Skin visualized to back and is WNL. Central line hep locked and flushes WNL. Breakfast in room, pt has no further needs at this time. Call light in reach.
--- NOTE | 2021-02-12 08:58 | NUR ---
PATIENT SITTING UP IN BED WATCHING TV. PATIENT IS VERY HAPPY THIS MORNING AND STATES SHE IS "DOING GREAT!" CALL LIGHT IN REACH. NO FURTHER NEEDS AT THIS TIME
--- NOTE | 2021-02-12 09:37 | NUR ---
PATIENT IN BED WATCHING TV. PATIENT COMPLAINING OF STOMACHE PAIN AFTER EATING, TRIED TO GET PATIENT TO AMBULATE TO SEE IF THAT WOULD HELP, PATIENT REFUSED AND ASKED FOR JYOTI RN NOTIFIED. VITALS AND I&O'S CHARTED. FRESH WATER GIVEN. AGREED TO SHOWER LATER. CALL LIGHT IN REACH. NO FURTHER NEEDS AT THIS TIME.
--- NOTE | 2021-02-12 10:16 | NUR ---
ADMINISTERED TYLENOL PER PT REQUEST. ADVISED THAT SHE NEEDS TO WALK IN THE HEATH PER DR ORDER AND SHE STATED "YEAH AND HE WANTS ME TO SHOWER TOO" REMINDED THAT SHE NEEDS TO DO ALL OF THE THINGS TO GET BETTER AND GO HOME.
--- NOTE | 2021-02-12 10:24 | NUR ---
PATIENT UP TO BATHROOM FROM BED, 1PA FWW. MAX CARE DONE. PATIENT THEN UP TO AMBULATE IN HALLWAY, 1PA FWW. PATIENT AMBULATED FAR 2 ROOMS PASSED HER ROOM AND BACK TO HER ROOM AND TO CHAIR. PATIENT TOLERATED IT WELL BUT WAS TIRED WHEN SHE GOT BACK TO ROOM. WARM BLANKET GIVEN. FRESH WATER GIVEN. CALL LIGHT IN REACH. NO FURTHER NEEDS AT THIS TIME.
--- NOTE | 2021-02-12 11:35 | NUR ---
Call light answered, in patient's room to assist with phone use/calling daughters. No other needs at this time.
--- NOTE | 2021-02-12 14:30 | NUR ---
Administered patient's carafate, she tolerates well. Assessment complete. Pt has no needs and states feeling well. Call light in reach.
--- NOTE | 2021-02-12 15:07 | NUR ---
PATIENT IN CHAIR WATCHING TV. VITALS AND I&O'S CHARTED. CALL LIGHT IN REACH. NO FURTHER NEEDS AT THIS TIME.
--- NOTE | 2021-02-12 18:34 | NUR ---
PATIENT IN CHAIR EATING DINNER. FRESH WATER GIVEN. VITALS AND I&O'S CHARTED. CALL LIGHT IN REACH. NO FURTHER NEEDS AT THIS TIME.
--- NOTE | 2021-02-12 20:12 | NUR ---
REPORT RECEIVED FROM ZULEYKA WEEKS. pt RESTING IN CHAIR AWAKE. REQUESTING PHONE AUXILIARY PLANT OPERATOR AND HELP WITH FINDING WALLET. CALL LIGHT WITHIN REACH.
--- NOTE | 2021-02-12 22:10 | NUR ---
pt UP IN CHAIR, TALKING ON PHONE WITH DAUGHTER. CELL PHONE CHARGING. FAMILY HAS pt'S WALLET. ASSESSMENT COMPLETE. pt DENIES ANY PAIN. INCISION CDI CESIA, OPEN TO AIR. HANSA DRAIN WITH MINIMAL SEROSANGUINOUS DRAINAGE. G TUBE FLUSHED WITH CARAFATE ORDERED, TAP WATER FLUSH, WNL. TRIPLE LUMEN CENTAL LINE HEP LOCKED, BRISK BLOOD RETURN X 3 LUMENS. 1PA WITH FWW TO RESTROOM FOR VOID AND SMALL BM. ASSISTANCE WITH WIPING REQUIRED. pt BACK IN BED. SCDS ON. CALL LIGHT IN REACH. ICE WATER PROVIDED. LIGHTS OFF IN ROOM.
--- NOTE | 2021-02-12 22:30 | NUR ---
PATIENT CALLED FOR WARM BLANKET. PROVIDED.
--- NOTE | 2021-02-13 00:05 | NUR ---
CALL LIGHT ANSWERED. 1PA WITH FWW TO RESTROOM, INCONTINENT VOID IN ATTENDS, SMALL CLEAR YELLOW VOID IN TOILET. NEW ATTENDS IN PLACE. pt ABLE TO WHIPE INDEPENDENTLY. BACK IN BED. SCDS IN PLACE. CALL LIGHT IN REACH.
--- NOTE | 2021-02-13 01:33 | NUR ---
CALL LIGHT ANSWERED. 1PA WITH FWW TO RESTROOM FOR VOID AND BACK TO BED. SMALL INCONTINENCE IN ATTENDS. NEW ATTENDS IN PLACE. CALL LIGHT IN REACH. SCDS ON.
--- NOTE | 2021-02-13 03:10 | NUR ---
pt SLEEPING, AWAKENS TO VOICE. G TUBE FLUSHED WITH CARAFATE, TAP WATER FLUSH. pt UP TO RESTROOM 1PA WITH FWW. ABLE TO TRANSFER SELF OUT OF BED INDEPEDENTLY. IN RESTROOM AT THIS TIME FOR VOID AND BM. VERBALIZES UNDERSTANDING TO USE CALL LIGHT WHEN FINISHED.
--- NOTE | 2021-02-13 03:15 | NUR ---
CALL LIGHT ANSWERED. 1PA WITH FWW BACK TO BED FROM RESTROOM. ASSESSMENT COMPLETE. BOWEL TONES ACTIVE, ABD SOFT, NONTENDER W PALPATION. MIDLINE INCISION CDI WITH CESIA. HANSA DRAIN WITH MINIMAL SEROSANGUINOUS FLUID, SMALL AMT SEROSANGUINOUS DRAINAGE AT INSERTION SITE. SCDS ON. ICE WATER PROVIDED. CALL LIGHT IN REACH.
--- NOTE | 2021-02-13 06:15 | NUR ---
pt UP FREQUENTLY TO RESTROOM FOR VOID. 1PA WITH FWW. SOME INCONTINENCE DUE TO URGENCY. DENIES ANY PAIN THROUGHOUT SHIFT. MIDLINE INCISION CDI WITH CESIA. HANSA DRAIN WITH 18 MLS SS FLUID THIS SHIFT. G TUBE CLAMPED, FLUSH WITH CARAFATE SLURRY ORDERED WNL. BOWEL TONES ACTIVE X 4, ABD SOFT, MULTIPLE SMALL BMS. USING CALL LIGHT APPROPRIATELY. SCDS ON THROUGHOUT SHIFT.
--- NOTE | 2021-02-13 07:50 | NUR ---
Scheduled medications administered, assessment complete. Pt states she is feeling very well this morning with no pain, nausea. G tube clamped WNL, NATHALIE with no drainage. HANSA drain scant drainage, site WNL. Midline well approximated, segundo ROLLED HAM LACER with no drainage. Bowel tones active, pt reports having regular bowel movements and voiding WNL. alert and oriented, on room air. Discussed with patient plan of care for discharge soon, she is generally agreeable but feels she "can't do everything for herself yet". This RN reassures and educates about current condition and care goals.
--- NOTE | 2021-02-13 09:05 | NUR ---
Patient recieved breakfast from dietary. Patient was very active in washing her own face and hands with a warm wash cloth. Patient mixed fruit was ordered. Patient said they had a shower yesterday and refused a shower. There are no other requests at this time.
--- NOTE | 2021-02-13 10:00 | NUR ---
Spoke with Yeni. She cont. to plan for dc to home. States she can get out of the chair on her own and walk to the Bathroom with a walker. She does states her house is small and she will not be able to use the walker. In the past she used a cane. I will ask PT to work with a cane with this pt. She would like HH on dc from [facility]. I will notify Dr. Valle/Katina.
--- NOTE | 2021-02-13 10:02 | NUR ---
Patient is sitting in chair, SBA, FWW. Patient talked with case management about working with physical therapy with a cane instead of a FWW. Patient via bathroom 1PA, SBA, FWW, voided 250 ml. Call light is in reach. Patient is wondering if she can have her leg SCDs off for a little while. She is wondering if her HANSA tube can be emptied. She is looking for her phone, but I can't see it in the room being charged. There are no other requests and the call light is in reach. Gown has been changed. B/P 123/56, MAP 72, Resperations 25. The RN will be notified.
--- NOTE | 2021-02-13 11:30 | NUR ---
Rounded on patient who resting and watching tv. She denies pain, or needs. On room air, alert and oriented, call light in reach.
--- NOTE | 2021-02-13 13:01 | NUR ---
Call light answered, pt requests PRN tylenol, administered. Dr Ambriz in room at this time to assess patient, removes HANSA drain. Incision C/D/I, G tube clamped and WNL. Pt has no needs and states feeling well, tolerated lunch well. Call light in reach, will review new orders
--- NOTE | 2021-02-13 14:43 | NUR ---
Patient vitals, I&Os are complete. Call light is in reach. Patieint is in her chair.
--- NOTE | 2021-02-13 15:00 | NUR ---
Scheduled carafate administered and patient educated regarding med administration through g tube, verbalizes understanding of how to make slurry, pull up in syringe, pinch g tube, uncap and slowly flush in med followed by plain water flush and recap of tube. She watches this RN perform this and states will try a hands-on attempt tonight with med pass. Pt states no other needs at this time, call light in reach.
--- NOTE | 2021-02-13 19:30 | NUR ---
REPORT RECEIVED FROM ZULEYKA WEEKS. pt UP IN CHAIR. ON RA. PACKAGE CLERK NOW IN ROOM.
--- NOTE | 2021-02-13 20:23 | NUR ---
CALL LIGHT ANSWERED. SBA FROM CHAIR TO BATHROOM TO BED USING WALKER. ATTENDS AND GOWN CHANGED. FRESH ICE WATER REFILLED AND WARM BLANKET PROVIDED. V/S AND I&O's DONE AND DOCUMENTED.
--- NOTE | 2021-02-13 20:56 | NUR ---
pt AWAKE WATCTHING TV. ASSESSMENT COMPLETE. BANDAID WITH SMALL AMT SHADOWING ON HANSA REMOVAL SITE. MIDLINE INCISION CDI WITH CESIA. G TUBE WITH SMALL AMT SEROUS FLUID, GAUZE AROUND INSERTION SITE. pt EDUCATION PROVIDED ON FLUSHING G TUBE. pt AGREES TO TRY IN AM HOURS, RELUCTANT AT THIS TIME. BOWEL TONES ACTIVE X 4, ABD SOFT, NONTENDER WITH PALPATION. pt DENIES ANY PAIN. CENTRAL LINE FLUSHED WNL, GOOD BLOOD RETURN X 3 LUMENS, HEPARIN LOCKED WNL. CALL LIGHT IN REACH.
--- NOTE | 2021-02-13 22:07 | NUR ---
PT REQUESTED SOMETHING TO HELP HER SLEEP. STATED SHE HAS BODY ACHES, TYLENOL GIVEN, FRESH ICE WATER WELL.
--- NOTE | 2021-02-13 23:02 | NUR ---
ASSISTED TO THE BATHROOM AND BACK TO BED. CHANGED GOWN DUE TO GOT SOILED FROM SURGERY SITE LEAKAGE. PRIMARY RN CHANGED THE DRESSING.
--- NOTE | 2021-02-13 23:05 | NUR ---
BANDAID ON HANSA LAP SITE CHANGED, SEROSANGUINOUS DRAINAGE DRAINING UNDER BANDAID, SMALL AMT. pt DENIES ADDITIONAL NEEDS. BACK IN BED AFTER AMBULATING TO RESTROOM FOR VOID. PARAMJIT CALVIN CHANGING GOWN. CALL LIGHT IN REACH.
--- NOTE | 2021-02-13 23:30 | NUR ---
CALL LIGHT ANSWERED. PATIENT STATED "I WET THE BED". WIPED/CLEANED UP CHANGED ATTEND, WHITE CHUCKS AND GOWN.
--- NOTE | 2021-02-14 00:42 | NUR ---
ASSISTED TO THE BATHROOM AND BACK TO BED. ICE WATER REFILLED. CHANGED NEW GOWN.
--- NOTE | 2021-02-14 01:17 | NUR ---
CHECKED ON pt. RESTING IN BED AWAKE WATCHING TV. NO DISTRESS NOTED.
--- NOTE | 2021-02-14 02:41 | NUR ---
CALL LIGHT ANSWERED. SBA WITH FWW TO RESTROOM FOR VOID AND BACK TO BED. SCDS ON. ASSESSMENT COMPLETE. pt ABLE TO FLUSH OWN G TUBE WITH PROMPTING. SOME DIFFICULTY WITH SYRINGE pt C/O NUMBNESS IN RIGHT HAND/FINGERS. pt ABLE TO FLUSH TUBE EFFECTIVELY. HANSA SITE WITH SMALL AMT SEROSANGUINOUS DRAINAGE UNDER BANDAID, ABD PAD IN PLACE. G TUBE SITE WITH SEROUS FLUID LEAKING, GAUZE PADS IN PLACE. ICE WATER PROVIDED. CALL LIGHT IN REACH.
--- NOTE | 2021-02-14 04:00 | NUR ---
PT CALLED, SBA TO BATHROOM, BACK TO BED. DEPENDENT ON GETTING LEGS INTO BED. ALL PERSONAL SUPPLIES WITHIN REACH.
--- NOTE | 2021-02-14 05:01 | NUR ---
CALL LIGHT ANSWERED. SBA TO RESTROOM FOR VOID WITH FWW AND BACK TO BED. SCDS ON. SS DRAINAGE NOTED FROM FORMER HANSA SITE. BANDAID CHANGED, ABD PAD IN PLACE FOR DRAINAGE. VSS. WATER AND PERSONAL SUPPLIES IN REACH. NO ADDITIONAL REQUESTS.
--- NOTE | 2021-02-14 05:12 | NUR ---
PT CALLED, REQUESTED TYLENOL FOR 2/10 ABDOMINAL PAIN. OFFERED WARM BLANKET SHE REFUSED. FRESH ICE WATER GIVEN.
--- NOTE | 2021-02-14 05:15 | NUR ---
PT CALLED, REQUESTED WARM BLANKET. GIVEN, SHE GIGGLED, SAID WELL I DIDN'T SEE IT (THE WARM BLANKET), BUT NOW I HAVE SOME CHILLS.
--- NOTE | 2021-02-14 07:33 | NUR ---
REPORT RECEIVED ZULEYKA DUNN. PT UP TO CHAIR. PT REPORTS NO PAIN OR NAUSEA. PT SMILING AND WATCHING TV. PT DENIES ADDITIONAL REQUESTS OR COMPLAINTS AND STATES "I JUST WANT MY BREAKFAST." CALL LIGHT WITHIN REACH.
--- NOTE | 2021-02-14 08:18 | NUR ---
MORNING ASSESSSMENT AND MEDICATION DUE. PT REPORTS SHE IS HOPING TO GO HOME SOON BUT STATES SHE IS "NERVOUS ABOUT MOVING AROUND AND HOW THINGS WILL GO WITH THE FOOD AND STUFF." PT DENIES PAIN AND NAUSEA THIS MORNING, PT FINISHED WITH BRAKFAST, ABLE TO EAT 100% OF HER MEAL. DRESSING TO CENTRAL LINE REMAINS C/D/I. ALL LUMENS FLUSHED AND HEPARIN LOCKED PER PROTOCOL, ALCOHOL CAPS APPLIED. PT CONTINUES TO REPORT WEAKNESS TO WHEN GETTING UP. PT ENCOURAGED TO SPEND MORE TIME OUT OF CHAIR/BED TODAY. PT AGREES, GOALS SET. STAND BY ASSIST WITH FRONT WHEEL WALKER UP TO RESTROOM. PT VOIDS WITHOUT ISSUE. PT REPORTS REGULAR BOWEL MOVEMENTS INCLUDING ONE EARLIER THIS MORNING. PT REPORTS BOWEL MOVEMENTS ARE "VERY SOFT." PT CONTINUES TO REPORT NUMBNESS IN RIGHT HAND. MIDLINE INCISION C/D/I WITH EDGES WELL APROXIMATED. CESIA IN PLACE. OLD HANSA DRAIN SITE CONTINUES TO LEAK SEROUS ANGUINOUS FLUID. NEW GAUZE APPLIED. ABD BOND IN PLACE FOR PT COMFORT. G-TUBE SITE WNL. PT DEMONSTRATES CORRECT PROCEEDURE FOR FLUSHING G-TUBE AND GIVING CARAFATE MEDICATION WITH ASSISTANCE FROM THIS RN. G-TUBE FLUSHED WITH 40ML TAP WATER. G-TUBE CLAMPED AT THIS TIME. NO ADDITIONAL REQUESTS OR COMPLAINTS. CALL LIGHT WIHTIN REACH. BED RAILS UP.
--- NOTE | 2021-02-14 09:09 | NUR ---
THIS RN TO ROOM TO CHECK ON PT. PT UP TO CHAIR. PT REPORTS FEELING TIRED AFTER NO SLEEP LAST NIGHT. PT ENCORUAGED TO STAY AWAKE TODAY SO SHE CAN SLEEP BETTER AT NIGHT. LIGHTS ON. CURTAINS OPEN. PT PERFORMS SELF ORAL CARE. NO ADDIITONAL REQUESTS OR COMPLAINTS. PT CONTINUES TO DENY PAIN AND NAUSEA. CALL LIGHT ES ERNST.
--- NOTE | 2021-02-14 09:45 | NUR ---
Spoke with PT and they state pt failed walking with a cane and cannot go home without using a walker. In and spoke with Yeni and discussed how she feels about dc in the next day or so. She states she is aprehensive about discharge. Is concerned about going home. Discussed again using a walker in her home and she states there just isn't enough room. We then discussed SNFs in the area and updated I cannot send her here in town as SNF is not currently accepting new pts. She would like to go to [place] as it is the next closest town. I pulled up [facility] on my phone for her to view the rooms. First choice is [facility], second choice to [facility]. Informed I will call and check for bed availability.
--- NOTE | 2021-02-14 10:03 | NUR ---
THIS RN TO ROOM TO CHECK ON PT. PT FINISHED WITH PHYSICAL THERAPY. PHYSICAL THERAPIST, LUDWIN, STATES PT IS UNABLE TO AMBULATE SAFELY WITH ONLY A CANE AND IS UNABLE TO USE A WALKER AT HOME. JM, CASE MANAGEMENT, TO BEDSIDE TO TALK WITH PT. PT AGREES WITH JM THAT SHE MAY WANT TO DO REHAB FOR A LITTLE WHILE TO ENSURE SHE IS STRONG ENOUGH WHEN SHE GOES HOME. PT UP TO RECLINER. DENIES PAIN AND NAUSEA. NO ADDITIONAL REQUESTS OR COMPLAINTS. CALL LIGHT WITHIN REACH.
--- NOTE | 2021-02-14 10:30 | NUR ---
Called and left a message for [facility] asking if they have any beds available.
--- NOTE | 2021-02-14 10:36 | NUR ---
Patient would like to inform her daughters about that she may go to rehab in [place]. Patient SBA, bathroom and to chair. Vitals, I&Os are complete. Call light is in reach. Her lunch was ordered by a INCINERATOR PLANT GENERAL SUPERVISOR.
--- NOTE | 2021-02-14 12:10 | NUR ---
Received return call from [facility], they do have beds. Updated pt was covid + in January. She states she would need to be 21 days past her initial covid test. Informed I will look up the labs and fax her the chart. I am unable to find the original lab. Spoke with Carmen, correspondence renew clerk, and she was able to pull the lab from a different site. Pts original + test was Jan 19. This makes her 26 days out.
--- NOTE | 2021-02-14 12:41 | NUR ---
Faxed face sheet, covid initial test 01/19 and retest on 02/05, [facility] DC Summary of 01/27- admission, readmit note 02/04, surgery notes, progress notes from surgeon and hospitalist, PT eval and notes, and note showing pt has not been vaccinated to [facility]. She called and confirmed she recieved referal.
--- NOTE | 2021-02-14 12:58 | NUR ---
THIS RN TO ROOM TO CHECK ON PT. PT UP TO CHAIR EATING LUNCH. PT ASSISTED WITH USING TELEPHONE TO CALL FAMILY. PT DENIES PAIN AND NAUSEA. NO ADDITIONAL REQUESTS OR COMPALINTS. CALL CLAUDETTE ERNST.
--- NOTE | 2021-02-14 14:50 | NUR ---
AFTERNOON ASSESSMENT AND MEDICATION DUE. PT UP TO CHAIR. PT REPORTS 3/10 ABDOMINAL PAIN WITH COUGH, REPORTS 2/10 WITHOUT COUGH. SEE MAR FOR MEDICATION GIVEN. PT DENIES NAUSEA. STAND BY ASSIST UP TO RESTROOM. PT NEEDS 1 PERSON ASSISTANCE FOR MAX CARE, UNDERWARE AND WITH STANDING UP FROM THE TOILET. PT ENCOURAGED TO AMBULATE IN HEATH, PT AGREES. PT AMBULATES TO MAIN NURSES STATION WITH STAND BY ASSIST AND FRONT WHEEL WALKER. LUNG SOUNDS CLEAR. PT CONTINUES TO HAVE EDEMA IN BLE, UNCHANGED. PT REPORTS "MY HANDS ARE SWOLLEN BECAUSE THEY ARE NOT USUALLY THIS FAT." PT ALSO CONTINUES TO REPORT NUMBNESS IN RIGHT HAND IN PINKY, RING, AND MIDDLE FINGERS. BOWEL TONES HEARD. MEDICATION GIVEN THROUGH G-TUBE. PT ASSISTS BUT IS NOT ABLE TO DO ENTIRE PROCESS ON HER OWN. PT HAS TROUBLE KNOWING WHEN TO CAP THE TUBE AND WHEN TO PUT IN FLUID. G-TUBE FLUSHED WITH 40ML TAP WATER. YELLOW DRAINAGE NOTED FROM GTUBE SITE. CLEANED WITH WATER, GAUZE IN PLACE. MIDLINE INCISION LEAKING SEROUSANGUINOUS FLUID FROM CAUDAL END. GAZUE APPLIED FOR PTS CONFORT. OLD HANSA DRAIN SITE CONTINES TO LEAK SERIOUSANGUINOUS FLUID WELL, GAUZE IN PLACE. EDGES TO MIDLINE INCISION WELL APROXIMATED. CESIA IN PLACE. PT BACK TO BED AFTER WALK FOR A REST. HEAD OF BED ELEVATED TO 30 DEGREES. LEGS ELEVATED, SCD'S IN PLACE. PT DENIES ADDITIONAL REQUESTS OR COMPLAINTS. CALL LIGHT WITHIN REACH. BED RAILS UP.
--- NOTE | 2021-02-14 14:51 | NUR ---
Patient vitals, I&Os are complete. RN is working with patient. Call light is in reach.
--- NOTE | 2021-02-14 16:10 | NUR ---
THIS RN TO ROOM TO CHECK ON PT. PT RESTING IN BED WITH EYES CLOSED. RESPIRATIONS EVEN AND UNALBORED. PT ALLOWED TO REST. CALL LIGHT WITHIN REACH. BED RAILS UP.
--- NOTE | 2021-02-14 16:13 | NUR ---
PT POST OP DAY 8 AFTER DUODENAL ULCER REPAIR AND BILE LEAK REPAIR. PT UP WITH 1 PERSON ASSIST AND FRONT WHEEL WALKER, ENCOURAGED TO AMBULATE, UP TO AMBUALTE IN HEATH X2 SO FAR THIS SHIFT, TOELRATING WELL BUT STILL NEEDING ASSISTANCE WITH ADL CARES. PT TOLERATING 60G CARB DIET WITH GOOD APPITITE. G-TUBE CAMPLED BUT FOR CARFATE ADMINISTRATION. YELLOW DRAINAGE NOTED FROM G-TUBE INCERTION SITE. MID LINE INCISION HAS WELL APROXIMATED EDGES WITH CESIA INTACT. SERIOUSANGUINOUS DRAINAGE AT CAUDAL END THIS SHIFT, GAUZE IN PLACE. OLD HANSA DRAIN INCERTION SITE DRAINING SERIOUS ANGUINOUS DRAINAGE, GAUZE IN PLACE. LAP SITE WITH 1 STAPLE IN RIGHT ABDOMEN WNL, NO DRAINAGE NOTED, EDGES WELL APROXIMATED. PT SHOWERED THIS SHIFT. PRN TYLENOL GIVEN FOR ABDOMINAL PAIN. PT VOIDING QUANTITY SUFFICIENT. PT USES CALL LIGHT AND MAKES NEEDS KNOWN.
--- NOTE | 2021-02-14 16:45 | NUR ---
PT FINISHED WITH SHOWER. PT BACK TO BED. PERFORMED HER OWN ORAL CARE. PT REPORTS FEELING STEADY ON FEET AND DENIES SHORTNESS OF BREATH DURING SHOWER, REPORTS "JUST FEELING REALLY TIRED." IV WNL, REMAINS SALINE LOCKED WITH ALCOHOL CAP IN PLACE. EDUCATION DONE WITH PT REGARDING PLAN OF CARE, I.S. USE AND PRONING. PT DEMONSTRATES USE OF I.S. REACHING 500ML X5. PT DEMONSTRATES UNDERSTANDING OF PRONING PROTOCOL BY LYING ON RIGHT SIDE. NO ADDITIONAL REQUESTS OR COMPLAINTS. CALL LIGHT WITHIN REACH. BED RAILS UP.
--- NOTE | 2021-02-14 17:00 | NUR ---
THIS RN TO ROOM TO CHECK ON PT. PT AWAKE AND SITTING UP IN BED. PT REPORTS LEG CRAMP IN LEFT UPPER LEG. 1 PERSON ASSIST WITH FWW UP TO CHAIR FOR DINNER. PT CONTINUES TO COMPLAIN OF NUMBNESS IN RIGHT HAND/FINGERS. PT OTHERWISE DENIES PAIN OR DISCOMFORT. PT EATING DINNER. NO ADDITIONAL REQUESTS OR COMPLAINTS. CALL LIGHT WITHIN REACH.
--- NOTE | 2021-02-14 17:37 | NUR ---
DINNER ARRIVED. STAND BY ASSIST UP TO CHAIR. PT ON 4L O2 BY NC FOR AMBULATION IN ROOM AND THEN WEANED BACK TO 2L. OXGYEN SATURATIONS MAINTANING ABOVE 90%. PT DENIES PAIN AND NASEA. NO ADDITIONAL REQUESTS OR COMPLAINTS. CALL LIGHT WITHIN REACH.
--- NOTE | 2021-02-14 17:51 | NUR ---
CALL PLACED TO JESSE, PTS DAUGHTER, FOR UPDATE. JESSE VERBALIZES UNDERSTANDING OF PLAN OF CARE AND STATES HER QUESTIONS HAVE BEEN ANSWERED. JESSE AGREES THAT A LONGTERM FACILITY WOULD BE THE BEST PLACEMENT FOR PT AT THIS TIME.
--- NOTE | 2021-02-14 18:21 | NUR ---
CALL PLACED TO DR. BATISTA FOR UPDATE ON PTS STATUS/REQUESTS/COMPLAINTS. NO ANSWER AT THIS TIME. AWAITING CALL BACK.
--- NOTE | 2021-02-14 18:50 | NUR ---
THIS RN TO ROOM TO CHECK ON PT. PT REMAINS UP TO CHAIR. PT DENIES PAIN AND NAUEA BUT FOR "MY LEG STILL CRAMPS SOMETIMES." PT POINTS TO LEFT UPPER LEG. PT DENIES NEED FOR MEDICATION. PT STATES "THEY JUST CAME IN AND CHANGED MY GAUZE." NEW GAUZE NOTED TO OLD HANSA DRAIN SITE AND CAUDAL END OF MIDLINE INCISION, GAUZE C/D/I. PT DENIES ADDITIONAL REQUESTS OR COMPLAINTS. CALL LIGHT WITHIN REACH. PT ENCOURAGED TO AMBULATE AGAIN TONIGHT PRIOR TO BED.
--- NOTE | 2021-02-14 18:52 | NUR ---
Vitals, I&Os are done. BP was 107/49. The RN has been notified.
--- NOTE | 2021-02-14 18:59 | NUR ---
GUAZE TO LOWER HALF OF ABDOMINAL INCISION WAS SATURATED WITH SEROSANGUIOUS DRAINAGE AND REMOVED. GUAZE AND TAPE DRESSING REPLACED.
--- NOTE | 2021-02-14 19:21 | NUR ---
REPORT GIVEN TO ZULEYKA PIKE, WHO IS ASSUMING CARE OF PT.
--- NOTE | 2021-02-14 19:54 | NUR ---
PATIENT SITTING UP IN THE BEDSIDE ARMCHAIR WATCHING TV. PATIENT HAS NO CURRENT CARE NEEDS. CALL LIGHT IS IN REACH.
--- NOTE | 2021-02-14 20:30 | NUR ---
PATIENT GIVEN PM MEDS AND G-TUBE CARAFATE GIVEN PER GRAVITY AND 50MLS OF WATER. PATIENT HAS NO OTHER NEEDS AT THIS TIME AND WILL GET UP TO WALK IN AWHILE BEFORE BED. PATIENT REMAINS IN THE BEDSIDE ARMCHAIR AND CALL LIGHT IS IN REACH.
--- NOTE | 2021-02-14 21:10 | NUR ---
IN TO ASSIST PT UP TO THE TOILET, SBA FWW, PT BACK TO THE CHAIR, NO FURTHER NEEDS
--- NOTE | 2021-02-14 21:50 | NUR ---
ASSISTED PT TO AMBULATE HALLWAY, RM 114 TO RN STATION AND BACK TO RM, UP TO THE CHAIR, ICE WATER PROVIED, NO FURTHER NEEDS AT THIS TIME
--- NOTE | 2021-02-14 22:07 | NUR ---
CALL LIGHT ANSWERED. PRN TYLENOL ADMINISTERED FOR 2-3/10 HEADACHE. pt RESTING IN CHAIR EATING FRUIT. MELATONIN ADMINISTERED REQUESTED. CALL LIGHT IN REACH. REQUESTING TO SIT IN CHAIR AT THIS TIME.
--- NOTE | 2021-02-14 22:20 | NUR ---
IN TO ASSIST PT TO BED, RN CALLED TO CHECK DRESSING, THIS ESOL TEACHER ASSISTANT PROVIDE PT WITH NEW GOWN AND WARM BLANKET, NO FURTHER NEEDS AT THIS TIME
--- NOTE | 2021-02-14 22:25 | NUR ---
NEW 4x4 DRESSING TAPED OVER UMBILICUS TO COLLECT DRAINAGE. OTHER DRESSINGS C/D/I. PATIENT HAD NO OTHER CARE NEEDS AND CALL LIGHT IS IN REACH.
--- NOTE | 2021-02-14 23:04 | NUR ---
CALL LIGHT ON, PT IS FEELING COLD, WARM BLANKETS PROVIDED, TEMP TAKEN, 97.5 AT THIS TIME, NO FURTHER NEEDS
--- NOTE | 2021-02-15 00:40 | NUR ---
IN TO ASSIST PT TO THE TOILET, SBA WITH FWW, PT REQUIRES SOME ASSIST WITH STANDING AT TIMES, PT BACK TO BED, NO FURTHER NEEDS AT THIS TIME
--- NOTE | 2021-02-15 01:00 | NUR ---
PATIENT RESTING QUIETLY IN BED, EYES CLOSED, RESPIRATIONS ARE REGULAR AND EVEN, AND CALL LIGHT IS IN REACH.
--- NOTE | 2021-02-15 02:57 | NUR ---
PATIENT GIVEN HER CARAFATE WITH 50MLS WARM WATER BY GRAVITY IN HER G-TUBE. PATIENT HAS NO OTHER CARE NEEDS AT THIS TIME AND IS WATCHING TV. CALL LIGHT IS IN REACH.
--- NOTE | 2021-02-15 03:17 | NUR ---
IN TO TAKE SCDS OFF PER PT REQUEST, RN APPROVED PT TO HAVE A BREAK FROM SCDS USE, FRESH ICE WATER FILLED AT THIS TIME, NO FURTHER NEEDS
--- NOTE | 2021-02-15 04:00 | NUR ---
IN TO ASSIST PT TO THE TOILET, SBA FWW, PT HAD VOIDED AND HAD A BM, PT BACK TO BED, NOTIFIED RN OF DRESSING SATURATION, NO FURTHER NEEDS AT THIS TIME
--- NOTE | 2021-02-15 04:45 | NUR ---
IN TO ASSIST PT WITH BLANKETS, TOOK PT VITALS, NO FURTHER NEEDS AT THIS TIME
--- NOTE | 2021-02-15 05:18 | NUR ---
PATIENT DENIES ANY PAIN AND AM ASSESSMENT IS COMPLETE. NEW 4x4 DRESSING PLACED OVER UMBILICAL AREA OF MIDLINE INCISION DUE TO CONTINUED SEROUS DRAINAGE. PATIENT HAS NO OTHER CARE NEEDS AT THIS TIME. CALL LIGHT IS IN REACH.
--- NOTE | 2021-02-15 05:25 | NUR ---
IN TO ASSIST PT TO THE TOILET, NO FURTHER NEEDS AT THIS TIME
--- NOTE | 2021-02-15 07:17 | NUR ---
REPORT RECEIVED FROM ZULEYKA PIKE. PT RESTING IN BED. PT DENIES PAIN AND NAUSEA. PT REQUESTS BLIDNS TO BE OPENED. BLINDS OPEN. PT DENIES ADDITIONAL REQUESTS OR COMPLAINTS AT THIS TIME. GAUZE TO CAUDAL END OF MIDLINE INCISION 50% SATURATED WITH SERIOUS ANGUINOUS FLUID. GAZUE OF OLD HANSA SITE WNL. G-TUBE CLAMPED. NO ADDITIONAL REQUESTS OR COMPLAINTS. CALL LIGHT WITHIN REACH. BED RAILS UP.
--- NOTE | 2021-02-15 07:27 | NUR ---
PT CALL LIGHT ON. PT REQUESTS ASSISTANCE UP TO REST ROOM. STAND BY ASSIST UP TO RESTROOM. PT VOIDS AND HAS SMALL SOFT BOWEL MOVEMENT. PT CONTINUES TO NEED ASSISTANCE STANDING FROM TOILET AND WITH MAX CARE. PT ABLE TO PULL UP HER OWN UNDERWARE TODAY. PT UP TO CHAIR FOR BREAKFAST. WARM BLANKET PROVIDED. PT REPORTS 1/10 ABDOMINAL PAIN WITH AMBULATION AND MORNING ACTIVITIES. DENIES NEED FOR MEDICATION AT THIS TIME STATING "MAYBE IN A LITTLE WHILE." CALL LIGHT WITHIN REACH. NO ADDITIONAL REQUESTS OR COMPLAINTS.
--- NOTE | 2021-02-15 08:24 | NUR ---
MORNING ASSESSMENT AND MEDICATION DUE. PT REMAINS UP TO CHAIR AWAITING BREAKFAST. PT REPORTS 2/10 ACHING PAIN IN ABDOMEN, PT REQUESTS TYELNOL, SEE MAR FOR MEDICATION GIVEN. PT DENIES NAUSEA. THIS RN UNABLE TO FIND NOTES INDICATING THAT CENTRAL LINE DRESSING HAS BEEN CHANGED PER PROTOCOL. DRESSING REMAINS INTACT BUT APPEARS OVERDUE FOR CHANGE. CENTRAL LINE DRESSING CHANGE DONE PER PROTOCOL. 0CM EXPOSED. NEW DRESSING AND BIO PATCH IN PLACE. EACH LUMEN FLUSHED AND HEPARIN LOCKED PER PROTOCOL. ALCOHOL CAPS APPLIED. PT FULLY ALERT AND ORIENTED AND RESPONDING TO QUESTIONS APPROPRIATLY. STAND BY ASSIST UP TO RESTROOM, PT USES FRONT WHEEL WALKER FOR STABILITY. PT CONTINUES TO NEED ASSISTANCE WITH STANDING FROM TOIELT AND WITH MAX CARE. LOWER EXTREMITY EDEMA CONTINUES. PT ALSO REPORTS SWELLING IN HANDS (NONE NOTED) AND REPORTS HER RIGHT RING, PINKY, AND MIDDLE FINGERS CONTINUE TO BE NUMB. PT REPORTS SHE HAS TROUBLE "DOING STUFF" BECAUSE OF THE NUMBNESS. G-TUBE FLUSHED WITH 20ML TAP WATER, MEDICAITON GIVEN, AND FLUSHED WITH ADDITIONAL 40ML TAPE WATER. NO ISSUES NOTED. PT ABLE TO MINIMALLY ASSIST BUT CONTINUES TO HAVE DIFFICULTY DOING G-TBUE CARE INDEPENDANTLY, UNABLE TO PROBLEM SOLVE WHEN LINE DOES NOT EASILY FLUSH BY GRAVITY, THIS RN ASSISTS. YELLOW DRAINAGE CONTINUES TO BE NOTED AROUNG G-TUBE INCERTION SITE. LAPAROSCOPIC SITES X2 REMAIN WNL, EDGES WELL APROXIMATED, [address] AT EACH SITE. NO REDNESS OR DRAINAGE NOTED. MIDLINE INCISION WELL APROXIMATED AT CEPHALIC END, CAUDIAL END SHOWS SOME SEPARATION OF EDGES WITH SMALL PIECE OF FAT/OMENTUM TISSUE NOTED THROUGH WOUND. MIDLINE INCISION CONTINUES DRAINING, NOW MODERATE, AMOUNTS OF SERIOUS ANGUINOUS FLUID. GAZUE TO CAUDAL END NOW SATURATED, NEW GAUZE APPLIED. GAUZE OVER OLD HANSA SITE 70% SATURATED WITH SEROSANGUINOUS DRAINAGE, NEW GAUZE APPLIED, OTHERWISE WNL. PT REMAINS UP TO CHAIR. NO ADDITIONAL REQUESTS OR COMPLAINTS. PT EATING BREAKFAST. CALL LIGHT ES ERNST.
--- NOTE | 2021-02-15 09:30 | NUR ---
THIS RN TO ROOM TO CHECK ON PT. PT UP WITH PHYSICAL THERAPY, AMBULATING IN HEATH. PT REPORTS FEELING TIRED WITH AMBUALTION. REPORTS ABDOMINAL PAIN IS "MUCH BETTER." PT DENIES ADDITIONAL REQUESTS OR COMPLAINTS. CONTINUES WORKING WITH PHYSICAL THERAPIST.
[2021-02-15] MEDS ORDERED: ACETAMINOPHEN500 MG PO (10:07)
[2021-02-15] MEDS ORDERED: SUCRALFATE1 GM PT (10:08)
[2021-02-15] MEDS ORDERED: PANTOPRAZOLE SO40 MG PO (10:09)
[2021-02-15] MEDS ORDERED: MELATONIN3 MG PO (10:09)
[2021-02-15] MEDS ORDERED: MELATONIN1 MG PO (10:09)
--- NOTE | 2021-02-15 10:20 | NUR ---
THIS RN TO ROOM TO CHECK ON PT. PT RESTING IN RECLINER WITH EYES CLOSED. RESPIRATIONS EVEN AND UNLABORED. PT ALLOWED TO REST. CALL LIGHT WITHIN REACH.
--- NOTE | 2021-02-15 10:50 | NUR ---
MD ORDERS FOR WOUND CARE ACKNOWLEDGED. THIS RN TO ROOM TO ASSESSES WOUNDS. GAUZE OVER HANSA SITE AND LOWER MIDLINE INCISION REMAINS INTACT. MIDLINE GAUZE REMOVED, 90% SATURATED WITH SERIOUSANUNINOUS FLUID. SMALL AMOUNT OF UNDERLYING TISSUE CONTINUES TO COME THROUGH LOWER MIDLINE INCISION. CHARGE NURSE, DIANN, CALLED TO BEDSIDE TO ASSESS WOUND AND STATES TO LEAVE WOUND IS AT THIS TIME. CALL PLACED TO DR BATISTA FOR UPDATE. DR. BATISTA IN OR AT THIS TIME. AWAITING CALL BACK. NEW GAUZE PLACED OVER CAUDAL END OF MIDLINE INCISION, SECURED WITH TAPE. STAND BY ASSIST UP TO RESTROOM. ONGOING DIARRHEA IN SMALL AMOUNTS NOTED. PT ASSISTED WITH MAX CARE. STAND BY ASSIST BACK TO CHAIR. PT REPORTS ABDOMINAL PAIN HAS RESOLVED, NOW 0/10. NO ADDITIONAL REQUESTS OR COMPLAINTS AT THIS TIME. CALL LIGHT WITHIN REACH.
--- NOTE | 2021-02-15 11:05 | NUR ---
CALLED VIA GEETHA GARDINER TO UPDATE ON INCISION STATUS PHOTO NOW ON CHART. HE VERBALIZED BACK TO LEAVE CESIA AND REMOVE CENTRAL LINE.
--- NOTE | 2021-02-15 12:00 | NUR ---
THIS RN TO ROOM TO CHECK ON PT. PT REMAINS UP TO CHAIR. LUNCH DELIVERED. PT DRESSED WITH ASSISTANCE FROM HARPSICHORD MAKER. AWAITING DR. BATISTA'S ARRIVAL TO ASSESS WOUND PRIOR TO DISCHARGE. PT DENIES PAIN AND NAUSEA AT THIS TIME. NO ADDITIONAL REQUESTS OR COMPLAINTS. CALL LIGHT WITHIN REACH.
--- NOTE | 2021-02-15 12:20 | NUR ---
Notified by city alderman. Pts RN is concerned about pts incision. They have called Dr. Ambriz in surgery and he wants to see the wound before pt is discharged. Per Or, he will finish surgery at 1pm and see pt. Called and spoke with Estela at [facility] and updated. She states she will call her patient transportation driver and ask her to extend her time until [id number] in case is running late.
--- NOTE | 2021-02-15 12:43 | NUR ---
CECY GARDINER PRIMARY NURSE IS CONCERNED ABOUT INCISION TODAY. PICTURE TAKEN, PICTURE WALKED TO SURGERY FOR TO SEE VIA MADELINE GARDINER. SAID HE WOULD LIKE TO LOOK AT IT IF POSSIBLE BEFORE DISCHARGE.
--- NOTE | 2021-02-15 13:27 | NUR ---
PT READY FOR DISCHARGE. VITAL SIGNS STABLE. MEDICATION GIVEN THROUGH G-TUBE. G-TUBE FLUSHED WITH 40ML TAPE WATER. PT TOLERATED WELL AND HELPED WITH 50% OF G-TUBE CARES. MD UNABLE TO MAKE IT TO BEDSIDE TO ASSESS WOUND AT THIS TIME. TRANSPORT PERSONELL UNABLE TO WAIT TO TRANSPORT PT. CHARGE NURSE AND LADLE LINER HELPER UPDATED. PT VERBALZIES UNDERSTANDING OF NEW PLAN OF CARE. NO ADDITIONAL REQUESTS OR COMPLAINTS. PT REMAINS UP TO CHAIR AND STATES "I'LL JUST TAKE A LITTLE NAP." MIDLINE INCISION CONTINUES TO DRAIN AT CAUDAL END AND TISSUE IS PROTRUDING BETWEEN STABLES. G-TUBE WNL. HANSA SITE UNCHANGED. PTS LUNG SOUNDS CLEAR. HEART TONES REGULAR. PT NOTES THAT SHE WAS UNABLE TO PUT ON SHOES "BECAUSE MY FEET ARE SO SWOLLEN." CALL LIGHT WITHIN REACH.
--- NOTE | 2021-02-15 13:30 | NUR ---
Notified by director of casework services special needs bus driver for [employer] is here. Went and spoke with her, she is aware as Estela has notified her they might be a delay. She states she can wait until 2 pm, but no longer. Offered to buy her lunch or snack. She states she will go to the cafeteria and get a snack and will return by 2 pm.
--- NOTE | 2021-02-15 14:00 | NUR ---
Notified by staff, [facility] motor coach bus driver had to leave. Called and spoke with Estela at [facility] and apologized and she states its ok we can call tomorrow and set up transport if pt is medically cleared. Called and spoke with the OR charge and asked him to tell Dr. Ambriz to not hurry as transport has left.
--- NOTE | 2021-02-15 14:28 | NUR ---
Spoke with Yeni and updated, she will hopefully go to [facility] tomorrow. She states understanding and is aware Dr. Ambriz wants to view her incision.
--- NOTE | 2021-02-15 15:16 | NUR ---
THIS RN TO ROOM TO CHECK ON PT. PT REMAINS UP TO CHAIR. PT DENIES PAIN AND NAUSEA. PT ASSISTED WITH CALLING HER DAUGHTER AND HER WORK USING ROOM PHONE. PT DENIES ADDITIONAL REQUESTS OR COMPLAINTS AT THIS TIME. CALL LIGHT WITHIN REACH. BED RAILS UP.
--- NOTE | 2021-02-15 16:11 | NUR ---
THIS RN TO ROOM TO CHECK PT. PT CHEERFUL, DENIES PAIN AND NAUSEA. PT UP FOR SHOWER WITH RESOURCE CONSERVATIONIST AND NEW PHOTOGRAPHIC SPECIALISTSHYAM. GAZUE DRESSINGS REMOVED. CENTAL LINE COVERED FOR SHOWER. NO ADDITIONAL REQUESTS OR COMPLAINTS. CALL LIGHT WITHIN REACH. RESOURCE CONSERVATIONIST ASSISTING PT.
--- NOTE | 2021-02-15 16:36 | NUR ---
PT POST OP DAY 9 AFTER DUODENAL ULCER AND BILE LEAK REPAIR. PT UP WITH STAND BY ASSIST TO AMBULATE IN HEATH AND TO CHAIR FOR ALL OF SHIFT. PT TOELRATING 60G CARB DIET WITH GOOD INTAKE, NO NAUSEA OR DIARRHEA NOTED. SOFT BOWEL MOVEMENTS CONTINUE. G-TUBE IN PLACE, LEAKING YELLOW FLUID AROUND INCETION SITE. G-TUBE FLUSHES WELL, CARFATE SLURRIES GIVEN, FLUSEHED X2 WITH 40ML TAP WATER. PT ABLE TO MINIMALLY ASSIST WITH G-TUBE USE. G-TUBE OTHERWISE REMAINS CLAMPED. OLD HANSA SITE CONTINUES TO LEAK SMALL AMOUNTS OF SERIOUS ANGUINOUS FLUID. GAUZE IN PLACE OVER SITE FOR PT COMFORT. MIDLINE INCISION MORE NEAR CAUDIAL END OF INCISION. SMALL PIECE OF OMENTUM OR FAT TISSUE POKING THROUGH. AWAITING MD EVALUATION. MIDLINE INCISION LEAKING MODERATE AMOUNTS OF SERIOUS FLUID NEAR CUADAL END WELL. GAUZE IN PLACE FOR PT COMFORT. CENTRAL LINE DRESSING CHANGE THIS SHFIT, HEAPRIN LOCKED. PRN TYELNOL GIVEN X1. PT VOIDING QUANTITY SUFFICIENT. PT USES CALL LIGHT AND MAKES NEEDS KNOWN.
--- NOTE | 2021-02-15 17:31 | NUR ---
THIS RN TO ROOM WITH DR. BATISTA FOR WOUND EVALUATION. GAUZE REMOVED. DR. BATISTA STATES WOUND IS WNL. VERBAL ORDER FOR ABDOMINAL BINDER GIVEN. ORDER ENTERED. STATES NOW OK TO REMOVE SUBCLAVAIN LINE. GAUZE REAPPLIED TO CAUDIAL MIDLINE INCISION. 2X2 GAUZE OVER HANSA SITE WHICH IS NO LONGER LEAKING VERY MUCH FLUID. PT FINISHING DINNER. NO ADDITIONAL REQUESTS OR COMPLAINTS. CALL LIGHT WITHIN REACH. PT DENIES PAIN AND NAUSEA.
--- NOTE | 2021-02-15 18:20 | NUR ---
THIS RN TO ROOM TO CHECK ON PT. PT FINISHED WITH DINNER. 1PERSON ASSIST AND FWW UP TO RESTROOM. PT ASSISTED WITH STANDING AND WITH MAX CARE. PT AMBULATES IN HEATH WITH STAND BY ASSIST AND FRONT WHEEL WALKER TO MAIN NURSES STATION AND BACK TO ROOM. PT REPORTS FATIGUE WITH AMBULATION. PT BACK TO BED. ABDOMINAL BINDER PLACED. SUBCLAVIAN CENTRAL LINE DC'D PER PROTOCOL BY ZULEYKA CROW WITH ASSISTANCE FROM THIS RN. OCCLUSIVE DRESSING APPLIED WITH GAUZE, PETROLIUM, AND OPSITE. PT IN [place] POSITION DURING PROCEEDURE. PT REPOSITIONED TO SEMIFOWLER POSITION WITH HEAD OF BED ELEVATED TO 30 DEGREES. PT DENIES ADDITIONAL REQUESTS OR COMPLAINTS. CALL LIGHT WITHIN REACH. BED RAILS UP.
--- NOTE | 2021-02-15 19:30 | NUR ---
REPORT GIVEN TO ZULEYKA JOE, WHO IS ASSUMING CARE OF PT.
--- NOTE | 2021-02-15 20:00 | NUR ---
IN TO GET VITALS, PT IN BED, ICE WATER FILLED, NO DOES NOT NEED TO VOID AT THIS TIME, WILL CALL WHEN URGE ARRISES, NO FURTHER NEEDS AT THIS TIME
--- NOTE | 2021-02-15 20:35 | NUR ---
IN TO PROVIED PT A WARM BLANKET, NO FURRTHER NEEDS AT THIS RIME
--- NOTE | 2021-02-15 21:05 | NUR ---
AWAKES EASILY, NO C/O PAIN, NO IV, DRESSING L NECK AREA PREVIOUS CL SITE. INTACT. BRUISING ARMS AND ABD. SOFT, TENDER, MIDLINE INCISION W CESIA IN PLACE, SLIGHT SS DRAINAGE AT BASE. PROTRUDING AREA, INTACT. WILL LEAVE CESIA IN PLACE PER ORDERS. OLD HANSA SITE DRESSING WITH OLD DRAINAGE, GT PATENT, FLUSHED AFTER CARAFATE SLURRY INFUSED AT A SLOW PACE, TOLERATED WELL. ON ROOM AIR. COOP. TOLERATING FLUIDS WELL
--- NOTE | 2021-02-15 22:30 | NUR ---
IN TO ASSIST PT TO THE TOILET, PT AWOKE WITHTHE NEED TO VOID AND SOME INCONT, NEW ATTENDS ON, HOSPT GOWN PROVIDED, DISCHARGE CLOTHES PUT OFF TO THE SIDE AT THIS TIME, ICE WATER FILLED, PT RESTING IN BED, NO FURTHER NEEDS AT THIS TIME
--- NOTE | 2021-02-16 00:23 | NUR ---
awake, given snack on requests, no c/o pain, turns and repositions in bed with minimum of help, tolerating fluids well, gt patent, clamped
--- NOTE | 2021-02-16 02:09 | NUR ---
awakes easily, abd binder in place, gt patent, carafate slurry infused, cooperative, turn self in bed
--- NOTE | 2021-02-16 02:50 | NUR ---
INI TO ASSIST PT TO THE TOILET, NO TO FURETHER NEEDS
--- NOTE | 2021-02-16 04:35 | NUR ---
IN TO TO ASSIST PT TO THE TOILET, VSS, I&Os CHARTED, NO FURTHER NEEDSAT THIS TIME
--- NOTE | 2021-02-16 04:50 | NUR ---
On room air, more alert, up to br with assist, was incontinent of urine in attends. Midline abd incision with segundo in place, protruding at base, old afia site with ss drainage small amount, dressing changed earlier on shift. wearing abd binder. Lupper abd GT patent, received carafate slurry through it, patent. abd tender, katerine, stated passing gas. generalized edema, pt very obese, tolerating liquids and diet well. Pt is to be dc'd to SNF today
--- NOTE | 2021-02-16 06:37 | NUR ---
uP INC HAIR, RESTING, EYES CLOSED, NO DISTRESS,CALL LIGHT AT HANDS REACH
--- NOTE | 2021-02-16 07:34 | NUR ---
Shift report received from ZULEYKA Quesada. Pt resting safely w/ call light in reach. pt denies any needs at this time.
--- NOTE | 2021-02-16 07:50 | NUR ---
PT WAS ALSEEAshtyn IN THEIR RECLINER. WHITEBOARD WAS UPDATED. CALL LIGHT IS WITHIN REACH. WILL CHECK BACK LATER.
--- NOTE | 2021-02-16 08:30 | NUR ---
PT SITTING UP IN CHAIR EATING BREAKFAST. MORNING ASSESMENT COMPLETED AND SCHEDULED MEDS GIVEN PER PROVIDER ORDERS. PT DENIES ANY PAIN, NAUSEA, OR NEEDS AT THIS TIME.
--- NOTE | 2021-02-16 09:37 | NUR ---
SPOKE WITH JAY AT [facility]. THEY WILL BE ABLE TO TRANSPORT PATIENT TO SNF AT 2PM TODAY. UPDATED STAFF. NOTIFIED DR BATISTA HARD SCRIPTS NEEDED FOR [facility] AND [facility]HAL FOR SNF. HE WILL PROVIDE. UPDATED STAFF.
--- NOTE | 2021-02-16 09:45 | NUR ---
UPDATED PATIENT ON PLANNED 2PM TRANSFER TO SNF. SHE IS VERY POSITIVE ABOUT GOING AND DENIES QUESTIONS. STATES SHE IS GOING TO CALL HER FAMILY AND LET THEM KNOW. SHE HAS CELL PHONE IN HER HAND.
--- NOTE | 2021-02-16 10:00 | NUR ---
Pt finished working w/ PT, now sitting up in chair safely w/ call light in reach. Pt denies any pain, nausea, or needs at this time.
--- NOTE | 2021-02-16 12:06 | NUR ---
Pt sitting up in chair eating lunch, call light in reach, and no needs at this time.
--- NOTE | 2021-02-16 14:01 | NUR ---
Report called to ZULEYKA Milner at [facility]. Transportation from [facility] here for pt all belongings taken w/ pt. VSS on RA
== END 2021-02-16 13:50 | DRG 329 ==
LOC: ED 15:03 → CCU 18:36 → MS 18:36 → CCU 02-06 18:20 → MS 02-08 16:30
PROVIDERS: ADMIT Surgery; ATTEND Surgery
PROC: 02HV33Z Insertion of Infusion Device into Superior Vena Cava, Percutaneous Approach (ICD-10-PCS; 2021-02-04)
PROC: 0BH18EZ Insertion of Endotracheal Airway into Trachea, Via Natural or Artificial Opening Endoscopic (ICD-10-PCS; 2021-02-04)
PROC: 5A1935Z Respiratory Ventilation, Less than 24 Consecutive Hours (ICD-10-PCS; 2021-02-04)
PROC: 0DU947Z Supplement Duodenum with Autologous Tissue Substitute, Percutaneous Endoscopic Approach (ICD-10-PCS; principal; 2021-02-04 19:02)
PROC: 8E0ZXY6 Isolation (ICD-10-PCS; 2021-02-04 19:02)
DX: K26.5 Chronic or unspecified duodenal ulcer with perforation (principal); U07.1 COVID-19; J12.82 Pneumonia due to coronavirus disease 2019; K65.9 Peritonitis, unspecified; J96.01 Acute respiratory failure with hypoxia; N39.0 Urinary tract infection, site not specified; E87.1 Hypo-osmolality and hyponatremia; I48.92 Unspecified atrial flutter; I48.0 Paroxysmal atrial fibrillation; D64.9 Anemia, unspecified; E11.9 Type 2 diabetes mellitus without complications; I10 Essential (primary) hypertension; E78.00 Pure hypercholesterolemia, unspecified; M54.5 Low back pain; G89.29 Other chronic pain; E03.9 Hypothyroidism, unspecified; E66.01 Morbid (severe) obesity due to excess calories; H10.9 Unspecified conjunctivitis; Z88.5 Allergy status to narcotic agent; Z88.6 Allergy status to analgesic agent; Z87.891 Personal history of nicotine dependence; Z98.84 Bariatric surgery status; Z68.39 Body mass index [BMI] 39.0-39.9, adult
CPT/HCPCS: 00790; 31720; 51701; 71045; 74177; 80053; 80500; 81001; 83735; 85007; 85025; 87088; 93005; 93010; 93306; 94002; 94003; 94760; 97110; 97116; 97162; 97530; 99285-25; C9113; C9803; J0131; J0330; J1100; J1580; J1644; J1815; J1885; J2001; J2185; J2250; J2270; J2370; J2405; J2704; J3010; J3475; J7121; Q9967; U0003

== ENCOUNTER 2021-02-19 11:42 | Inpatient (IN) | payer MEDICARE, OTHER ==
[~2021-02-19] VITALS: Ht 162.6 cm; Wt 108.6 kg
--- NOTE | ~2021-02-19 | DS ---
[facility] [address] [place], [place] [address] Draft ADMISSION DATE: 02/19/2021 DISCHARGE DATE: 02/21/2021 REASON FOR ADMISSION: This morbidly obese 70-year-old white woman was admitted to the hospital on February 04, 2021, with severe epigastric pain and found to have a perforated duodenal ulcer in the isolated segment of her gastric bypass (pylorus). She was treated with Decadron and steroids for several days in relation to a COVID infection and hospitalization which may have contributed to her ulcer development. The perforated ulcer was initially fixed with laparoscopic closure using a Jose patch. Within two days, she had increased drainage suggestive of persistent defect and underwent laparotomy with findings of persistent leakage at the large ulcer site. On that basis, she underwent a pyloroplasty with an omental patch. A CRISTELA gastrostomy tube was placed at the same time in the isolated (distal) stomach to allow for infusion of Carafate to assist in healing of the ulcer. The drain that had been placed at the time of 2nd operation was removed as it was draining innocuous fluid. She was discharged to a local care facility in [place], [place] ([facility]) and self discharged two days prior to our current situation. She presented to the Urgent Care Clinic the day of admission, where she was found to have an abnormality of the wound including drainage of serous fluid and what appeared to be egress of omentum. I saw her in my office at that time and directly admitted her to the hospital for further evaluation and care for probable fascial dehiscence and evisceration of enteric contents including omentum. PERTINENT PHYSICAL EXAMINATION: GENERAL: Showed an obese white woman who look to be in no significant distress. VITAL SIGNS: Blood pressure 130/78, pulse 78, temperature 97.5, weight is 225 pounds. ABDOMEN: Quite obese, but soft. Skin segundo remained in the incision. In the midportion above the umbilicus was an area of herniating omentum. A few clips were removed confirming evisceration of additional abdominal contents was imminent. Gauze was applied as was tape. HOSPITAL COURSE: She was directly admitted to the hospital to the regular nursing floor, maintained in the supine position and thereafter underwent prompt abdominal exploration under general anesthesia. This included findings of eviscerating omentum and portion of mid transverse colon. There was no sign of abscess or fistula within the abdominal cavity. The peritoneal fluid appeared to be inflammatory and was Gram stain and cultured. Within 48 hours of this specimen, there were no results from the laboratory still. She was given broad-spectrum antibiotics. Closure of the fascial defect was with PATIENT NAME: JUAN LAZO DISCHARGE SUMMARY DATE OF : 50 REPORT #: [id number] PHYSICIAN: ELSI BATISTA MD PCP: LETICIA CALLAHAN MD REPORT IS CONFIDENTIAL AND NOT TO BE RELEASED WITHOUT AUTHORIZATION [facility] [address] [place] [id number] Draft interrupted #1 PDS sutures and a wound VAC was applied to the closed wound as well to provide additional suction and stabilization. She was maintained with meropenem antibiotic postoperatively, anticipating transition to Cipro and Flagyl pending Gram stain and cultures. She is doing quite well at this point. A drain was placed at the time of operation, but was found to have no sign of enteric contents or abscess fluid and was removed prior to discharge. It is our intention that she will have the wound VAC for probably about two weeks, so as to stabilize the fascial edges of the wound. She is to lift no more than 10 pounds for the next month at minimum. She will keep her usual appointment as already scheduled now about three weeks out. I will try to see her in the day surgery area where she will be having wound VAC dressing changes twice a week. DISCHARGE MEDICATIONS: Will include: 1. Cipro 750 mg b.i.d. x7 days. 2. Flagyl 250 mg p.o. t.i.d. x7 days. 3. Percocet 7.5/325 1-2 q.6 hours as needed for pain, #6. 4. She will continue her home medications which include metformin 1000 mg tablets two tablets p.o. at bedtime. 5. Cyclobenzaprine, Flexeril 10 mg p.o. at bedtime. 6. Albuterol inhaler two puffs as needed for cough. 7. Neomycin, polymyxin and dexamethasone eyedrops one drop each eye three times a day as needed. 8. Synthroid 88 mcg p.o. daily. 9. Simvastatin 10 mg p.o. daily. 10. Tylenol 1000 mg p.o. q.6 hours as needed for pain. 11. She will continue with Carafate slurry administered through her tube every 6 hours to assist in her ulcer healing and will maintain pantoprazole 40 mg p.o. b.i.d. She will also take melatonin 9 mg p.o. at bedtime. DISCHARGE DIAGNOSES: 1. Fascial dehiscence with omental evisceration, status post repair of fascia and application of wound VAC. 2. Morbid obesity. 3. Distant history of gastric bypass. 4. Recent history of perforated duodenal ulcer at bulbar portion in isolated stomach segment, status post laparoscopic Jose patch with persistent leakage requiring open laparotomy, pyloroplasty and omental pedicle graft repair. 5. Dyslipidemia. 6. Hypothyroidism. PATIENT NAME: JUAN LAZO DISCHARGE SUMMARY DATE OF : 50 REPORT #: [id number] PHYSICIAN: ELSI BATISTA MD PCP: LETICIA CALLAHAN MD REPORT IS CONFIDENTIAL AND NOT TO BE RELEASED WITHOUT AUTHORIZATION [facility] [address] [place], [place] [address], [place] [address] Draft 7. Morbid obesity. MD NICO Houston/RADHA /[id number] cc: Leticia Callahan MD Copies: ~ PATIENT NAME: JUAN LAZO DISCHARGE SUMMARY DATE OF : 50 REPORT #: [id number] PHYSICIAN: ELSI BATISTA MD PCP: LETICIA CALLAHAN MD REPORT IS CONFIDENTIAL AND NOT TO BE RELEASED WITHOUT AUTHORIZATION
[~2021-02-19 11:42] MED LIST changes: +ACETAMINOPHEN500 MG PO; +MELATONIN1 MG PO; +MELATONIN3 MG PO; +PANTOPRAZOLE SO40 MG PO; +SUCRALFATE1 GM PT
--- NOTE | 2021-02-19 13:21 | NUR ---
Direct admit to medical floor. Patient arrived a&ox4. Vital stable, afebrile. Patient on room air, respirations even and non labored. Patient has no distress. Notable g-tube intact/closed. Midline abdominal incision noted, large dressing in place over wound. Scant clear drainage noted on abd incision. IV fluids started per provider order. Allergy band placed.
--- NOTE | 2021-02-19 14:59 | NUR ---
PATIENT RETURNS TO FACILITY DIRECT ADMIT. PATIENT WAS DISCHARGED FRIDAY TO [facility] IN [place]. PATIENT IS IN SURGERY AT THIS TIME. STAFF STATES SHE DISCHARGED HERSELF FROM [facility] IN ONE DAY AND WENT HOME. CM WILL FOLLOW AGAIN.
--- NOTE | 2021-02-19 15:22 | EKG ---
[facility] [address] [place] [address] Signed Normal sinus rhythm Normal ECG When compared with ECG of 05-FEB-2021 23:07, Sinus rhythm has replaced Atrial flutter Nonspecific T wave abnormality no longer evident in Inferior leads Nonspecific T wave abnormality has replaced inverted T waves in Lateral leads QT has shortened Confirmed by AURORA GRIMES MD ([id number]) on 02/19/2021 3:21:50 PM Electronically Signed By: AURORA GRIMES MD 02/19/21 1522 PATIENT NAME: JUAN LAZO Electrocardiogram DATE OF : 50 PHYSICIAN: AURORA GRIMES MD REPORT #: [id number] REPORT IS CONFIDENTIAL AND NOT TO BE RELEASED WITHOUT AUTHORIZATION
--- NOTE | 2021-02-19 16:16 | NUR ---
02/19/21 1616 Maliha Brown 1504 PT ARRIVED TO PACU ON 10L VIA MASK. VSS. RESP EVEN AND UNLABORED WITH ORAL AIRWAY IN PLACE. 1508 PT WAKES HERSELF AND FOLLOWS COMMANDS, ORAL AIRWAY REMOVED. PT DENIES PAIN AND FALLS BACK TO SLEEP. 1510 PT WAKES AND REPORTS PAIN, 03/18. 1516 PAIN MEDICATION GIVEN, 1518 MEDICATION GIVEN PER ANESTHESIA RECORD. 1519 O2 REMOVED. RN ENCOURAGES DEEP BREATHING. 1525 PT ASLEEP AND APNEA NOTED. O2 DECREASE TO 85%. NC PLACED AT 6L AND PT WAKES TO TACTILE STIMULI AND IS ENCOURAGED TO DEEP BREATHE, PT FOLLOWING COMMANDS. 1528 PT O2 INCREASED TO 100% O2 DECREASED TO 4L VIA NC. PT REPORTS NO CHANGE IN PAIN. EDUCATION GIVEN ON BREATHING AND PAIN MEDICATION. 1540 PT ABLE TO MAINTAIN O2 ABOVE 90%, PAIN MEDICATION GIVEN. 1545 PT REPORTS 5/10 PAIN AND MORE TOLERABLE AT THIS TIME. 1555 SELVIN RN AT BEDSIDE AND ULTRASOUND IV ATTEMPTED IN RIGHT FOREARM. UNABLE TO PLACE IV AT THIS TIME. PT REPORTS PAIN INCREASED AND MEDICATION GIVEN. 1610 P2 REPORTS PAIN 2/10 AND O2 DECREASED TO 2L VIA NC. 1615 PLAN OF CARE DISCUSSED AND EDUCATION GIVEN ON WOUND VAC. VSS. O2 REMAINS ABOVE 95%.
--- NOTE | 2021-02-19 16:56 | NUR ---
Patient back to medical floor from surgery. Patient awake, a&ox4. Abdominal incision is closed and covered with wound vac dressing, wound vac on-suction set to 120mmhg. Abdominal binder intact over abdominal incions. Patient reports her pain is 4/10 and tolerable at this time. Vital signs stable, cpox intact, spo2 94% on 2l per nc. HANSA intact to LLQ; small amount of sarosang drainage noted. Patient voided. Patient has no current needs. Personal supplies and call light within reach.
--- NOTE | 2021-02-19 17:26 | NUR ---
Morphine 2mg ivp admin for reports of 6/10 abdominal pain.
--- NOTE | 2021-02-19 17:48 | NUR ---
PATIENT SITTING UP IN BED EATING DINNER. VITALS TAKEN AND REPORTED TO RN THEY ARE POST OP VITALS. CALL LIGHT IN REACH. NO FURTHER NEEDS AT THIS TIME.
--- NOTE | 2021-02-19 17:57 | NUR ---
Patient in bed eating, a&ox4. Patient reports her abdominal pain is tolerable at this time. Abd icision unchanged; closed, CDI wound vac dressing. Abd binder in place. Patient has no current needs. Personal supplies and call light within reach.
--- NOTE | 2021-02-19 20:27 | NUR ---
PATIENT ASSESMENT COMPLETED. PATIENT HAS ABD BINDER IN PLACE. G-TUBE NOTED. HANSA DRAIN EMPTIED. WOUND VAC @120 AND NO DRAINAGE NOTED. VITALS TAKEN AND RECORDED. INTAKE AND OUPUT RECORDED. PATIENT DENIES ANY PAIN OR NAUSEA. PATIENT DENIES ANY NEEDS AT THIS TIME. PATIENT IS RESTING IN BED WATHCING TV. PATIENT WAS ABLE TO EAT 100% OF HER DINNER. CALL LIGHT IN REACH.
--- NOTE | 2021-02-19 20:32 | NUR ---
VITALS CHARTED, CHARGE NURSE IN ROOM ASSESSING PATIENT ABDOMEN. ROOM TIDIED, NO OTHER IMMEDIATE NEEDS AT THIS TIME.
--- NOTE | 2021-02-19 22:31 | NUR ---
PATIENT PROVIDED WITH SNACK. PATIENTS SCHEDULED MEDICATION GIVEN PER ORDER. PATIENT DENIES ANY PAIN. NO NEEDS NOTED. CALL LIGHT IN REACH.
--- NOTE | 2021-02-19 22:49 | NUR ---
PATIENT CALLED REQUESTING SNACK, PROTEIN PACK PROVIDED, FOOD SET UP TO PATIENT'S LIKING. CALL LIGHT LEFT WITHIN REACH. NO OTHER IMMEDIATE NEEDS AT THIS TIME.
--- NOTE | 2021-02-19 23:03 | NUR ---
PATIENT RESTING IN BED EATING A SNACK AND WATCHING TV. PATIENT DENIES ANY NEEDS. CALL LIGHT IN REACH.
--- NOTE | 2021-02-20 00:43 | NUR ---
PATIENT CALLED NURSES STATION REQUESTING ICE WATER. ICE WATER PROVIDED, INTAKE DOCUMENTED, CALL LIGHT LEFT WITHIN REACH. NO OTHER IMMEDIATE NEEDS AT THIS TIME.
--- NOTE | 2021-02-20 02:37 | NUR ---
PATIENTS VITALS TAKEN AND RECORDED. PATIENTS HANSA EMPTIED. PATIENT HAS BEEN PICKING AT WOUND VAC DRESSING. PATIENT EDUCATED THAT THE DRESSING IS TO STAY IN PLACE. PATIENTS WOUND VAC DRESSING REINFORCED ON THE TOP PORTION. PATIENTS WOUND VAC IS STILL DELIVERING THERAPY AT 120 AND NO LEAKS NOTED. PATIENTS G-TUBE "EMPTIED" PER PATIENT REQUEST 90ML OF DARK BROWN LIQUID DRAINED. G-TUBE FLUSHED WITH 20ML OF WATER. PATIENT DENIES ANY PAIN OR NAUSEA. PATIENT DENIES ANY NEEDS. CALL LIGHT IN REACH.
--- NOTE | 2021-02-20 06:47 | NUR ---
PATIENT ASSISTED TO THE BSC. PATIENT WAS ABLE TO VOID. PATIENT IS BACK IN BED RESTING. PATIENTS IV ABX INFUSING PER ORDER. PATIENTS VITALS TAKEN AND RECORDED. HANSA EMPTIED. INTAKE AND OUTPUT RECORDED. PATIENT ONLY REPORTS PAIN WITH MOVEMENT. PATIENT DENIES THE NEED FOR PAIN MEDICATION AT THIS TIME. NO FURTHER NEEDS NOTED. CALL LIGHT IN REACH.
--- NOTE | 2021-02-20 09:06 | NUR ---
awake, on 2L NC, IS at bedside, return demonstration done. Tolerating diet well, no emesis, fresh fluids at bedside. iv abx infusing LAC patent. upper abd PEG tube patent. abd incision w wound vac in place, abd binder. pt trying to pick at edges of wound vac dressing, remionder of safety and why its not a good idea. stated "nobody told me anything about it". as per report pt has had numerous reminders. will continue to reinforce teaching. forgetful, pleasant. coop with assessment. lungs dim at bases. bed alarm on
--- NOTE | 2021-02-20 09:12 | NUR ---
edema to le 2+. fluid filled blister and some open, pink center, scds in place.
--- NOTE | 2021-02-20 09:22 | NUR ---
PATIENT IN BED WATCHING TV. VITALS AND I&O'S CHARTED. WARM WASHCLOTH GIVEN. PATIENT REFUSED SHOWER/BED BATH AT THIS TIME. CALL LIGHT IN REACH. NO FURTHER NEEDS AT THIS TIME.
--- NOTE | 2021-02-20 10:37 | OR ---
[facility] [address] [place], [place] [address] Signed DATE OF OPERATION: 02/19/2021 SURGEON: Elsi Batista MD PREOPERATIVE DIAGNOSES: 1. Recent open repair of perforated duodenal ulcer. 2. Wound dehiscence with partial omental evisceration. 3. Morbid obesity; history of gastric bypass operation in the distant past. POSTOPERATIVE DIAGNOSES: 1. Recent open repair of perforated duodenal ulcer. 2. Fascial wound dehiscence with omental evisceration. 3. Morbid obesity; history of gastric bypass operation in the distant past. PROCEDURES: 1. Wound exploration and laparotomy with peritoneal irrigation, culture of peritoneal fluid. 2. Placement of 7 mm flat Lukas drain. 3. Closure of fascial dehiscence with multiple interrupted PDS sutures. 4. Application of wound VAC device. ANESTHESIA: General endotracheal, Elsi Lorenzana CRNA INDICATIONS: This 70-year-old white woman was recently discharged from the hospital after a rather prolonged hospitalization following perforated duodenal ulcer. Several weeks prior to that, she had suffered COVID disease and steroid treatment with Decadron. A perforated duodenal ulcer was noted which was rather large at the pyloric channel, initially repaired by laparoscopic Jose patch, but with persistent drainage requiring open laparotomy, pyloroplasty, and application of omental patch with placement of drain and concurrent placement of gastrostomy tube of gastric remnant. It is noted she has undergone a gastric bypass operation in the distant past in the distal stomach concordant to the perforated duodenal or channel ulcer that was isolated from usual enteric flow. The G-tube was used to infuse Carafate for wound healing. She was discharged to a prison facility in [place], [place] recently but wished to leave there and was self discharge to home. She noted some serous drainage and small fatty tissue in the region of the incision Electronically Signed By: ELSI BATISTA MD 02/20/21 [facility] PATIENT NAME: JUAN LAZO OPERATIVE REPORT DATE OF : 50 REPORT #: [id number] PHYSICIAN: ELSI BATISTA MD PCP: CHRISTINE BALDWIN MD REPORT IS CONFIDENTIAL AND NOT TO BE RELEASED WITHOUT AUTHORIZATION [facility] [address] [place], [place] [address] Signed where clips were still in place. She presented to Urgent Care and promptly referred to my office where she was seen directly by me. This showed findings consistent with eviscerating omentum from wound separation and fascial dehiscence. She was promptly admitted to the hospital, given IV fluids, antibiotics, and now to undergo exploration of the wound, closure of the fascial defect as appropriate and other indicated procedures. She understands risks of bleeding, infection, and other unforeseen complications and wished to proceed. FINDINGS: Indeed the wound had a gummy and chronically inflamed appearance. There was no abscess per se. Inflammatory fluid was noted and Gram stain and cultures were obtained. The running PDS suture that was noted appeared to have pulled through the fascia rather than broken in any way. Irrigation was undertaken and separation of intra-abdominal viscera from the overlying fascial edges accomplished. There was no evidence of enteric fistula, duodenal leakage or anything of that sort. The gummy fascial edges were ultimately reapproximated after lavage of the abdomen and obtaining cultures and in an interrupted technique with absorbable PDS suture and ultimately a wound VAC applied as well. DESCRIPTION OF PROCEDURE: The patient was brought to the operating room, given a general endotracheal anesthetic. Preoperative antibiotic meropenem was given. Sequential compression device stockings were used. The abdomen was prepared with a Betadine-based scrub solution and draped sterilely. Hemoclips were removed. Once the skin clips were removed, the skin was gently and there appeared to quite obviously the evisceration of omentum, but no hollow viscus evisceration. The wound was opened bluntly. The subcutaneous space and the PDS suture that was previously placed in a running bidirectional configuration identified and appeared to have pulled through the fascia rather than fracture or anything of that sort. That suture was removed. A good plane was established between the omentum on the left side and ultimately on the right side. The transverse colon was identified. Examination of the upper abdomen showed the most extensive incorporation of soft tissue. There was no evidence of bile stain or anything to suggest enteric fistula or abscess. Irrigation was undertaken with antibiotic containing saline solution until clear. Through a separate stab incision inferiorly, a 7 mm flat Lukas drain was placed in the subperitoneal layer. The fascial edges were reapproximated with interrupted #1 PDS suture in a Smead-Perdomo internal retention type configuration. Irrigation was undertaken of the subcutaneous space and a wound VAC sponge cut to size 120 mm Hg continuous pressure with the Barrios and Nephew device. Electronically Signed By: ELSI BATISTA MD 02/20/21 [facility] PATIENT NAME: JUAN LAZO OPERATIVE REPORT DATE OF : 50 REPORT #: [id number] PHYSICIAN: ELSI BATISTA MD PCP: CHRISTINE BALDWIN MD REPORT IS CONFIDENTIAL AND NOT TO BE RELEASED WITHOUT AUTHORIZATION [address] [address] Signed The G-tube which was not far from this incision was left in situ. The patient was extubated without excessive contractions in a deep state and transferred to the recovery room in good condition. BLOOD LOSS: Minimal. COMPLICATIONS: None. MD NICO Houston/RADHA /[id number] cc: MD Kyle Stein MD Copies: KYLE PEARCE DO ~ Electronically Signed By: ELSI BATISTA MD 02/20/21 1037 PATIENT NAME: JUAN LAZO OPERATIVE REPORT DATE OF : 50 REPORT #: [id number] PHYSICIAN: ELSI BATISTA MD PCP: CHRISTINE BALDWIN MD REPORT IS CONFIDENTIAL AND NOT TO BE RELEASED WITHOUT AUTHORIZATION
--- NOTE | 2021-02-20 10:37 | HP ---
[facility] [address], [place] [address] Signed ADMISSION DATE: 02/19/2021 REASON FOR ADMISSION: Wound dehiscence, beginnings of evisceration. HISTORY OF PRESENT ILLNESS: This morbidly obese 70-year-old white woman, who is admitted into the hospital on February 04, 2021 with severe epigastric pain and found to have perforated duodenal ulcer in the isolated segment of her gastric bypass. She had been treated with Decadron steroids for several days in relation to COVID infection. She was in the intensive care unit. She was found to have a perforated duodenal ulcer and underwent laparoscopic closure with a Jose patch laparoscopically applied. Within two days, she was having increased drainage, which was suggestive of persistent defect and on that basis, she underwent open exploration of the abdomen and closure of the gastrojejunal pyloric channel perforation with application of omental graft. A CRISTELA gastrostomy tube was placed in the isolated stomach to allow for infusion of Carafate. She recovered completely ultimately and a drain that had been placed in the area of the duodenal repair was removed and she had no adverse drainage from it. She was discharged to a local care facility in [place], [place]. I was called over the weekend that she did not want to stay there anymore and she discharged herself. She presented to the Urgent Care today just across from my office where she was found to have an abnormality of the wound including drainage of serous fluid. I saw her promptly in my office where she was found to have quite obviously beginnings of evisceration of omentum through the skin. Palpation deep within the abdominal pannus revealed a defect in the fascia. She is admitted for further evaluation and care. PERTINENT PAST MEDICAL HISTORY: Does include a gastric bypass operation in the distant past for obesity and the aforementioned remedies of duodenal ulcer. PHYSICAL EXAMINATION: GENERAL: Obese white woman who looks to be in no distress whatsoever. VITAL SIGNS: Blood pressure 130/78, pulse 78, and temperature 97.5, weight is 225 pounds. NECK: Normal. CHEST: Shows normal respiratory excursion. Pulses regular. ABDOMEN: Quite obese, but soft. In the mid portion above the umbilicus is an area of herniating omentum. A few clips were removed confirming that evisceration was imminent. Electronically Signed By: ELSI BATISTA MD 02/20/21 [facility] PATIENT NAME: JUAN LAZO HISTORY AND PHYSICAL DATE OF : 50 REPORT #: [id number] PHYSICIAN: ELSI BATISTA MD PCP: CHRISTINE BALDWIN MD REPORT IS CONFIDENTIAL AND NOT TO BE RELEASED WITHOUT AUTHORIZATION [facility] [address], [place] [address] Signed Gauze was applied to the wound as was tape. EXTREMITIES: Showed no new edema. ASSESSMENT: The patient has separation of her fascia without sign of toxicity or other issue at this time. She is promptly admitted to the hospital anticipating irrigation, culture, and closure of the fascial defect today. We discussed the risks of bleeding, infection, need for other indicated procedures. She understands and wished to proceed. MD NICO [place]/RADHA /[id number] cc: Kyle Fields MD Copies: KYLE FIELDS DO ~ Electronically Signed By: ELSI BATISTA MD 02/20/21 1037 PATIENT NAME: JUAN LAZO HISTORY AND PHYSICAL DATE OF : 50 REPORT #: [id number] PHYSICIAN: ELSI BATISTA MD PCP: CHRISTINE BALDWIN MD REPORT IS CONFIDENTIAL AND NOT TO BE RELEASED WITHOUT AUTHORIZATION
--- NOTE | 2021-02-20 10:50 | NUR ---
CALMER, RESTING, AWAKENS EASILY,ABD BINDER IN PLACE, WOUND VACK IN PLACE DR IN ROOM EARLIER,
--- NOTE | 2021-02-20 11:00 | NUR ---
Pt lives in a small home with her daughter and her 2 young children. Daughter can assist if needed. Daughter Pita lives in [place] and asks we call her as sister has issues with drugs. Pt has a walker and a cane. She states her house is to small for a walker and she cannot use. Pt recently discharged and return in 4 days due to dehisence of wound Pt went AMA from a SNF last weekend. Pt plans on dc to home with her daughter when she discharges.
--- NOTE | 2021-02-20 13:25 | NUR ---
sitting up in bed, took O2 off, sats 93% room air, no distress. abd bider over peg tube and abd wound vac, lower legs elevated some blisters intact fiuid filled and some open, pink center, dry, scds in place. eating, tolerating well. No c/o pain. sl patent
--- NOTE | 2021-02-20 13:42 | NUR ---
PT AWAKE IN BED WATCHING TV. CALL LIGHT WITHIN REACH. NO FURTHER NEEDS AT THIS TIME.
--- NOTE | 2021-02-20 14:31 | NUR ---
Up to bsc, voided large amont of dark yellow colored urine. lotion to buttocks area. attends in place. 1PA, tolerated well, back to bed. on room air. midline abd incision covered with wound vac, peg tube in place. afia w ss small amount of drainage. cough dry, non productive present at times. scds off at her requests at this time. edematous, R inner lower by ankle area blisters x2 fluids filled and one open dry, pink center. faint pulses, elevated. tolerating diet and fluids well, no c/o pain. iv abx infusing. uses call light, forgetful at imes, has left wound vac dressing in place no more fidgetting with it noted.
--- NOTE | 2021-02-20 18:15 | NUR ---
Pt in bed, up to BSC, voiding QS earlier in shift. on room air, lungs dim at bases, uses O2 at HS chronic, was using O2 earlier t/o the day and took off, sats WNL. upper abd PEG tube patent, w greenigh drainage. flushed after carafate med infused, patent, no liquid aspirated. and tender, soft, katerine, stated passing gas and hed bm's yesterday. abd wound vac in place, HANSA with minimum of ss drainage. abd binder in place. pt was picking at dressings, reoriented not to. edematous legs scds in place, blisters in legs legs elevated.
--- NOTE | 2021-02-20 18:50 | NUR ---
PT REFUSED BSC OFFER FROM THIS [employer]. PT IS AWAKE AND IN BED. PT STATES "THERE JUST ISNT THE URGE YET." RN TATYANA NOTIFIED.
--- NOTE | 2021-02-20 19:58 | NUR ---
RECEIVED REPORT FROM DAY SHIFT RN PATIENT IS RESTING IN BED WATCHING TV. NO NEEDS NOTED. CALL LIGHT IN [facility].
--- NOTE | 2021-02-20 20:00 | NUR ---
PT CALLED, REQUESTED HER CURTAINS BE CLOSED. NO OTHER NEEDS
--- NOTE | 2021-02-20 21:40 | NUR ---
PATIENT ASSESMENT COMPLETED. PATIENTS INTAKE AND OUPUT RECORDED. HANSA EMPTIED. MEDICATIONS GIVEN PER ORDER. IV ABX INFUSING PER ORDER. PATIENT DENIES ANY PAIN OR NAUSEA. WOUND VAC ADMIN THERAPY AT 120 WITH NO LEAKS NOTED. ABD BINDER IN PLACE. PATIENT IS ON RA AT THIS TIME. PATIENT DENIES ANY SOB. PATIENT DENIES ANY FURTHER NEEDS. CALL LIGHT IN REACH.
--- NOTE | 2021-02-20 22:30 | NUR ---
PATIENT ASSISTED TO THE BSC A SBA. PATIENT WAS ABLE TO VOID AND HAVE SMALL BM. PATIENT IS NOW BACK IN BED RESTING. PATIENT DENIES ANY FURTHER NEEDS. CALL LIGHT IN REACH.
--- NOTE | 2021-02-20 23:45 | NUR ---
PT CALLED REQUESTED WARM BLANKET, IV ALARMING. ASSESSED, AND NOW INFUSING PER ORDER. NO OTHER NEEDS.
--- NOTE | 2021-02-21 00:40 | NUR ---
PATIENT ASSISTED TO THE BSC A SBA. PATIENT WAS ABLE TO VOID AND HAVE BM. PATIENT IS NOW BACK IN BED RESTING. IV ABX COMPLETED AND PATIENT IS NOW SL. PATIENT DENIES ANY FURTHER NEEDS. CALL LIGHT IN REACH.
--- NOTE | 2021-02-21 02:08 | NUR ---
PT CALLED REQUESTED A WARM BLANKET. REQUESTED A TYLENOL FOR STOMACH PAIN. WILL REPORT TO PT PRIMARY RN
--- NOTE | 2021-02-21 02:55 | NUR ---
PATIENT CALLED AND REQUESTED PAIN MEDICATION. PATIENT GIVEN PRN PAIN MEDICATION PER ORDER. PATIENT RATED PAIN AT A 5/10. ABD BINDER ADJUSTED PER PATIENT REQUEST. PATIENT IS RESTING IN BED. PATIENT DENIES ANY FURTHER NEEDS. CALL LIGHT IN REACH.
--- NOTE | 2021-02-21 03:49 | NUR ---
PATIENT ASSISTED TO THE BSC A SBA. PATIENT WAS ABLE TO VOID AND HAVE MEDIUM LOOSE BM. PATIENT IS BACK IN BED RESTING. PATIENT DENIES ANY NEEDS. CALL LIGHT IN REACH.
--- NOTE | 2021-02-21 06:25 | NUR ---
PT CALLED, UP TO BS WITH SBA. BACK TO BED, NO OTHER NEEDS AT THIS TIME.
--- NOTE | 2021-02-21 07:51 | NUR ---
this rn received report from patsy braxton. pt called quality control auditor light to get up to commode, [place] go able to assist pt to bedside commode.
--- NOTE | 2021-02-21 09:44 | NUR ---
THIS RN IN PTS ROOM TO GIVE PT HER MORNING MED. PT STATES THAT SHE HAS NO PAIN TO NOTE THIS AM. PT REQUESTING FOR A BREAK FROM HER SCDS PT TALKING ABOUT WHAT HAPPENED AT [facility]. PT REPORTING THAT STAFF THERE DIDN'T DO ANYTHING FOR HER SO SHE DID HER "FLUSHES" AND "EMPTIED THE TUBE MYSELF" THIS RN DISCUSSED WITH PT IF SHE UNDERSTANDS THAT THIS SIN'T A GOOD IDEA, PT STATES UNDERSTANDING ALTHOUGH HER IV WAS REMOVED BY HER THIS AM.
--- NOTE | 2021-02-21 09:45 | NUR ---
VS and I&O have been taken and documented. Pt states no other needs at this time. Call light is in reach informed pt to call if she needs anything else.
--- NOTE | 2021-02-21 09:50 | NUR ---
THIS RN PROVIDED PT WITH A WARM BLANKET PER REQUEST. PT HAS NO OTHER NOTED NEEDS AT [facility] TIME.
[2021-02-21] MEDS ORDERED: METRONIDAZOLE250 MG PO (10:28)
[2021-02-21] MEDS ORDERED: CIPROFLOXACIN250 MG PO (10:28)
[2021-02-21] MEDS ORDERED: OXYCODON-ACETA1 EAC2 PO (10:29)
[2021-02-21] MEDS ORDERED: MELATONIN10 M2 PO (11:02)
--- NOTE | 2021-02-21 11:16 | NUR ---
this rn in pts room to discharge pt. pt states that she wants to stay for lunch. pt joking aobut when she "picked at the tape" and the dressing came off. this rn discussed with pt not to mess with any of her drains, tubes and dressings. pt stated understanding but does not show understanding.
--- NOTE | 2021-02-21 12:15 | NUR ---
this rn noted that pt had approximately 45ml of drainage in her wound vac. while cnas were in room getting pt ready to discharge pt popped her blister on her right foot. this rn placed bacitracin and an allenyn on the top of her foot, this rn educated pt to leave this dressing in place due to protecting her skin, pt stated understanding. this rn while in room noted as pt got up from bed to go to the restroom was forgetting about her wound vac, this rn instructed pt about ensuring that she needed to take that with her when she stands up, antoinette go placed a note on the wound vac to ensure that pt and pts family will see the importance of taking that with her to the restroom. this rn reiterated to pt multiple times about leaving her dressings alone when she goes home to ensure healthy healing. pt stated understanding but did not show knowledge that this rn had been teaching. this rn discussed with charge nurse and case management. antoinette and [place] go took pt out to her car- per report from antoinette go pt able to get into car well and drove herself home.
--- NOTE | 2021-02-22 10:30 | NUR ---
Called and spoke with Luis Daniel from [facility]. They have received auth and pt may dc to home with their NPWT. Chart was sent to Vishal per Joan with orders for dressing changes. To Go bag with NPWT pump and supplies for 1 week given to Dominique Covington.
--- NOTE | 2021-02-22 14:00 | NUR ---
Called and spoke with Luis Daniel from [facility]. They have received auth and pt may dc to home with their NPWT. Chart was sent to Vishal per Joan with orders for dressing changes. To Go bag with NPWT pump and supplies for 1 week given to Dominique Covington.
--- NOTE | 2021-02-23 17:05 | NUR ---
PERLA 02/20/21 1300 Contacted [facility] and faxed completed paperwork for NPWT completed by Dr. Ambriz for auth.
== END 2021-02-21 12:30 | disposition home or self-care (01) | DRG 908 ==
LOC: MS 11:42
PROVIDERS: ADMIT Surgery; ATTEND Surgery
PROC: 3E1M38Z Irrigation of Peritoneal Cavity using Irrigating Substance, Percutaneous Approach (ICD-10-PCS; 2021-02-19)
PROC: 0JQ80ZZ Repair Abdomen Subcutaneous Tissue and Fascia, Open Approach (ICD-10-PCS; principal; 2021-02-19 15:00)
DX: T81.32XA Disruption of internal operation (surgical) wound, not elsewhere classified, initial encounter (principal); Z68.41 Body mass index [BMI] 40.0-44.9, adult; E78.5 Hyperlipidemia, unspecified; E66.01 Morbid (severe) obesity due to excess calories; E03.9 Hypothyroidism, unspecified; Z98.84 Bariatric surgery status; Y83.8 Other surgical procedures as the cause of abnormal reaction of the patient, or of later complication, without mention of misadventure at the time of the procedure
CPT/HCPCS: 00790; 80053; 80500; 85025; 87070; 87075; 87077; 87205; 93005; 93010; 94760; 94762; J0131; J0330; J1100; J1885; J2185; J2250; J2270; J2405; J2704; J2765; J3010; J7121

== ENCOUNTER 2021-03-18 18:44 | Emergency (ER) | payer MEDICARE, OTHER ==
[~2021-03-18] VITALS: Ht 162.6 cm; Wt 99.8 kg
[~2021-03-18 18:44] MED LIST changes: +CIPROFLOXACIN250 MG PO; +MELATONIN10 M2 PO; +METRONIDAZOLE250 MG PO; +OXYCODON-ACETA1 EAC2 PO
--- OUTSIDE RECORDS SUMMARY | 2021-03-18 18:46 | XMS ---
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 Elopement at [facility] 11/26/2020 18:34 - Other Details: PATIENT LWBS. CRITERIA MET - PDMP - 6 ED Visits in 6 Months - [facility] - 2 Visits in 30 Days CARE PROVIDERS TEODORA SERRANO Internal Medicine 02/28/2021-Current PHONE: [phone] CHRISTINE BALDWIN [facility] 01/22/2021-Current PHONE: [phone] NICOLASA REYES Internal Medicine: Pulmonary Disease 12/21/2018-Current PHONE: Unknown Tavo has no Care Guidelines for this patient. Care History Medical/Surgical 12/21/2018 [facility] - Patient is currently established with [facility]. If patient is seen in the ED during business hours. Please contact CHWs at [facility]. Care Recommendation: This patient has had [...] providing care. E.D. VISIT COUNT (12 MO.) 1 [facility] 9 [facility]. TOTAL 10 NOTE: Visits indicate total known visits. ED/UCC VISIT TRACKING (12 MO.) 03/18/2021 18:44 [facility] [place] TYPE: Emergency COMPLAINT: - POST OP PROBLEM 03/02/2021 09:58 [facility] [place] TYPE: Emergency DIAGNOSES: - CHEST PAIN RIGHT FOOT PAIN - Chest pain, unspecified 02/27/2021 20:35 [facility] [place] TYPE: Emergency COMPLAINT: - WOUND CARE 02/04/2021 15:04 [facility] [place] TYPE: Emergency COMPLAINT: - ABD PAIN 01/27/2021 18:[address] [facility] [place] TYPE: Emergency COMPLAINT: - COVID SYMPTOMS 01/26/2021 17:[address] [facility] [place] TYPE: Emergency COMPLAINT: - BODY ACHES DIAGNOSES: - Myalgia, unspecified site - Essential (primary) hypertension - Pure hypercholesterolemia, unspecified - Hypothyroidism, unspecified - retirement (current) use of oral hypoglycemic drugs - Type 2 diabetes mellitus without complications - Allergy status to narcotic agent - Diarrhea, unspecified - Other intermediate project manager (current) drug therapy - COVID-19 01/23/2021 19:[address] [facility] [place] TYPE: Emergency COMPLAINT: - FLU SYMPTOMS DIAGNOSES: - Fever, unspecified - Pure hypercholesterolemia, unspecified - Urinary tract infection, site not specified - Essential (primary) hypertension - salvage determiner (current) use of oral hypoglycemic drugs - Type 2 diabetes mellitus without complications - Hypothyroidism, unspecified - Other intermediate project manager (current) drug therapy - COVID-19 - Allergy status to narcotic agent 01/22/2021 20:10 [facility] [place] TYPE: Emergency COMPLAINT: - WEAKNESS, BODY ACHES DIAGNOSES: - Other intermediate project manager (current) drug therapy - Hypothyroidism, unspecified - Unspecified conjunctivitis - Allergy status to narcotic agent - Essential (primary) hypertension - Headache, unspecified - Pure hypercholesterolemia, unspecified - retirement (current) use of oral hypoglycemic drugs - COVID-19 - Type 2 diabetes mellitus without complications 01/19/2021 23:22 [facility] [place] TYPE: Emergency COMPLAINT: - COLD SYMPTOMS DIAGNOSES: - COVID-19 - Pure hypercholesterolemia, unspecified - Allergy status to narcotic agent - Headache, unspecified - retirement (current) use of oral hypoglycemic drugs - Type 2 diabetes mellitus without complications - Other intermediate project manager (current) drug therapy - Hypothyroidism, unspecified - Essential (primary) hypertension 11/26/2020 18:34 [facility] [place] TYPE: Emergency COMPLAINT: - POST OP BRUISING INPATIENT VISIT TRACKING (12 MO.) 02/19/2021 11:49 [facility] [place] TYPE: Medical Surgical COMPLAINT: - WOUND DEHISCENCE DIAGNOSES: - Hypothyroidism, unspecified - Morbid (severe) obesity due to excess calories - Hyperlipidemia, unspecified - Bariatric surgery status - Body mass index [BMI]40.0-44.9, adult - Morbid (severe) obesity due to excess calories - Other surgical procedures as the cause of abnormal reaction of the patient, or of later complication, without mention of misadventure at the time of the procedure - Other surgical procedures as the cause of abnormal reaction of the patient, or of later complication, without mention of misadventure at the time of the procedure - Bariatric surgery status - Hypothyroidism, unspecified - Hyperlipidemia, unspecified - Body mass index [BMI]40.0-44.9, adult - Disruption of internal operation (surgical) wound, not elsewhere classified, initial encounter 02/04/2021 18:36 [facility] [place] TYPE: Medical Surgical COMPLAINT: - PERFORATED VISCUS DIAGNOSES: - Body mass index [BMI] 39.0-39.9, adult - Chronic or unspecified duodenal ulcer with perforation - Other specified sepsis - Morbid (severe) obesity due to excess calories - Allergy status to analgesic agent - Type 2 diabetes mellitus without complications - Acute respiratory failure with hypoxia - Allergy status to narcotic agent - Anemia, unspecified - Paroxysmal atrial fibrillation - Body mass index [BMI] 39.0-39.9, adult - Type 2 diabetes mellitus without complications - Chronic or unspecified duodenal ulcer with perforation - Morbid (severe) obesity due to excess calories - Urinary tract infection, site not specified - Unspecified conjunctivitis - Other chronic pain - Essential (primary) hypertension - Pure hypercholesterolemia, unspecified - Other chronic pain - Allergy status to narcotic agent - Hypothyroidism, unspecified - COVID-19 - Anemia, unspecified - Unspecified atrial flutter - Hypothyroidism, unspecified - Hypo-osmolality and hyponatremia - Personal history of nicotine dependence - Acute respiratory failure with hypoxia - Unspecified atrial flutter - Peritonitis, unspecified - Paroxysmal atrial fibrillation - Pure hypercholesterolemia, unspecified - Low back pain - Low back pain - Hypo-osmolality and hyponatremia - Essential (primary) hypertension - Urinary tract infection, site not specified - Allergy status to analgesic agent - Bariatric surgery status - Bariatric surgery status - Personal history of nicotine dependence - Peritonitis, unspecified - Unspecified conjunctivitis 01/27/2021 20:[address] [facility] [place] TYPE: Medical Surgical COMPLAINT: - HYPONATREMIA/COVID PNA DIAGNOSES: - Essential (primary) hypertension - Hypomagnesemia - Essential (primary) hypertension - Urinary tract infection, site not specified - Acute respiratory failure with hypoxia - Hypokalemia - Metabolic encephalopathy - Tubal ligation status - Unspecified osteoarthritis, unspecified site - retirement (current) use of oral hypoglycemic drugs - Other intermediate project manager (current) drug therapy - Hypokalemia - Type 2 diabetes mellitus without complications - Hypothyroidism, unspecified - Other long-term (current) drug therapy - Urinary tract infection, site not specified - Chronic pain syndrome - Personal history of nicotine dependence - Hypocalcemia - Allergy status to narcotic agent - Hypomagnesemia - Type 2 diabetes mellitus without complications - Hypocalcemia - Acute respiratory failure with hypoxia - Unspecified osteoarthritis, unspecified site - Chronic pain syndrome - Allergy status to narcotic agent - Hypo-osmolality and hyponatremia - salvage determiner (current) use of oral hypoglycemic drugs - Hypothyroidism, unspecified - Hyperlipidemia, unspecified - Personal history of nicotine dependence - Dorsalgia, unspecified - Other specified postprocedural states - Tubal ligation status - Hyperlipidemia, unspecified - Other specified postprocedural states - COVID-19 - Hypo-osmolality and hyponatremia - Bariatric surgery status - Dorsalgia, unspecified - Metabolic encephalopathy - Bariatric surgery status [email or web address]
== END 2021-03-18 19:35 | disposition home or self-care (01) ==
LOC: ED 18:44
DX: T81.31XD Disruption of external operation (surgical) wound, not elsewhere classified, subsequent encounter (principal); E78.00 Pure hypercholesterolemia, unspecified; I10 Essential (primary) hypertension; E03.9 Hypothyroidism, unspecified; M19.90 Unspecified osteoarthritis, unspecified site; E11.9 Type 2 diabetes mellitus without complications; Z86.16 Personal history of COVID-19; Z87.891 Personal history of nicotine dependence; Z88.5 Allergy status to narcotic agent; Z79.899 Other long term (current) drug therapy; Z79.84 Long term (current) use of oral hypoglycemic drugs
CPT/HCPCS: 99283